=== PATIENT | female | born 1975 | race Caucasian/White ===

== ENCOUNTER → 2016-07-25 | Outpatient (CLI) | payer OTHER ==
[2016-07-25 10:26] LABS: Basophils % (A) 1 %; CH 32.5; CHCM 33.4; Eosinophils # (A) 0.2 k/uL (0-0.7); Eosinophils % (A) 2 %; HCT 43.3 % (34.0-46.0); HDW 2.27; HGB 14.3 gm/dL (11.4-16.0); Luc # (Auto) 0.19; Luc % (Auto) 2; Lymphocytes # (A) 2.4 k/uL (1.0-4.8); Lymphocytes % (A) 28 %; MCH 32.3 pg (25.0-35.0); MCHC 33.1 g/dL (31.0-37.0); MCV 97.6 fL (80.0-100.0); Mean Platelet Volume 6.5; Monocytes # (A) 0.8 k/uL (0-1.0); Monocytes % (A) 9 %; Neutrophils # (A) 5.1 k/uL (1.3-7.7); Neutrophils % (A) 58 %; RBC 4.44 m/uL (3.80-5.40); RDW 13.2 % (11.5-15.5); WBC 8.8 k/uL (3.8-10.6); WBC (Perox) 9.01
== END ==
LOC: LABWHC1 09:41
PROVIDERS: ATTEND Obstetrics & Gynecology
DX: Z01.812 Encounter for preprocedural laboratory examination (principal)
CPT/HCPCS: 36415; 85025

== ENCOUNTER 2016-08-03 07:03 | Day surgery (SDC) | payer OTHER ==
--- NOTE | 2016-08-02 11:51 | P.HPOB ---
History of Present Illness H&P Date: 08/02/16 Chief Complaint: family planning 40 year old presents for laparoscopic tubal ligation. Review of Systems All systems: negative Constitutional: Denies chills, Denies fever Eyes: denies blurred vision, denies pain Ears, nose, mouth and throat: Denies headache, Denies sore throat Cardiovascular: Denies chest pain, Denies shortness of breath Respiratory: Denies cough Gastrointestinal: Denies abdominal pain, Denies diarrhea, Denies nausea, Denies vomiting Genitourinary: Denies dysuria, Denies hematuria Musculoskeletal: Denies myalgias Integumentary: Denies pruritus, Denies rash Neurological: Denies numbness, Denies weakness Psychiatric: Denies anxiety, Denies depression Endocrine: Denies fatigue, Denies weight change Past Medical History Past Medical History: Hyperlipidemia, Hypertension, Supraventricular Tachycardia (SVT) Additional Past Medical History / Comment(s): PAST HX SVT-RESOLVED WITH ABLATION History of Any Multi-Drug Resistant Organisms: None Reported Past Surgical History: Adenoidectomy, Breast Surgery, Cardiac Ablation, Heart Catheterization Additional Past Surgical History / Comment(s): RT? BREAST LUMPECTOMY-BENIGN. COLPOSCOPY Past Anesthesia/Blood Transfusion Reactions: No Reported Reaction Past Psychological History: Anxiety, Depression Smoking Status: Current every day smoker Past Alcohol Use History: Occasional Additional Past Alcohol Use History / Comment(s): HAS SMOKED 1PPD SINCE AGE 17 Past Drug Use History: None Reported - Past Family History Mother Family Medical History: No Reported History Medications and Allergies Home Medications Medication Instructions Recorded Confirmed Type Atorvastatin [Lipitor] 20 mg PO HS 08/01/16 08/01/16 History Propranolol LA [Inderal LA] 80 mg PO HS 08/01/16 08/01/16 History Venlafaxine HCl [Effexor XR] 225 mg PO HS 08/01/16 08/01/16 History busPIRone HCl [Buspar] 10 mg PO HS 08/01/16 08/01/16 History Allergies Allergy/AdvReac Type Severity Reaction Status Date / Time No Known Allergies Allergy Verified 08/01/16 14:37 Exam Osteopathic Statement: *. No significant issues noted on an osteopathic structural exam other than those noted in the History and Physical/Consult. Heart: RRR Lungs: CTAB Abdomen: soft, nontender Extremeties: neg jaspal's Assessment and Plan (1) Family planning Status: Acute Plan: 1. laparoscopic tubal ligation
[~2016-08-03 07:03] MED LIST: FAMOTIDINE 20 MG/2 ML VIAL IV PRN; HYDROmorphone 1 MG/ML 1 ML SYRINGE IVP PRN; LACTATED RINGERS 1,000 ML IV SCH; LIDOCAINE 1% 20 ML VIAL (10MG/ML) FOR IV START INTRADERMA PRN; MIDAZOLAM 2 MG/2 ML VIAL IV PRN; ONDANSETRON 4 MG/2 ML VIAL IVP ONE; Pre Op ABX Message 1 EACH MISC MISCELLANE ONE; SCOPOLAMINE 1.5MG/72HR PATCH TRANSDERM ONE
[2016-08-03] MEDS ORDERED: ONDANSETRON 4 MG/2 ML VIAL IVP ONE (07:37)
[2016-08-03] MEDS ORDERED: MIDAZOLAM 2 MG/2 ML VIAL ONE (07:58)
[2016-08-03] MEDS ORDERED: GLYCOPYRROLATE 0.2 MG/ML 2 ML VIAL ONE (07:58)
[2016-08-03] MEDS ORDERED: LIDOCAINE 1% INJ 10MG/ML (20 ML MDV) ONE (07:58)
[2016-08-03] MEDS ORDERED: KETOROLAC 30 MG/ML 1 ML VIAL ONE (07:58)
[2016-08-03] MEDS ORDERED: fentaNYL (PF) 50 MCG/ML 2 ML AMP ONE (07:58)
[2016-08-03] MEDS ORDERED: SUCCINYLCHOLINE CHLORIDE 100 MG/5 ML SYR IV ONE (07:58)
[2016-08-03] MEDS ORDERED: ROCURONIUM BROMIDE 10 MG/ML 10 ML VIAL IV ONE (07:58)
[2016-08-03] MEDS ORDERED: NEOSTIGMINE 1 MG/ML 10 ML VIAL ONE (07:58)
[2016-08-03] MEDS ORDERED: PROPOFOL 10 MG/ML 20 ML VIAL IV ONE (07:58)
[2016-08-03] MEDS ORDERED: BUPIVACAINE (PF) 0.25% 30 ML VIAL SQ ONE ×2 (08:14)
--- NOTE | 2016-08-03 08:30 | P.OP ---
Date of Procedure: 08/03/16 Preoperative Diagnosis: 1. Family planning Postoperative Diagnosis: 1. Family planning Procedure(s) Performed: Laparoscopic tubal ligation Anesthesia: MAIKOL Surgeon: Deedee Lynn Estimated Blood Loss (ml): 5 IV fluids (ml): 400 Urine output (ml): 10 Pathology: none sent Condition: stable Disposition: PACU Operative Findings: Normal uterus, tubes, ovaries Description of Procedure: Patient was taken to the operating room where general anesthesia was obtained without difficulty. She was prepped and draped in normal sterile fashion in the dorsal lithotomy position, legs placed in the Tashi stirrups. Bladder drained of all urine. [place] speculum placed in the vagina and the anterior lip the cervix was grasped with single-tooth tenaculum. The uterus is sounded to 7 cm and the kroner manipulator was placed. Attention was then turned to the abdomen and gloves were changed. A 10 mm infraumbilical incision was made the scalpel and 10 mm optical trocar was placed under direct visualization. A 5 mm suprapubic Incision was made and a 5 mm optical trocar was placed under direct visualization. Survey of the pelvis revealed normal uterus tubes and ovaries. The left fallopian tube was grasped with a Kleppinger and fulgurated 2 -3 cm on this side in the ampullar portion. The right fallopian tube was grasped with a Kleppinger and fulgurated 2-3 cm in the ampullar portion. All instruments were then removed from the abdomen and vagina. The 10 mm infraumbilical incision was closed with 0 Vicryl and the fascial layer and then 4-0 Vicryl in a subcuticular fashion. The 5 mm incision was closed with 4-0 Vicryl in a subcuticular fashion. Patient tolerated procedure well, sponge and instrument counts correct 2 and she was taken to recovery room in stable condition.
[2016-08-03 08:46] VITALS: TEMP 96.8
[2016-08-03] MEDS ORDERED: LACTATED RINGERS 1,000 ML IV ONE (09:18)
[2016-08-03 10:41] VITALS: BP 106/78; PULSE 70; RESP 16
== END 2016-08-03 10:40 | disposition home or self-care (01) ==
LOC: OR 07:03
PROVIDERS: ATTEND Obstetrics & Gynecology
DX: Z30.2 Encounter for sterilization (principal); E78.5 Hyperlipidemia, unspecified; I10 Essential (primary) hypertension; I47.1 Supraventricular tachycardia; F17.200 Nicotine dependence, unspecified, uncomplicated; F41.9 Anxiety disorder, unspecified; F32.9 Major depressive disorder, single episode, unspecified; Z79.899 Other long term (current) drug therapy
CPT/HCPCS: 58670; J2250; J2710; J2405; J2001; J3010; J1885; J1170; J0330; J2704

== ENCOUNTER 2017-01-14 16:29 | Inpatient (IN) | payer MEDICAID, OTHER ==
--- NOTE | 2017-01-14 17:27 | ED ---
Psych HPI - General Chief Complaint: Psychiatric Symptoms Stated Complaint: Mental Health Time Seen by Provider: 01/14/17 17:04 Source: patient, RN notes reviewed Mode of arrival: ambulatory Limitations: no limitations - History of Present Illness Initial Comments: 41-year-old female presents emergency Department with chief complaint of depression, suicidal thoughts. Patient states she's been having increased depression last few weeks. Patient states she has relapsed on alcohol abuse. She states she drinks 12 beers a night. Patient states that she's had thoughts of driving her vehicle off into the ditch and kill herself. She states that she almost of this other day dose she talked to her father that time which talked her out of it. Patient is brought to emergency room with family for concerns for depression and suicidal thoughts. Denies any illicit drug use. Patient denies any physical complaints at this time. - Related Data Home Medications Medication Instructions Recorded Confirmed Atorvastatin [Lipitor] 20 mg PO DAILY 08/01/16 01/14/17 Propranolol LA [Inderal LA] 80 mg PO DAILY 08/01/16 01/14/17 Venlafaxine HCl [Effexor XR] 225 mg PO DAILY 08/01/16 01/14/17 busPIRone HCl [Buspar] 10 mg PO DAILY 08/01/16 01/14/17 ALPRAZolam [Xanax] 0.25 mg PO BID PRN 01/14/17 01/14/17 HYDROcodone/APAP 5-325MG [[place] 1 tab PO BID PRN 01/14/17 01/14/17 5-325] Allergies Allergy/AdvReac Type Severity Reaction Status Date / Time No Known Allergies Allergy Verified 01/14/17 17:55 Review of Systems ROS Statement: Those systems with pertinent positive or pertinent negative responses have been documented in the HPI. ROS Other: All systems not noted in ROS Statement are negative. Past Medical History Past Medical History: Asthma, Hyperlipidemia, Hypertension, Skin Disorder History of Any Multi-Drug Resistant Organisms: None Reported Past Surgical History: Heart Catheterization, Tubal Ligation Additional Past Surgical History / Comment(s): heart ablation for PSVT, (L) breast biopsy Past Psychological History: Anxiety, Depression Smoking Status: Current every day smoker Past Alcohol Use History: Daily Past Drug Use History: None Reported General Exam Limitations: no limitations General appearance: alert, in no apparent distress Head exam: Present: atraumatic, normocephalic, normal inspection Eye exam: Present: normal appearance, PERRL, EOMI. Absent: scleral icterus, conjunctival injection, periorbital swelling ENT exam: Present: normal exam, normal oropharynx, mucous membranes moist, TM's normal bilaterally, normal external ear exam Neck exam: Present: normal inspection, full ROM. Absent: tenderness, meningismus, lymphadenopathy Respiratory exam: Present: normal lung sounds bilaterally. Absent: respiratory distress, wheezes, rales, rhonchi, stridor Cardiovascular Exam: Present: regular rate, normal rhythm, normal heart sounds. Absent: systolic murmur, diastolic murmur, rubs, gallop, clicks GI/Abdominal exam: Present: soft, normal bowel sounds. Absent: distended, tenderness, guarding, rebound, rigid Back exam: Absent: CVA tenderness (R), CVA tenderness (L) Neurological exam: Present: alert, oriented X3, CN II-XII intact Psychiatric exam: Present: flat affect Skin exam: Present: warm, dry, intact, normal color. Absent: rash Course Vital Signs 01/14/17 16:37 Temperature 98.2 F Pulse Rate 83 Respiratory 18 Rate Blood Pressure 137/82 O2 Sat by Pulse 98 Oximetry Disposition Clinical Impression: Depression Disposition: ADMITTED IP TO THIS HOSP Condition: Stable Referrals: Opal Murillo DO [Primary Care Provider] - 1-2 days
[2017-01-14] MEDS ORDERED: MAGNESIUM HYDROXIDE 2,400 MG/10 ML CUP PO PRN (21:25)
[2017-01-14] MEDS ORDERED: MAG HYDROX/AL HYDROX/SIMETH 30 ML CUP PO PRN (21:25)
[2017-01-15 02:54] VITALS: BMI 27.7
[2017-01-15] MEDS: PROPRANOLOL LA 80 MG CAP.SA.24H PO SCH (08:18)
[2017-01-15] MEDS: busPIRone HCl 10 MG TAB PO SCH (08:18)
[2017-01-15] MEDS: ATORVASTATIN 20 MG TAB PO SCH (08:18)
[2017-01-15] MEDS: VENLAFAXINE HCL ER 75 MG CAP PO SCH (08:18)
[2017-01-15] MEDS: NICOTINE 14MG/24HR PATCH TRANSDERM SCH (08:19)
[2017-01-15 08:50] LABS: Basophils # (A) 0.1 k/uL (0-0.2); Basophils % (A) 1 %; CH 32.4; CHCM 33.4; Eosinophils # (A) 0.2 k/uL (0-0.7); Eosinophils % (A) 2 %; HCT 47.9 % (34.0-46.0); HDW 2.39; HGB 15.7 gm/dL (11.4-16.0); Luc # (Auto) 0.16; Luc % (Auto) 2; Lymphocytes # (A) 2.8 k/uL (1.0-4.8); Lymphocytes % (A) 30 %; MCHC 32.8 g/dL (31.0-37.0); MCV 97.6 fL (80.0-100.0); Monocytes # (A) 0.8 k/uL (0-1.0); Monocytes % (A) 8 %; Neutrophils # (A) 5.3 k/uL (1.3-7.7); Neutrophils % (A) 57 %; RBC 4.91 m/uL (3.80-5.40); WBC 9.3 k/uL (3.8-10.6); WBC (Perox) 8.76
[2017-01-15 09:02] LABS: ALT 38 U/L (9-52); AST 27 U/L (14-36); Alkaline Phosphatase 98 U/L (38-126); Anion Gap 10 mmol/L; Blood Urea Nitrogen 8 mg/dL (7-17); Calcium 9.2 mg/dL (8.4-10.2); Carbon Dioxide 23 mmol/L (22-30); Chloride 106 mmol/L (98-107); Glucose 79 mg/dL (74-99); Non-African American GFR(MDRD) >60 (>60 ml/min/1.73 sqM); Potassium 4.2 mmol/L (3.5-5.1); Sodium 139 mmol/L (137-145); Total Bilirubin 1.1 mg/dL (0.2-1.3); Total Protein 6.6 g/dL (6.3-8.2)
[2017-01-15] MEDS: ACETAMINOPHEN TAB 325 MG TAB PO PRN (09:22)
[2017-01-15] MEDS: LORazepam 1 MG TAB PO PRN ×2 (14:22→22:08)
--- NOTE | 2017-01-15 15:53 | P.HP ---
Psychiatric H&P - . H&P Date: 01/15/17 History & Physical: Allergies Allergy/AdvReac Type Severity Reaction Status Date / Time No Known Allergies Allergy Verified 01/14/17 22:07 Vital Signs Temp 98.4 F 01/15/17 02:41 Pulse 87 01/15/17 11:05 Resp 16 01/15/17 11:05 BP 127/82 01/15/17 11:05 Pulse Ox 98 01/14/17 19:53 Intake & Output 01/14/17 01/15/17 01/15/17 18:59 06:59 18:59 Weight 77.111 kg 73.3 kg 73.9 kg Laboratory Last Values WBC 9.3 k/uL (3.8-10.6) 01/15/17 07:42 RBC 4.91 m/uL (3.80-5.40) 01/15/17 07:42 Hgb 15.7 gm/dL (11.4-16.0) 01/15/17 07:42 Hct 47.9 % (34.0-46.0) H 01/15/17 07:42 MCV 97.6 fL (80.0-100.0) 01/15/17 07:42 MCH 32.0 pg (25.0-35.0) 01/15/17 07:42 MCHC 32.8 g/dL (31.0-37.0) 01/15/17 07:42 RDW 13.0 % (11.5-15.5) 01/15/17 07:42 Plt Count 213 k/uL (150-450) 01/15/17 07:42 Neutrophils % 57 % 01/15/17 07:42 Lymphocytes % 30 % 01/15/17 07:42 Monocytes % 8 % 01/15/17 07:42 Eosinophils % 2 % 01/15/17 07:42 Basophils % 1 % 01/15/17 07:42 Neutrophils # 5.3 k/uL (1.3-7.7) 01/15/17 07:42 Lymphocytes # 2.8 k/uL (1.0-4.8) 01/15/17 07:42 Monocytes # 0.8 k/uL (0-1.0) 01/15/17 07:42 Eosinophils # 0.2 k/uL (0-0.7) 01/15/17 07:42 Basophils # 0.1 k/uL (0-0.2) 01/15/17 07:42 Sodium 139 mmol/L (137-145) 01/15/17 07:42 Potassium 4.2 mmol/L (3.5-5.1) 01/15/17 07:42 Chloride 106 mmol/L (98-107) 01/15/17 07:42 Carbon Dioxide 23 mmol/L (22-30) 01/15/17 07:42 Anion Gap 10 mmol/L 01/15/17 07:42 BUN 8 mg/dL (7-17) 01/15/17 07:42 Creatinine 0.75 mg/dL (0.52-1.04) 01/15/17 07:42 Est GFR (MDRD) Af Amer >60 (>60 ml/min/1.73 sqM) 01/15/17 07:42 Est GFR (MDRD) Non-Af >60 (>60 ml/min/1.73 sqM) 01/15/17 07:42 Glucose 79 mg/dL (74-99) 01/15/17 07:42 Calcium 9.2 mg/dL (8.4-10.2) 01/15/17 07:42 Total Bilirubin 1.1 mg/dL (0.2-1.3) 01/15/17 07:42 AST 27 U/L (14-36) 01/15/17 07:42 ALT 38 U/L (9-52) 01/15/17 07:42 Alkaline Phosphatase 98 U/L (38-126) 01/15/17 07:42 Total Protein 6.6 g/dL (6.3-8.2) 01/15/17 07:42 Albumin 3.7 g/dL (3.5-5.0) 01/15/17 07:42 TSH 1.270 mIU/L (0.465-4.680) 01/15/17 07:42 Urine Opiates Screen Not Detected (NotDetected) 01/14/17 18:52 Ur Oxycodone Screen Not Detected (NotDetected) 01/14/17 18:52 Urine Methadone Screen Not Detected (NotDetected) 01/14/17 18:52 Ur Propoxyphene Screen Not Detected (NotDetected) 01/14/17 18:52 Ur Barbiturates Screen Not Detected (NotDetected) 01/14/17 18:52 U Tricyclic Antidepress Not Detected (NotDetected) 01/14/17 18:52 Ur Phencyclidine Scrn Not Detected (NotDetected) 01/14/17 18:52 Ur Amphetamines Screen Not Detected (NotDetected) 01/14/17 18:52 U Methamphetamines Scrn Not Detected (NotDetected) 01/14/17 18:52 U Benzodiazepines Scrn Not Detected (NotDetected) 01/14/17 18:52 Urine Cocaine Screen Not Detected (NotDetected) 01/14/17 18:52 U Marijuana (THC) Screen Not Detected (NotDetected) 01/14/17 18:52 01/15/17 15:45 IDENTIFYING DATA: 41-year-old female patient HPI: Patient is admitted to the inpatient psychiatric unit [facility] on a voluntary basis with depression and thoughts of suicide. Patient states she's always had depression but her thoughts were becoming overwhelming and had thoughts of suicide and says she almost ran her car off the road. She says for 3 days she was having thoughts of suicide and was almost acting out on them. She has she has 2 kids that she thinks of but her thoughts were starting to overwhelm her and she also had a plan to overdose and run into the [place] as well as drive her car off the road. She does her friends brought her here to the hospital. She does admit to a lack of interest in things lately decreased enjoyment of things. She says she used to be a worrier but her medication Effexor has helped her significant. She does describe panic attacks. She also describes decreased appetite lately. She missed her recent crying spells, has racing thoughts and also describes irritability. She also been dealing with feelings of loneliness and financial stressors. PAST PSYCHIATRIC HISTORY: She was admitted to [facility] twice is a 19-year-old , had 2 suicide attempts she says once with a knife and once she attempted suffocation. She has a history of recurrent depression. She's been on Effexor XL which has been amazing for she states the 225 M daily and BuSpar 10 mg daily. She also has a history of taking Xanax as needed. In the past she's been on Paxil, Prozac, Zoloft, Wellbutrin and none worked that well she says on Wellbutrin she almost jumped out of a window. PMH: PSVT, had ablation treatment, hypertension, hypercholesterolemia, asthma, back pain, neck pain, concerns of sciatica ALLERGIES: No known ALLERGIES MEDICATIONS: Tylenol when necessary, Lipitor, BuSpar, Ativan when necessary, milk of magnesia when necessary, Maalox when necessary, propranolol LA, Effexor XR, nicotine patch CHEMICAL DEPENDENCY HISTORY: Patient states she's been drinking alcohol daily lately she does have the desire to get her sobriety back. She thinks she's been self-medicating. When she was younger she used pot and try different things but has not used those in 20 years. FAMILY PSYCHIATRIC HISTORY: Mom with depression/anxiety questionable bipolar disorder. FAMILY CHEMICAL DEPENDENCY HISTORY: Mom with abusing pain medications and alcoholism, grandma with alcoholism, many aunts and uncles with alcoholism SOCIAL HISTORY: She lives with her kids who are 13 and 11. She was once and . 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 No current relationship. MENTAL STATUS EXAM: She is alert and cooperative with the interview. Her speech is fluent, not rapid or pressured. Her mood is described as "all over the place today." Regarding thoughts of suicide she said this morning she had thoughts like why is she here but not as strong regarding thoughts of suicide she denies any current thoughts of suicide and reports that she feels safe here. She denies any thoughts of harm to others. She denies any auditory or visual hallucinations. She does not make any little delusional statements. She does not show any agitation. Cognitively she appears very grossly intact. I do not note any significant memory disturbance or disorientation. Insight is adequate, judgment shows evidence of recent impairment. STRENGTHS/WEAKNESSES: Strengths-seeking treatment, some supports; weaknesses- coping skills, currently unemployed, alcohol use INTELLECTUAL FUNCTIONING: Average IMPRESSIONS: Major depressive disorder, recurrent; generalized anxiety disorder ; rule out panic disorder; alcohol use disorder PLAN: Patient be admitted to the inpatient psychiatric unit [facility] on a voluntary basis. She'll be placed on SP 15 minute precautions. We'll monitor her mood and monitor regarding any thoughts of suicide. She will be offered multiple group and activity therapies. Baseline laboratory workup will be done the patient and medical consultation will be ordered. We'll maintain Effexor XR as current for depression and anxiety with history of positive response. We will maintain BuSpar as current for anxiety. We will add Lamictal 25 mg at bedtime to help with augmentation for mood. We will look into support systems. We'll continue to cover this patient for Dr. Salter through the weekend, Dr. Salter will initiate care this patient starting tomorrow. Estimated length of stay is 3-5 days. Prognosis is guarded.
--- NOTE | 2017-01-15 16:43 | P.CONS ---
History of Present Illness - Reason for Consult Consult date: 01/15/17 This regarding hypertension and other medical issues - History of Present Illness This 41-year-old woman with a past medical history of asthma hypertension hyperlipidemia history of EtOH anxiety depression being followed by Dr. banuelos in the outpatient setting admitted for psychiatric evaluation. Patient apparently takes only as needed albuterol on a when necessary basis for extreme asthma associated bronchitis. Patient also had back and neck pain. There was no fever rigors or nausea vomiting. There was no history of chest pain palpitations shortness of breath either. Review of Systems REVIEW OF SYSTEMS: ENT: No diminished vision or hearing. CARDIOVASCULAR: Mentioned earlier. RESPIRATORY: As mentioned earlier. GI: No nauscea, vomiting or diarrhea. : No dysuria or retention. NERVOUS SYSTEM: No numbness or weakness. ALLERGY/IMMUNOLOGY: No asthma or hay fever. MUSCULOSKELETAL: As mentioned earlier. HEMATOLOGY/ONCOLOGY: No history of anemia. ENDOCRINE: No history of diabetes or hypothyroidism. CONSTITUTIONAL: As mentioned earlier. DERMATOLOGY: Negative. PSYCHIATRY: Mentioned earlier. RHEUMATOLOGY: Negative. Past Medical History Past Medical History: Asthma, Hyperlipidemia, Hypertension, Skin Disorder History of Any Multi-Drug Resistant Organisms: None Reported Past Surgical History: Heart Catheterization, Tubal Ligation Additional Past Surgical History / Comment(s): heart ablation for PSVT, (L) breast biopsy Smoking Status: Current every day smoker Medications and Allergies Home Medications Medication Instructions Recorded Confirmed Type Atorvastatin [Lipitor] 20 mg PO DAILY 08/01/16 01/14/17 History Propranolol LA [Inderal LA] 80 mg PO DAILY 08/01/16 01/14/17 History Venlafaxine HCl [Effexor XR] 225 mg PO DAILY 08/01/16 01/14/17 History busPIRone HCl [Buspar] 10 mg PO DAILY 08/01/16 01/14/17 History ALPRAZolam [Xanax] 0.25 mg PO BID PRN 01/14/17 01/14/17 History HYDROcodone/APAP 5-325MG [[place] 1 tab PO BID PRN 01/14/17 01/14/17 History 5-325] Allergies Allergy/AdvReac Type Severity Reaction Status Date / Time No Known Allergies Allergy Verified 01/14/17 22:07 Physical Exam Vitals: Vital Signs Temp Pulse Pulse Resp BP BP Pulse Ox 01/15/17 11:05 87 16 127/82 01/15/17 08:20 87 16 127/82 01/15/17 02:41 98.4 F 73 16 126/81 01/15/17 01:50 98.2 F 68 16 120/74 01/14/17 19:53 98.1 F 72 18 141/82 98 Intake and Output 01/15/17 01/15/17 01/15/17 06:59 14:59 22:59 Other: Weight 73.3 kg 73.9 kg Patient Weight 01/16/17 06:59 Weight 73.9 kg On exam, alert and oriented x3. HEENT: Conjunctivae normal. eyes normal. NECK: No JVD. No thyroid enlargement. No LNs CARDIOVASCULAR: S1, S2 muffled. No murmur RESPIRATION: Breath sounds diminished in the bases. No rhonchi or crackles. No bronchial breathing. ABDOMEN: Soft, nontender . No guarding. no masses palpable. No ascites, No hepatosplenomegaly.Bowel sounds heard. LEGS: No edema. no swelling NERVOUS SYSTEM: Cranial N 2-12 grossly normal. Moves all 4 limbs. No focal deficits. No sensory deficit. Gait normal. No ataxia. No signs of cerebellar dysfucntion. Skin: no ulcer no rash Joints: No active swelling. No inflammation. Lymphatic system. No LN neck axilla or groin. Results CBC & Chem 7: 01/15/17 07:42 01/15/17 07:42 Labs: Abnormal Lab Results - Last 24 Hours (Table) 01/15/17 Range/Units 07:42 Hct 47.9 H (34.0-46.0) % Assessment and Plan Plan: Assessment 1. Bronchial asthma. 2. Hypertension 3. Hyperlipidemia 4. Anxiety depression 5. DJD back and neck pain. Plan In this 41-year-old woman who was admitted for psychiatric evaluation at this time I would recommend to continue the home medications. Patient is medically stable. Patient can use albuterol on a when necessary basis. I would also recommend the patient to follow-up with the primary care physician in the outpatient setting closely after discharge. We will follow the patient closely with you. I'll be happy to review any abnormal labs with you. Thank you Dr. sharp which for letting us part in the care of this patient.
[2017-01-15] MEDS: lamoTRIgine 25 MG TAB PO SCH (20:53)
[2017-01-16] MEDS: VENLAFAXINE HCL ER 75 MG CAP PO SCH (09:29)
[2017-01-16] MEDS: NICOTINE 14MG/24HR PATCH TRANSDERM SCH (09:29)
[2017-01-16] MEDS: ATORVASTATIN 20 MG TAB PO SCH (09:30)
[2017-01-16] MEDS: PROPRANOLOL LA 80 MG CAP.SA.24H PO SCH (09:30)
[2017-01-16] MEDS: busPIRone HCl 10 MG TAB PO SCH (09:30)
[2017-01-16] MEDS: LORazepam 1 MG TAB PO PRN ×2 (09:31→20:50)
[2017-01-16] MEDS: ACETAMINOPHEN TAB 325 MG TAB PO PRN ×2 (09:32→18:30)
[2017-01-16] MEDS: NICOTINE 21MG/24HR PATCH TRANSDERM SCH (12:20)
--- NOTE | 2017-01-16 15:55 | P.PN ---
Progress Note - Text Progress Note Date: 01/16/17 41yo CF admitted on 01/14/17 after presenting with suicidal thoughts Last 24hrs: Upon presentation this morning, patient is pleasant and cooperative. She reports that her mood has been "up and down" and was "angry" this morning without provocation. She denies SI to me today but does report last suicidal ideation was yesterday. States that she slept well last night. She has been attending groups. Feels that her alcohol intake is a problem but not interested in rehab as she feels she can attend AA meetings for help with sobriety. Does not feel the Nicotine patch has been effective in treating her cigarette cravings. MSE: Pt appears stated age, well-groomed and ambulating without assistance. Her speech is of normal volume and rate. Pt has good eye contact. Mood appears to be dysthymic and affect restricted with some tearfulness. No reported hallucinations. She denies SI and HI at this time. Thought process is linear and logical. Memory is grossly intact. Judgment and insight is fair. Assessment: 1. Major depressive disorder, recurrent, moderate 2. Generalized anxiety disorder 3. Alcohol use disorder Plan: Discussed options of augmentation of antidepressant with medications such as Abilify. However, pt reluctant to start an antipsychotic for fear of weight gain. She would like to continue the [place] for now to see if it will help with mood stabilization as she feels her mood has been variable. Continue medications as prescribed. Encourage continued participation in group activities. Continue to monitor for safety. Discuss discharge planning with treatment team and f/u, including AA with SW.
[2017-01-16] MEDS: lamoTRIgine 25 MG TAB PO SCH (20:50)
[2017-01-17] MEDS: ACETAMINOPHEN TAB 325 MG TAB PO PRN (08:51)
[2017-01-17] MEDS: PROPRANOLOL LA 80 MG CAP.SA.24H PO SCH (08:51)
[2017-01-17] MEDS: ATORVASTATIN 20 MG TAB PO SCH (08:51)
[2017-01-17] MEDS: busPIRone HCl 10 MG TAB PO SCH (08:51)
[2017-01-17] MEDS: NICOTINE 21MG/24HR PATCH TRANSDERM SCH (08:51)
[2017-01-17] MEDS: VENLAFAXINE HCL ER 75 MG CAP PO SCH (08:51)
[2017-01-17] MEDS: LORazepam 1 MG TAB PO PRN ×2 (08:51→21:26)
--- NOTE | 2017-01-17 11:02 | P.PN ---
Progress Note - Text Progress Note Date: 01/17/17 41yo CF admitted on 01/14/17 after presenting with suicidal thoughts Last 24hrs: Upon presentation this morning, patient is pleasant and cooperative. She states that she feels "much better" after talking to her family and kids. No longer having crying spells. Has been attending groups regularly. Also, compliant with medications and reports no adverse effect. Patient continues to deny suicidal ideations. Also, states that she has not had any cravings for alcohol. Plans to attend AA meetings on discharge. However, pt has been craving cigarettes and feels that the increased dose of nicotine patch is still ineffective. States that she has no desire to quit smoking at this time and would prefer to not be discharged on any medications to aide in smoking cessation. States that she slept well last night. No acute issues overnight according to staff. MSE: Pt appears stated age, well-groomed and ambulating without assistance. Her speech is of normal volume and rate. Pt has good eye contact. Mood is "much better" and appears euthymic. Affect is appropriate and broad. No reported hallucinations. She denies SI and HI at this time. Thought process is linear and logical. Memory is grossly intact. Judgment and insight is fair. Assessment: 1. Major depressive disorder, recurrent, moderate 2. Generalized anxiety disorder 3. Alcohol use disorder Plan: Continue medications as prescribed. Encourage continued participation in group activities. Continue to monitor for safety. Discuss discharge planning with treatment team and f/u, including AA with SW.
[2017-01-17] MEDS: lamoTRIgine 25 MG TAB PO SCH (21:24)
[2017-01-18] MEDS ORDERED: MAG HYDROX/AL HYDROX/SIMETH 30 ML CUP ONE (04:30)
[2017-01-18] MEDS ORDERED: ONDANSETRON ODT 4 MG TAB PO PRN (05:25)
[2017-01-18] MEDS: busPIRone HCl 10 MG TAB PO SCH (08:36)
[2017-01-18] MEDS: VENLAFAXINE HCL ER 75 MG CAP PO SCH (08:36)
[2017-01-18] MEDS: NICOTINE 21MG/24HR PATCH TRANSDERM SCH (08:36)
[2017-01-18] MEDS: PROPRANOLOL LA 80 MG CAP.SA.24H PO SCH (08:37)
[2017-01-18] MEDS: ATORVASTATIN 20 MG TAB PO SCH (08:37)
[2017-01-18] MEDS: LORazepam 1 MG TAB PO PRN ×2 (08:39→21:25)
[2017-01-18] MEDS: ACETAMINOPHEN TAB 325 MG TAB PO PRN ×2 (08:41→22:00)
[2017-01-18 10:10] LABS: ALT 40 U/L (9-52); AST 26 U/L (14-36); Alkaline Phosphatase 84 U/L (38-126); Anion Gap 11 mmol/L; Blood Urea Nitrogen 9 mg/dL (7-17); Calcium 9.2 mg/dL (8.4-10.2); Carbon Dioxide 25 mmol/L (22-30); Chloride 101 mmol/L (98-107); Glucose 112 mg/dL (74-99); Non-African American GFR(MDRD) >60 (>60 ml/min/1.73 sqM); Potassium 4.1 mmol/L (3.5-5.1); Sodium 137 mmol/L (137-145); Total Bilirubin 0.7 mg/dL (0.2-1.3); Total Protein 6.8 g/dL (6.3-8.2)
[2017-01-18 10:28] VITALS: RESP 18
--- NOTE | 2017-01-18 13:52 | XR ---
EXAMINATION TYPE: XR KUB DATE OF EXAM: 01/18/2017 COMPARISON: NONE INDICATION: Abdomen pain vomiting diarrhea TECHNIQUE: Single view abdomen supine view FINDINGS: There is a normal bowel gas pattern. Psoas margins are normal. No organomegaly is present. Calcifications in the right hemipelvis. Phlebolith and distal ureteral stone within the differential. This measures 0.4 cm in diameter. IMPRESSION: 1. Unremarkable Abdomen 2. Phlebolith versus distal right ureteral stone.
[2017-01-18] MEDS ORDERED: ALBUTEROL INHALER 60 PUFF/8 GM INHALER INHALATION PRN (13:59)
[2017-01-18 17:14] LABS: Appearance,Urine Cloudy (Clear); Bacteria,Urine Rare /hpf; Bilirubin,Urine 1+ (Negative); Glucose,Urine (UA) Negative (Negative); Ketones,Urine 1+ (Negative); Leukocyte Esterase,Urine Negative (Negative); Mucus,Urine Many /hpf; Nitrite,Urine Negative (Negative); PH, Urine 5.5 (5.0-8.0); Particle Count 6377; Protein,Urine Trace (Negative); RBC,Urine 1 /hpf (0-5); Squamous Epithelial Cell,Urine <1 /hpf (0-4); UA Billing (MACRO vs. MICRO) MICRO; Urobilinogen,Urine <2.0 mg/dL (<2.0); WBC,Urine <1 /hpf (0-5)
--- NOTE | 2017-01-18 17:55 | P.PN ---
Progress Note - Text Progress Note Date: 01/18/17 41yo CF admitted on 01/14/17 after presenting with suicidal thoughts Last 24hrs: Upon presentation this morning, patient is pleasant and cooperative. She states that she feels "good" and continues to deny SI at this time. Also no longer having crying spells. Has been attending groups regularly. Also, compliant with medications and reports no adverse effect. Plans to attend AA meetings and counseling sessions on discharge. States that she did not sleep well last night as she woke up with diarrhea and vomiting. Medicine consulted to evaluate and ordered a KUB, which is pending. Currently reports that she continues to feel a sharp pain in her R side but no longer experiencing any n/v/ d. MSE: Pt appears stated age, well-groomed and ambulating without assistance. Her speech is of normal volume and rate. Pt has good eye contact. Mood is "good" and appears euthymic. Affect is appropriate and broad. No reported hallucinations. She denies SI and HI at this time. Thought process is linear and logical. Memory is grossly intact. Judgment and insight is fair. Assessment: 1. Major depressive disorder, recurrent, moderate 2. Generalized anxiety disorder 3. Alcohol use disorder Plan: Continue medications as prescribed. Encourage continued participation in group activities. Continue to monitor for safety. Discuss discharge planning with treatment team and possible DC tomorrow. Awaiting further recommendations from Medicine team.
[2017-01-18] MEDS: LOPERAMIDE 2 MG CAP PO PRN ×2 (18:32→21:25)
[2017-01-18] MEDS: lamoTRIgine 25 MG TAB PO SCH (21:19)
[2017-01-19 06:44] VITALS: BP 140/83; PULSE 101; TEMP 98.2
[2017-01-19 07:57] LABS: Basophils % (A) 0 %; CH 33.8; CHCM 34.4; Eosinophils # (A) 0.2 k/uL (0-0.7); Eosinophils % (A) 1 %; HCT 47.1 % (34.0-46.0); HDW 2.34; HGB 15.7 gm/dL (11.4-16.0); Luc % (Auto) 1; Lymphocytes # (A) 1.7 k/uL (1.0-4.8); Lymphocytes % (A) 16 %; MCHC 33.4 g/dL (31.0-37.0); MCV 98.8 fL (80.0-100.0); Mean Platelet Volume 7.4; Monocytes # (A) 0.9 k/uL (0-1.0); Monocytes % (A) 8 %; Neutrophils # (A) 7.6 k/uL (1.3-7.7); Neutrophils % (A) 73 %; RBC 4.77 m/uL (3.80-5.40); RDW 13.9 % (11.5-15.5); WBC 10.5 k/uL (3.8-10.6); WBC (Perox) 10.09
[2017-01-19] MEDS: NICOTINE 21MG/24HR PATCH TRANSDERM SCH (08:53)
[2017-01-19] MEDS: ATORVASTATIN 20 MG TAB PO SCH (08:53)
[2017-01-19] MEDS: PROPRANOLOL LA 80 MG CAP.SA.24H PO SCH (08:53)
[2017-01-19] MEDS: VENLAFAXINE HCL ER 75 MG CAP PO SCH (08:54)
[2017-01-19] MEDS: busPIRone HCl 10 MG TAB PO SCH (08:54)
[2017-01-19] MEDS: LORazepam 1 MG TAB PO PRN (08:56)
[2017-01-19] MEDS: LOPERAMIDE 2 MG CAP PO PRN (12:16)
[2017-01-19] MEDS: ACETAMINOPHEN TAB 325 MG TAB PO PRN (12:16)
--- NOTE | 2017-01-19 17:33 | P.PN ---
Progress Note - Text Progress Note Date: 01/19/17 41yo CF admitted on 01/14/17 after presenting with suicidal thoughts Last 24hrs: Upon presentation this morning, patient is pleasant and cooperative. She states that she continues to feel "good" and denies SI at this time. Has been attending groups regularly. Also, compliant with medications and reports no adverse effect. States that she still been experiencing R side pain and some nausea and diarrhea. Medicine has not followed up on KUB as of yet. MSE: Pt appears stated age, well-groomed and ambulating without assistance. Her speech is of normal volume and rate. Pt has good eye contact. Mood is "good" and appears euthymic. Affect is appropriate and broad. No reported hallucinations. She denies SI and HI at this time. Thought process is linear and logical. Memory is grossly intact. Judgment and insight is fair. Assessment: 1. Major depressive disorder, recurrent, moderate 2. Generalized anxiety disorder 3. Alcohol use disorder KUB (01/18/17): 1. unremarkable abdomen 2. phlebolith vs distal R ureteral stone Vital Signs Temp 98.2 F 01/19/17 06:43 Pulse 101 H 01/19/17 06:43 Resp 18 01/19/17 06:43 BP 140/83 01/19/17 06:43 Pulse Ox 99 01/18/17 05:32 Plan: Continue medications as prescribed. Discharge to home today. Pt to follow-up with PCP for further evaluation of R sided pain and GI upset as no further recommendations given by medical team. Encourage patient to follow up with AA meetings and counseling.
== END 2017-01-19 13:47 | disposition home or self-care (01) | DRG 751 ==
LOC: EC 16:29 → 3MHU 19:45
PROVIDERS: ADMIT Psychiatry & Neurology Psychiatry; ATTEND Psychiatry & Neurology Psychiatry
DX: F33.1 Major depressive disorder, recurrent, moderate (principal); R45.851 Suicidal ideations; I10 Essential (primary) hypertension; E78.5 Hyperlipidemia, unspecified; F10.10 Alcohol abuse, uncomplicated; F17.200 Nicotine dependence, unspecified, uncomplicated; F41.0 Panic disorder [episodic paroxysmal anxiety]; F41.1 Generalized anxiety disorder; J45.909 Unspecified asthma, uncomplicated; M47.9 Spondylosis, unspecified; Z79.899 Other long term (current) drug therapy; Z91.5 Personal history of self-harm; Z81.8 Family history of other mental and behavioral disorders
CPT/HCPCS: 74000; 80053; 80306; 81001; 81025; 82075; 84443; 85025; 99285

== ENCOUNTER 2017-10-22 23:07 | Emergency (ER) | payer OTHER ==
[2017-10-22] MEDS ORDERED: KETOROLAC 30 MG/ML 1 ML VIAL IM STA (23:43)
--- NOTE | 2017-10-23 00:01 | ED ---
General Adult HPI - General Chief complaint: Extremity Injury, Lower Stated complaint: leg pain Time Seen by Provider: 10/22/17 23:14 Source: patient, RN notes reviewed Mode of arrival: ambulatory Limitations: no limitations - History of Present Illness Initial comments: 42-year-old female presents to the emergency determine for a chief complaint of bilateral lower extremity pain times one week. Patient states the pain started in the anterior right knee as well as the anterior left knee. Patient states that one day later the pain started in her hip and radiated down to her knees. Patient states she has a history of sciatic pain but this is different from before as it is in both legs. Patient denies any bladder or bowel changes and states she is urinating regularly. Patient denies any saddle anesthesia. Patient states her toes have felt somewhat numb. Patient denies any chance of . Patient denies any history of blood clots. Patient states she has been taking Tylenol for pain as Motrin makes her stomach hurt. Patient has no other complaints at this time including shortness of breath, chest pain, abdominal pain, nausea or vomiting, headache, or visual changes. - Related Data Home Medications Medication Instructions Recorded Confirmed Atorvastatin [Lipitor] 20 mg PO DAILY 08/01/16 01/14/17 Propranolol LA [Inderal LA] 80 mg PO DAILY 08/01/16 01/14/17 ALPRAZolam [Xanax] 0.25 mg PO BID PRN 01/14/17 01/14/17 HYDROcodone/APAP 5-325MG [[place] 1 tab PO BID PRN 01/14/17 01/14/17 5-325] Previous Rx's Medication Instructions Recorded Venlafaxine HCl [Effexor XR] 225 mg PO DAILY #30 tab.er.24 01/19/17 busPIRone HCl [Buspar] 10 mg PO DAILY #30 tab 01/19/17 lamoTRIgine [LaMICtal] 25 mg PO HS #30 tab 01/19/17 predniSONE 50 mg PO DAILY #5 tablet 10/23/17 Allergies Allergy/AdvReac Type Severity Reaction Status Date / Time ibuprofen AdvReac Unknown Verified 10/22/17 23:12 Review of Systems ROS Statement: Those systems with pertinent positive or pertinent negative responses have been documented in the HPI. ROS Other: All systems not noted in ROS Statement are negative. Past Medical History Past Medical History: Asthma, Hyperlipidemia, Hypertension, Skin Disorder History of Any Multi-Drug Resistant Organisms: None Reported Past Surgical History: Heart Catheterization, Tubal Ligation Additional Past Surgical History / Comment(s): heart ablation for PSVT, (L) breast biopsy Past Psychological History: Anxiety, Depression Smoking Status: Current every day smoker Past Alcohol Use History: Occasional Past Drug Use History: None Reported General Exam Limitations: no limitations General appearance: alert, in no apparent distress Respiratory exam: Present: normal lung sounds bilaterally. Absent: respiratory distress, wheezes, rales, rhonchi, stridor Cardiovascular Exam: Present: regular rate, normal rhythm, normal heart sounds. Absent: systolic murmur, diastolic murmur, rubs, gallop, clicks Extremities exam: Present: normal inspection, full ROM (full ROM of the lower extremities bilaterally.), normal capillary refill (Capillary refill less than 2 seconds and pedal pulse 2+ in lower extremities bilaterally.), calf tenderness (Patient has mild calf tenderness consistent with the entire left leg as well as right leg.), other (Sensation intact in the left and right lower extremity). Absent: tenderness, pedal edema, joint swelling Back exam: Present: full ROM, tenderness (tenderness in the lumbar spine). Absent: CVA tenderness (R), CVA tenderness (L) Course Vital Signs 10/22/17 23:10 Temperature 98.9 F Pulse Rate 93 Respiratory 18 Rate Blood Pressure 145/96 O2 Sat by Pulse 99 Oximetry Medical Decision Making - Medical Decision Making 42-year-old female presents to the emergency room for a chief complaint of bilateral lower extremity pain times one week. Patient denies any history of recent injury to the back or knee. Patient has a history of sciatica but states this is somewhat more severe. Patient states the pain started in her knees but is now radiating from the hips down to the bilateral knees. Denies saddle anesthesia or bladder/bowel changes. Lumbar spine x-ray shows a normal lumbar spine. X-ray of the left knee shows a negative left knee exam. No joint effusion. Joint spaces are normal. D-dimer 0.48. Patient is likely experiencing sciatic pain as she has had that in the past. Patient educated to continue taking Tylenol for pain as well as steroids. She is to follow up with primary care in 1-2 days. Patient is to return immediately to the emergency room if she has any worsening symptoms, bladder or bowel changes, or saddle anesthesia. - Lab Data Lab Results 10/23/17 Range/Units 00:27 D-Dimer 0.48 (<0.60) mg/L FEU Disposition Clinical Impression: Sciatic pain Disposition: HOME SELF-CARE Condition: Good Instructions: Lumbar Radiculopathy (ED) Additional Instructions: Please take steroid as directed. Continue to take Tylenol as directed. Follow- up with orthopedics in one to 2 days. Return to the emergency department if you have any worsening symptoms including bladder or bowel changes or numbness in the groin or buttock. Prescriptions: predniSONE 50 mg PO DAILY #5 tablet Is patient prescribed a controlled substance at d/c from ED?: No Referrals: Opal Murillo DO [Primary Care Provider] - 1-2 days Jae Novak MD [STAFF PHYSICIAN] - 1-2 days Time of Disposition: 01:09
--- NOTE | 2017-10-23 00:55 | XR ---
EXAMINATION TYPE: XR knee complete LT DATE OF EXAM: 10/23/2017 COMPARISON: NONE HISTORY: Bilateral knee pain TECHNIQUE: 3 views FINDINGS: I see no fracture nor dislocation. Joint spaces are normal. There is no sign of knee joint effusion. IMPRESSION: Negative left knee exam
--- NOTE | 2017-10-23 00:55 | XR ---
EXAMINATION TYPE: XR lumbar spine 2 or 3V DATE OF EXAM: 10/23/2017 COMPARISON: NONE HISTORY: Low back pain TECHNIQUE: 3 views FINDINGS: Vertebra have normal spacing and alignment. Posterior elements are intact. Sacroiliac joint s appear normal. IMPRESSION: Normal lumbar spine exam.
[2017-10-23 01:41] VITALS: BP 140/80; PULSE 80; RESP 20; TEMP 98
== END 2017-10-23 01:41 | disposition home or self-care (01) ==
LOC: EC 23:07
DX: M54.32 Sciatica, left side (principal); M54.31 Sciatica, right side; E78.5 Hyperlipidemia, unspecified; I10 Essential (primary) hypertension; F17.200 Nicotine dependence, unspecified, uncomplicated; Z79.899 Other long term (current) drug therapy; Z88.6 Allergy status to analgesic agent; Z95.818 Presence of other cardiac implants and grafts
CPT/HCPCS: 36415; 85379; 72100; 73562; 99283; 96372; J1885

== ENCOUNTER → 2017-12-29 | Outpatient (CLI) | payer OTHER ==
--- NOTE | 2017-12-31 12:36 | MR ---
EXAMINATION TYPE: MR bryantine/lani wo con DATE OF EXAM: 12/29/2017 COMPARISON: None HISTORY: Cervicalgia; Lumbago CONTRAST: Performed utilizing 0 mL intravenous Gadavist gadolinium contrast. TECHNIQUE: Multiplanar multiecho imaging on a 3.0 Gerri magnet is performed through the cervical spin e. FINDINGS: The craniovertebral junction is normal. Vertebral body alignment is normal. Cervical spi nal cord maintains normal signal throughout its visualized course. C7-T1: No focal disc herniation or significant disc bulge is evident. No spinal canal stenosis or n eural foraminal stenosis is present. C6-7: Broad-based mild disc bulge has mild anterior thecal sac compression. No spinal canal stenosis or cord contact is evident. Neural foramen are patent.. C5-6: Broad-based disc bulge has moderate anterior thecal sac flattening. No spinal canal stenosis is present. There is some left foraminal narrowing. Right foramen is patent. No cord contact or cord de formity is evident.. C4-5: No focal disc herniation or significant disc bulge is evident. No spinal canal stenosis or lisset ral foraminal stenosis is present. C3-4: No focal disc herniation or significant disc bulge is evident. No spinal canal stenosis or lisset ral foraminal stenosis is present. C2-3: No focal disc herniation or significant disc bulge is evident. No spinal canal stenosis or lisset ral foraminal stenosis is present. IMPRESSIONS: 1. Disc bulging is C5-6 C6-7 with moderate anterior thecal sac compression. No cord contact or spinal canal stenosis is present. EXAMINATION TYPE: MR ángela/lani wo con DATE OF EXAM: 12/29/2017 COMPARISON: None HISTORY: Cervicalgia; Lumbago CONTRAST: 0 mL intravenous Gadavist. TECHNIQUE: Multiplanar, multisequence images of the lumbar spine were acquired. FINDINGS: Cord terminates at the L1 level. L5-S1: Minimal disc bulge has no anterior thecal sac contact No spinal canal stenosis. No foraminal stenosis. Mild facet hypertrophy is present.. L4-L5: There is some right lateral disc bulging into the inferior foramen. No nerve root contact is e vident. There is mild to moderate narrowing of the right foramen. Left foramen is patent. L3-L4: No significant disc bulge or disc herniation. No spinal canal stenosis. No foraminal stenosi s. Mild facet hypertrophy is present without stenosis. L2-L3: No significant disc bulge or disc herniation. No spinal canal stenosis. No foraminal stenosi s. . L1-L2: No significant disc bulge or disc herniation. No spinal canal stenosis. No foraminal stenosi s. . T12-L1: No significant disc bulge or disc herniation. No spinal canal stenosis. No foraminal stenos is. . Vertebral body heights are preserved. Disc heights appear preserved. Disc hydration appears normal. IMPRESSION: 1. Small right paracentral disc bulge causing some mild right foraminal narrowing at L4-5. 2. Minimal disc bulge without thecal sac contact L5-S1.
--- NOTE | 2017-12-31 22:16 | MR ---
EXAMINATION TYPE: MR knee LT wo con DATE OF EXAM: 12/29/2017 COMPARISON: None HISTORY: Knee pain TECHNIQUE: Multiplanar, multisequence imaging of the left knee is performed without IV contrast. FINDINGS: The anterior and posterior cruciate ligaments are intact. There is small knee joint effusion. There a re small horizontal signal in the posterior horn medial meniscus without extension to the articular s urface. The lateral meniscus is intact. The collateral ligaments are intact. There is a 2 x 1 cm area of increased signal in this chondral medial tibial condyle consistent with a bone bruise on the STIR images. The patella is intact. The lateral meniscus appears intact. There is minimal soft tissue swe lling anterior to the patella. IMPRESSION: There is intrasubstance tear of the posterior horn medial meniscus. Small joint effusion. Small bone bruise of the medial tibial condyle. No evidence of ligamentous tear. Mild subcutaneous edema anteri or to the patella.
--- NOTE | 2017-12-31 22:28 | MR ---
EXAMINATION TYPE: MR knee RT wo con DATE OF EXAM: 12/29/2017 COMPARISON: None HISTORY: R knee pain TECHNIQUE: Multiplanar, multisequence imaging of the right knee is performed without IV contrast. FINDINGS: There is knee joint effusion. There is intact anterior and posterior cruciate ligaments. The collater al ligaments are intact. I see no bony destructive process. There is no evidence of a fracture. There is subtle increased signal in the anterior aspect of the medial tibial condyle on the proton density images. The patella is intact. The medial and lateral menisci appear intact. IMPRESSION: There is a [id number] knee joint effusion. No evidence of ligamentous or meniscal tear. Small b one bruise in the anterior aspect of the medial tibial condyle. Mild subcutaneous edema over the ante rior patella.
== END | disposition home or self-care (01) ==
LOC: RADMRIMAIN 11:49
PROVIDERS: ATTEND Psychiatry & Neurology Neurology
DX: M99.73 Connective tissue and disc stenosis of intervertebral foramina of lumbar region (principal); M51.27 Other intervertebral disc displacement, lumbosacral region; M50.222 Other cervical disc displacement at C5-C6 level
CPT/HCPCS: 72141; 72148

== ENCOUNTER 2018-02-23 16:02 | Emergency (ER) | payer OTHER ==
[2018-02-23 16:17] VITALS: TEMP 98.1
[2018-02-23] MEDS ORDERED: diphenhydrAMINE 50 MG/ML 1 ML VIAL IVP STA (17:20)
[2018-02-23] MEDS ORDERED: ORPHENADRINE 30 MG/ML 2 ML VIAL IVP STA (17:20)
[2018-02-23] MEDS ORDERED: SODIUM CHLORIDE 0.9% 1,000 ML IV STA (17:20)
[2018-02-23] MEDS ORDERED: METOCLOPRAMIDE 5 MG/ML 2 ML VIAL IVP STA (17:20)
--- NOTE | 2018-02-23 17:25 | ED ---
Headache HPI - General Chief Complaint: Headache Stated Complaint: headache Time Seen by Provider: 02/23/18 17:07 Source: RN notes reviewed, old records reviewed Mode of arrival: ambulatory Limitations: no limitations - History of Present Illness Initial Comments: Patient's 42-year-old female presents emergency department today with chief complaint of headache for the past 13 days. Patient reports that she has no significant history of headaches or migraines. She reports that it seemed to be progressively worse over the past 2 days. She's been taking Tylenol for the past 2 weeks nonstop. Patient reports she has significant tenderness over bilateral temples. She reports the headache is worse with movement of her head and bright lights. Patient states that she had no falls or head injuries. She works today she started having severe headache while in the shower. She said like her vision was blacking out. Patient states that she has had no fevers or chills. She denies any abdominal pain. But she did have episodes of vomiting. - Related Data Home Medications Medication Instructions Recorded Confirmed Atorvastatin [Lipitor] 10 mg PO DAILY 08/01/16 02/23/18 Propranolol LA [Inderal LA] 80 mg PO DAILY 08/01/16 02/23/18 Acetaminophen [Tylenol Extra 1,000 mg PO Q6H PRN 02/23/18 02/23/18 Strength] busPIRone HCl [Buspar] 10 mg PO BID 02/23/18 02/23/18 Previous Rx's Medication Instructions Recorded Venlafaxine HCl [Effexor XR] 225 mg PO DAILY #30 tab.er.24 01/19/17 lamoTRIgine [LaMICtal] 25 mg PO HS #30 tab 01/19/17 Cyclobenzaprine [Flexeril] 10 mg PO TID #20 tab 02/23/18 Cyclobenzaprine [Flexeril] 10 mg PO TID #20 tab 02/23/18 Allergies Allergy/AdvReac Type Severity Reaction Status Date / Time ibuprofen AdvReac Unknown Verified 02/23/18 17:16 Review of Systems ROS Statement: Those systems with pertinent positive or pertinent negative responses have been documented in the HPI. ROS Other: All systems not noted in ROS Statement are negative. Past Medical History Past Medical History: Asthma, Hyperlipidemia, Hypertension, Skin Disorder Additional Past Medical History / Comment(s): Headaches History of Any Multi-Drug Resistant Organisms: None Reported Past Surgical History: Heart Catheterization, Tubal Ligation Additional Past Surgical History / Comment(s): heart ablation for PSVT, (L) breast biopsy Past Psychological History: Anxiety, Depression Smoking Status: Current every day smoker Past Alcohol Use History: Occasional Past Drug Use History: None Reported General Exam - General Exam Comments Initial Comments: 42-year-old female. Alert and oriented. Patient appears in moderate discomfort. Limitations: no limitations General appearance: alert, in no apparent distress Head exam: Present: atraumatic, normocephalic, normal inspection Eye exam: Present: normal appearance, PERRL, EOMI, other (Patient is photophobic. Holding hands above her eyes.). Absent: scleral icterus, conjunctival injection, periorbital swelling ENT exam: Present: normal exam, normal oropharynx, mucous membranes moist, other (Patient is tender over bilateral temporal areas.) Neck exam: Present: normal inspection. Absent: tenderness, meningismus, lymphadenopathy Respiratory exam: Present: normal lung sounds bilaterally. Absent: respiratory distress, wheezes, rales, rhonchi, stridor Cardiovascular Exam: Present: regular rate, normal rhythm, normal heart sounds. Absent: systolic murmur, diastolic murmur, rubs, gallop, clicks GI/Abdominal exam: Present: soft, normal bowel sounds. Absent: distended, tenderness, guarding, rebound, rigid Extremities exam: Present: normal inspection, full ROM, normal capillary refill. Absent: tenderness, pedal edema, joint swelling, calf tenderness Back exam: Present: normal inspection Psychiatric exam: Present: normal affect, normal mood Skin exam: Present: warm, dry, intact, normal color. Absent: rash Course Vital Signs 02/23/18 02/23/18 02/23/18 16:14 20:19 21:03 Temperature 98.1 F Pulse Rate 83 70 Respiratory 20 16 16 Rate Blood Pressure 136/91 124/95 O2 Sat by Pulse 100 99 Oximetry Medical Decision Making - Lab Data Result diagrams: 02/23/18 17:35 02/23/18 17:35 Lab Results 02/23/18 02/23/18 Range/Units 17:35 17:35 WBC 8.1 (3.8-10.6) k/uL RBC 4.66 (3.80-5.40) m/uL Hgb 15.2 (11.4-16.0) gm/dL Hct 43.8 (34.0-46.0) % MCV 94.0 (80.0-100.0) fL MCH 32.6 (25.0-35.0) pg MCHC 34.7 (31.0-37.0) g/dL RDW 12.7 (11.5-15.5) % Plt Count 240 (150-450) k/uL Neutrophils % 45 % Lymphocytes % 44 % Monocytes % 7 % Eosinophils % 2 % Basophils % 1 % Neutrophils # 3.7 (1.3-7.7) k/uL Lymphocytes # 3.6 (1.0-4.8) k/uL Monocytes # 0.5 (0-1.0) k/uL Eosinophils # 0.2 (0-0.7) k/uL Basophils # 0.1 (0-0.2) k/uL ESR 8 (0-20) mm/hr Sodium 140 (137-145) mmol/L Potassium 4.2 (3.5-5.1) mmol/L Chloride 105 (98-107) mmol/L Carbon Dioxide 28 (22-30) mmol/L Anion Gap 7 mmol/L BUN 7 (7-17) mg/dL Creatinine 0.66 (0.52-1.04) mg/dL Est GFR (CKD-EPI)AfAm >90 (>60 ml/min/1.73 sqM) Est GFR (CKD-EPI)NonAf >90 (>60 ml/min/1.73 sqM) Glucose 90 (74-99) mg/dL Calcium 10.0 (8.4-10.2) mg/dL Total Bilirubin 0.5 (0.2-1.3) mg/dL AST 29 (14-36) U/L ALT 42 (9-52) U/L Alkaline Phosphatase 77 (38-126) U/L C-Reactive Protein <5.0 (<10.0) mg/L Total Protein 7.5 (6.3-8.2) g/dL Albumin 4.3 (3.5-5.0) g/dL Disposition Clinical Impression: Headache, Cervical muscle pain Disposition: HOME SELF-CARE Condition: Good Instructions: Acute Headache (ED) Additional Instructions: Patient advised to follow-up with primary care physician within the next 1-2 days. Take muscle relaxers, and is inflammatory medicine as prescribed. Return to the emergency department if any alarming signs or symptoms occur. Prescriptions: Cyclobenzaprine [Flexeril] 10 mg PO TID #20 tab Cyclobenzaprine [Flexeril] 10 mg PO TID #20 tab Is patient prescribed a controlled substance at d/c from ED?: No Referrals: Opal Murillo DO [Primary Care Provider] - 1-2 days Time of Disposition: 20:48
[2018-02-23 17:56] LABS: Basophils # (A) 0.1 k/uL (0-0.2); Basophils % (A) 1 %; Eosinophils # (A) 0.2 k/uL (0-0.7); Eosinophils % (A) 2 %; HCT 43.8 % (34.0-46.0); HGB 15.2 gm/dL (11.4-16.0); Lymphocytes # (A) 3.6 k/uL (1.0-4.8); Lymphocytes % (A) 44 %; MCH 32.6 pg (25.0-35.0); MCHC 34.7 g/dL (31.0-37.0); Mean Platelet Volume 6.6; Monocytes # (A) 0.5 k/uL (0-1.0); Monocytes % (A) 7 %; Neutrophils # (A) 3.7 k/uL (1.3-7.7); Neutrophils % (A) 45 %; Platelet Count 240 k/uL (150-450); RBC 4.66 m/uL (3.80-5.40); RDW 12.7 % (11.5-15.5); WBC 8.1 k/uL (3.8-10.6)
[2018-02-23] MEDS ORDERED: diphenhydrAMINE 25 MG CAP PO STA (18:02)
[2018-02-23 18:06] LABS: ALT 42 U/L (9-52); AST 29 U/L (14-36); Albumin 4.3 g/dL (3.5-5.0); Alkaline Phosphatase 77 U/L (38-126); Anion Gap 7 mmol/L; Blood Urea Nitrogen 7 mg/dL (7-17); C Reactive Protein <5.0 mg/L (<10.0); Carbon Dioxide 28 mmol/L (22-30); Chloride 105 mmol/L (98-107); Glucose 90 mg/dL (74-99); Potassium 4.2 mmol/L (3.5-5.1); Sodium 140 mmol/L (137-145); Total Bilirubin 0.5 mg/dL (0.2-1.3); Total Protein 7.5 g/dL (6.3-8.2)
[2018-02-23] MEDS ORDERED: ONDANSETRON 4 MG/2 ML VIAL IVP STA (18:08)
[2018-02-23 19:01] LABS: Erythrocyte Sedimentation Rate 8 mm/hr (0-20)
--- NOTE | 2018-02-23 19:32 | CT ---
EXAMINATION TYPE: CT brain wo con DATE OF EXAM: 02/23/2018 COMPARISON: None HISTORY: headache x2 weeks CT DLP: 1065.4 mGycm. Automated Exposure Control for Dose Reduction was Utilized. TECHNIQUE: CT scan of the head is performed without contrast. FINDINGS: There is no acute intracranial hemorrhage, mass effect, or midline shift identified. The ventricles and sulci are within normal limits in size. Rae-white matter differentiation is maintai robyn. The globes are intact and the visualized sinuses are clear. IMPRESSION: No acute intracranial hemorrhage, mass effect, or midline shift is seen.
[2018-02-23] MEDS ORDERED: DIAZEPAM 5 MG/ML 2 ML INJ IVP STA (20:11)
[2018-02-23 20:23] VITALS: BP 124/95; PULSE 70; RESP 16
== END 2018-02-23 21:14 | disposition home or self-care (01) ==
LOC: EC 16:02
DX: M79.18 Myalgia, other site (principal); R51 Headache; R11.10 Vomiting, unspecified; E78.5 Hyperlipidemia, unspecified; I10 Essential (primary) hypertension; I47.1 Supraventricular tachycardia; F41.9 Anxiety disorder, unspecified; F32.9 Major depressive disorder, single episode, unspecified; F17.200 Nicotine dependence, unspecified, uncomplicated; Z98.890 Other specified postprocedural states; Z95.818 Presence of other cardiac implants and grafts; Z79.899 Other long term (current) drug therapy; Z88.6 Allergy status to analgesic agent; Z53.8 Procedure and treatment not carried out for other reasons
CPT/HCPCS: 36415; 80053; 85652; 85025; 86140; 70450; 99284; 96374; 96375 ×2; 96361 ×3; J2360; J3360; J2405

== ENCOUNTER 2018-12-05 16:08 | Emergency (ER) | payer OTHER ==
[2018-12-05] MEDS ORDERED: SODIUM CHLORIDE 0.9% 1,000 ML IV STA (16:40)
[2018-12-05] MEDS ORDERED: MORPHINE SULFATE 4 MG/ML SYRINGE IVP STA (16:41)
--- NOTE | 2018-12-05 17:05 | ED ---
General Adult HPI - General Chief complaint: Fever Stated complaint: post dental extraction pain, infection Time Seen by Provider: 12/05/18 16:20 Source: patient, RN notes reviewed Mode of arrival: ambulatory Limitations: no limitations - History of Present Illness Initial comments: 43-year-old female presents to the emergency department for a chief complaint of fever. Patient states that she has had dental pain for the past week. States that she was started on penicillin a week ago. States that she had an appointment to get her left-sided upper and lower wisdom teeth extracted and this was performed yesterday. States she was started on Flagyl as well. States that she is having considerable pain and swelling in her teeth. States that she can hardly open her mouth. Patient has had fevers at home.Patient has no other complaints at this time including shortness of breath, chest pain, abdominal pain, nausea or vomiting, headache, or visual changes. - Related Data Home Medications Medication Instructions Recorded Confirmed Propranolol LA [Inderal LA] 80 mg PO DAILY 08/01/16 12/05/18 Atorvastatin [Lipitor] 20 mg PO DAILY 12/05/18 12/05/18 Hydrocodone/Acetaminophen [[place] 1 tab PO Q4H PRN 12/05/18 12/05/18 7.5-325] Penicillin V Potassium [Pen Vee K] 500 mg PO QID 12/05/18 12/05/18 metroNIDAZOLE [Flagyl] 500 mg PO QID 12/05/18 12/05/18 Previous Rx's Medication Instructions Recorded Venlafaxine HCl [Effexor XR] 225 mg PO DAILY #30 tab.er.24 01/19/17 Amoxicillin/Potassium Clav 1 tab PO Q12HR #20 tab 12/05/18 [Augmentin 875-125 Tablet] Allergies Allergy/AdvReac Type Severity Reaction Status Date / Time ibuprofen AdvReac ULCERS Verified 12/05/18 16:53 Review of Systems ROS Statement: Those systems with pertinent positive or pertinent negative responses have been documented in the HPI. ROS Other: All systems not noted in ROS Statement are negative. Past Medical History Past Medical History: Asthma, Hyperlipidemia, Hypertension, Skin Disorder Additional Past Medical History / Comment(s): Headaches History of Any Multi-Drug Resistant Organisms: None Reported Past Surgical History: Heart Catheterization, Tubal Ligation Additional Past Surgical History / Comment(s): heart ablation for PSVT, (L) breast biopsy. wisdom teeth Past Psychological History: Anxiety, Depression Smoking Status: Current every day smoker Past Alcohol Use History: Occasional Past Drug Use History: None Reported General Exam Limitations: no limitations General appearance: alert, in no apparent distress Head exam: Present: atraumatic, normocephalic, normal inspection Eye exam: Present: normal appearance, PERRL, EOMI. Absent: scleral icterus, conjunctival injection, periorbital swelling ENT exam: Present: normal exam, mucous membranes moist, TM's normal bilaterally, normal external ear exam, other (Edema present to the left side of the mouth and into the left side of the neck.). Absent: normal oropharynx (Patient is able to open mouth by about 3 cm, no sublingual edema present.) Neck exam: Present: normal inspection, full ROM. Absent: tenderness, meningismus, lymphadenopathy Respiratory exam: Present: normal lung sounds bilaterally. Absent: respiratory distress, wheezes, rales, rhonchi, stridor Cardiovascular Exam: Present: regular rate, normal rhythm, normal heart sounds. Absent: systolic murmur, diastolic murmur, rubs, gallop, clicks Neurological exam: Present: alert Psychiatric exam: Present: normal affect, normal mood Course Vital Signs 12/05/18 12/05/18 16:09 18:36 Temperature 100.7 F H 102.5 F H Pulse Rate 100 87 Respiratory 16 16 Rate Blood Pressure 124/86 153/91 O2 Sat by Pulse 99 99 Oximetry Medical Decision Making - Medical Decision Making 43-year-old female presents to the emergency department for chief complaint of fever. Patient has had dental pain over the past week and started on penicillin about one week ago. Patient followed up with Dr. Bailey who performed a tooth extraction on the upper and lower left wisdom teeth. Patient states that at that time she had significant amount of pus drain that and she was put on Flagyl as well. This was yesterday. States that today she is still having significant pain and swelling and fevers. On evaluation patient does have significant edema noted of the left side of the face and is able to open her mouth about 3 cm. Patient has a fever of 100.7 on presentation which did decrease to 102.5, given Toradol. Leukocytosis of 15.5 secondary to dental infection. CT soft tissue neck with contrast shows left-sided perimandibular 2 cm abscess with lymphadenopathy and soft tissue swelling and edema. Dr. Romero Spoke with Dr. bailey who recommended Augmentin outpatient, Solu-Medrol and follow up closely with them tomorrow morning. Patient will continue to take the Flagyl. She will also be given Tylenol 3 for pain. Patient is agreeable to this plan and agrees to call tomorrow morning to follow-up. She'll return if she has any worsening symptoms. - Lab Data Result diagrams: 12/05/18 17:02 12/05/18 17:02 Lab Results 12/05/18 12/05/18 12/05/18 Range/Units 17:02 17:02 17:02 WBC 15.5 H (3.8-10.6) k/uL RBC 4.50 (3.80-5.40) m/uL Hgb 14.5 (11.4-16.0) gm/dL Hct 42.3 (34.0-46.0) % MCV 94.0 (80.0-100.0) fL MCH 32.3 (25.0-35.0) pg MCHC 34.4 (31.0-37.0) g/dL RDW 12.7 (11.5-15.5) % Plt Count 259 (150-450) k/uL Neutrophils % 89 % Lymphocytes % 2 % Monocytes % 5 % Eosinophils % 1 % Basophils % 2 % Neutrophils # 13.8 H (1.3-7.7) k/uL Lymphocytes # 0.4 L (1.0-4.8) k/uL Monocytes # 0.8 (0-1.0) k/uL Eosinophils # 0.2 (0-0.7) k/uL Basophils # 0.2 (0-0.2) k/uL Sodium 135 L (137-145) mmol/L Potassium 3.3 L (3.5-5.1) mmol/L Chloride 102 (98-107) mmol/L Carbon Dioxide 22 (22-30) mmol/L Anion Gap 11 mmol/L BUN 10 (7-17) mg/dL Creatinine 0.57 (0.52-1.04) mg/dL Est GFR (CKD-EPI)AfAm >90 (>60 ml/min/1.73 sqM) Est GFR (CKD-EPI)NonAf >90 (>60 ml/min/1.73 sqM) Glucose 105 H (74-99) mg/dL Plasma Lactic Acid Trae 1.1 (0.7-2.0) mmol/L Calcium 9.6 (8.4-10.2) mg/dL Total Bilirubin 0.4 (0.2-1.3) mg/dL AST 22 (14-36) U/L ALT 17 (9-52) U/L Alkaline Phosphatase 99 (38-126) U/L Total Protein 7.1 (6.3-8.2) g/dL Albumin 3.9 (3.5-5.0) g/dL Disposition Clinical Impression: Dental abscess Disposition: HOME SELF-CARE Condition: Good Instructions (If sedation given, give patient instructions): Dental Abscess (ED), Fever in Adults (ED) Additional Instructions: Take Augmentin instead of penicillin, continue to take Flagyl. Take Motrin for pain and fever. If pain is severe take Tylenol [address] operate machinery while taking this. Try to keep head elevated. Follow-up with Dr Bailey first thing tomorrow morning. Return here if you have any worsening symptoms. Prescriptions: Amoxicillin/Potassium Clav [Augmentin 875-125 Tablet] 1 tab PO Q12HR #20 tab Is patient prescribed a controlled substance at d/c from ED?: No Referrals: Opal Murillo DO [Primary Care Provider] - 1-2 days Time of Disposition: 19:03
[2018-12-05 17:21] LABS: Basophils # (A) 0.2 k/uL (0-0.2); Basophils % (A) 2 %; Eosinophils # (A) 0.2 k/uL (0-0.7); Eosinophils % (A) 1 %; HCT 42.3 % (34.0-46.0); HGB 14.5 gm/dL (11.4-16.0); Lymphocytes # (A) 0.4 k/uL (1.0-4.8); Lymphocytes % (A) 2 %; MCH 32.3 pg (25.0-35.0); MCHC 34.4 g/dL (31.0-37.0); Mean Platelet Volume 6.6; Monocytes # (A) 0.8 k/uL (0-1.0); Monocytes % (A) 5 %; Neutrophils # (A) 13.8 k/uL (1.3-7.7); Neutrophils % (A) 89 %; Platelet Count 259 k/uL (150-450); RDW 12.7 % (11.5-15.5); WBC 15.5 k/uL (3.8-10.6)
[2018-12-05 17:24] LABS: ALT 17 U/L (9-52); AST 22 U/L (14-36); African American GFR (CKD) >90 (>60 ml/min/1.73 sqM); Albumin 3.9 g/dL (3.5-5.0); Alkaline Phosphatase 99 U/L (38-126); Anion Gap 11 mmol/L; Blood Urea Nitrogen 10 mg/dL (7-17); Calcium 9.6 mg/dL (8.4-10.2); Carbon Dioxide 22 mmol/L (22-30); Chloride 102 mmol/L (98-107); Glucose 105 mg/dL (74-99); Potassium 3.3 mmol/L (3.5-5.1); Sodium 135 mmol/L (137-145); Total Bilirubin 0.4 mg/dL (0.2-1.3); Total Protein 7.1 g/dL (6.3-8.2)
--- NOTE | 2018-12-05 17:43 | CT ---
EXAMINATION TYPE: CT soft tissue neck w con DATE OF EXAM: 12/05/2018 5:30 PM COMPARISON: None HISTORY: Left sided facial and neck swelling for 1 week. Tooth extraction yesterday CT DLP: 260.2 mGycm Automated exposure control for dose reduction was used. CONTRAST: CT scan of the neck is performed following with IV Contrast, patient injected with 100 mL of Isovue 3 00. Axial images are obtained, coronal and sagittal reformatted images are reviewed. FINDINGS: There is normal branching pattern of the great vessels on the aortic arch. Thyroid gland is symmetric . There is normal contrast opacification of carotid arteries and jugular veins. There is mild asymmet fran edema at the left submandibular region. There is a 2 cm low-density mass lateral to the angle of the left hemimandible consistent with an abscess. There is adjacent soft tissue swelling and subcutan eous edema. The mandibular ring appears intact. I see no evidence of a fracture. Temporomandibular raudel ints are intact. There are some asymmetric enlarged left side submandibular lymph nodes that measure up to 1.5 cm. The parotid glands are symmetric. Left submandibular salivary gland is slightly larger than the right. EXAMINATION TYPE: CT soft tissue neck w con DATE OF EXAM: 12/05/2018 COMPARISON: None HISTORY: TECHNIQUE: Multiplanar, multisequence imaging of the right knee is performed without IV contrast. FINDINGS: There is knee joint effusion. There is intact anterior and posterior cruciate ligaments. The collater al ligaments are intact. I see no bony destructive process. There is no evidence of a fracture. There is subtle increased signal in the anterior aspect of the medial tibial condyle on the proton density images. The patella is intact. The medial and lateral menisci appear intact. IMPRESSION: There is a [id number] knee joint effusion. No evidence of ligamentous or meniscal tear. Small b one bruise in the anterior aspect of the medial tibial condyle. Mild subcutaneous edema over the ante rior patella. IMPRESSION: There is left side PeriMandibular abscess or phlegmon as above. Left submandibular lymph adenopathy. Soft tissue swelling and subcutaneous edema.
[2018-12-05] MEDS ORDERED: KETOROLAC 30 MG/ML 1 ML VIAL IVP STA (18:41)
[2018-12-05] MEDS ORDERED: methylPREDNISolone SOD SUCCI 125 MG/2 ML VIAL IV STA (18:41)
[2018-12-05] MEDS ORDERED: AMPICILLIN-SULBACTAM 1.5 GM in SODIUM CHLORIDE 0.9% 50 ML IVPB STA (18:45)
[2018-12-05] MEDS ORDERED: ACET/COD 300 MG/30 MG STARTER PACK 6 TAB BTL PO STA (19:05)
[2018-12-05] MEDS ORDERED: AMOXIC-POT CLAV 875MG STARTER 2 EACH TABLET PO STA (19:05)
[2018-12-05 20:16] VITALS: BP 127/87; PULSE 90; RESP 18; TEMP 100
== END 2018-12-05 20:16 | disposition home or self-care (01) ==
LOC: EC 16:08
DX: K04.7 Periapical abscess without sinus (principal); E78.5 Hyperlipidemia, unspecified; I10 Essential (primary) hypertension; F17.200 Nicotine dependence, unspecified, uncomplicated; Z79.899 Other long term (current) drug therapy; Z88.6 Allergy status to analgesic agent; Z95.5 Presence of coronary angioplasty implant and graft
CPT/HCPCS: 36415; 80053; 83605; 85025; 87040; 70491; 99284; 96365; 96375 ×3; 96361 ×2; J2270; J2930; J1885; J0295; Q9967

== ENCOUNTER → 2020-05-13 | Outpatient (CLI) | payer OTHER ==
--- NOTE | 2020-05-13 10:06 | US ---
EXAMINATION TYPE: US liver DATE OF EXAM: 05/13/2020 COMPARISON: NONE CLINICAL HISTORY: 44-year-old female R10.11 RUQ abd pain. Nausea TECHNIQUE: Multiple sonographic images of the right upper quadrant are obtained. FINDINGS: EXAM MEASUREMENTS: Liver Length: 13.1 cm Gallbladder Wall: 0.2 cm CBD: 0.2 cm Right Kidney: 9.4 x 4.4 x 4.5 cm Pancreas: Visualized portions of the pancreatic body show no gross abnormality. Suboptimal visualiza tion of the pancreatic head and tail due to shadowing from bowel gas. Liver: appears wnl Gallbladder: No abnormal distention, wall thickening, pericholecystic fluid, or shadowing calculi. Evidence for sonographic Kyle's sign: no CBD: appears wnl Right Kidney: 6 mm shadowing echogenic focus at the lower pole. No hydronephrosis. IMPRESSION: 1. A 6 mm nonobstructive calculus lower pole left kidney. 2. No gallstones or biliary ductal dilatation.
== END | disposition home or self-care (01) ==
LOC: RADUSWWP 07:02
PROVIDERS: ATTEND Internal Medicine Gastroenterology
DX: N20.0 Calculus of kidney (principal)
CPT/HCPCS: 76705

== ENCOUNTER 2021-11-30 14:21 | Inpatient (IN) | payer OTHER ==
--- NOTE | 2021-11-30 15:39 | XR ---
EXAMINATION TYPE: XR foot complete LT DATE OF EXAM: 11/30/2021 3:28 PM INDICATION: Patient age:Female; 46 years old; Reason for study: Infection/pain; PHH. COMPARISON: None TECHNIQUE: The left foot was examined in the AP, oblique, and lateral projections. FINDINGS: No evidence of any acute osseous pathology. Fixation plate and hardware involving the first metatarsa l and medial cuneiform and second metatarsal and intermediate cuneiform. No osseous erosions. No evid ence of soft tissue swelling. Joints are preserved. Incidental note is made of symphalangism of the f ifth distal interphalangeal joint. No subcutaneous gas. IMPRESSION: 1. No acute osseous abnormality. No osseous erosions. 2. Post surgical changes.
[2021-11-30] MEDS ORDERED: cefTRIAXone IN SWFI 1,000 MG/10 ML SYRINGE IVP STA (16:31)
[2021-11-30] MEDS ORDERED: SODIUM CHLORIDE 0.9% 500 ML 500 ML IV ONE (16:31)
[2021-11-30] MEDS ORDERED: VANCOMYCIN IV PER PHARMACY 1 EACH MISC MISCELLANE PRN (16:32)
[2021-11-30] MEDS ORDERED: NALOXONE 0.4 MG/ML 1 ML VIAL IV PRN (16:46)
--- NOTE | 2021-11-30 16:51 | ED ---
General Adult HPI - General Chief complaint: Fever Stated complaint: infected wound on lt foot Time Seen by Provider: 11/30/21 15:53 Source: patient, RN notes reviewed, old records reviewed Mode of arrival: ambulatory Limitations: no limitations - History of Present Illness Initial comments: 46-year-old female with left foot infection. Patient is currently being treated with Bactrim and topical antibiotics for an incisional infection after foot surgery. She has developed fever and chills despite oral antibiotics. She has complained of headache. Patient was sent in for evaluation and IV antibiotics. - Related Data Home Medications Medication Instructions Recorded Confirmed Propranolol LA [Inderal LA] 80 mg PO DAILY 08/01/16 12/05/18 Atorvastatin [Lipitor] 20 mg PO DAILY 12/05/18 12/05/18 Hydrocodone/Acetaminophen [[place] 1 tab PO Q4H PRN 12/05/18 12/05/18 7.5-325] Penicillin V Potassium [Pen Vee K] 500 mg PO QID 12/05/18 12/05/18 metroNIDAZOLE [Flagyl] 500 mg PO QID 12/05/18 12/05/18 Previous Rx's Medication Instructions Recorded Venlafaxine HCl [Effexor XR] 225 mg PO DAILY #30 tab.er.24 01/19/17 Amoxicillin/Potassium Clav 1 tab PO Q12HR #20 tab 12/05/18 [Augmentin 875-125 Tablet] Allergies Allergy/AdvReac Type Severity Reaction Status Date / Time ibuprofen AdvReac ULCERS Verified 11/30/21 14:44 Review of Systems ROS Statement: Those systems with pertinent positive or pertinent negative responses have been documented in the HPI. ROS Other: All systems not noted in ROS Statement are negative. Past Medical History Past Medical History: Asthma, Hyperlipidemia, Hypertension, Skin Disorder Additional Past Medical History / Comment(s): Headaches History of Any Multi-Drug Resistant Organisms: None Reported Past Surgical History: Heart Catheterization, Tubal Ligation Additional Past Surgical History / Comment(s): heart ablation for PSVT, (L) breast biopsy. wisdom teeth Past Psychological History: Anxiety, Depression Smoking Status: Current every day smoker Past Alcohol Use History: Occasional Past Drug Use History: None Reported General Exam Limitations: no limitations General appearance: alert, in no apparent distress Head exam: Present: atraumatic, normocephalic Eye exam: Present: normal appearance, PERRL ENT exam: Present: normal exam Neck exam: Present: normal inspection. Absent: tenderness, meningismus Respiratory exam: Present: normal lung sounds bilaterally. Absent: respiratory distress Cardiovascular Exam: Present: normal rhythm, tachycardia GI/Abdominal exam: Present: soft. Absent: distended, tenderness, guarding Extremities exam: Present: other (Open wound to the medial dorsal surface of the left foot with surrounding cellulitis.) Neurological exam: Present: alert, oriented X3 Psychiatric exam: Present: normal affect, normal mood Skin exam: Present: other (Psoriasis) Course Vital Signs 11/30/21 14:42 Temperature 99.6 F Pulse Rate 112 H Respiratory 20 Rate Blood Pressure 108/72 O2 Sat by Pulse 100 Oximetry Medical Decision Making - Medical Decision Making Blood cultures obtained, x-ray obtained, negative for soft tissue gas shows postsurgical changes. Patient started on ceftriaxone and vancomycin. He has a normal white blood cell count, elevated hemoglobin 16, and negative lactic acid. She'll be admitted to Dr. Dahl who is aware. - Lab Data Result diagrams: 11/30/21 16:41 11/30/21 16:41 Lab Results 11/30/21 11/30/21 11/30/21 Range/Units 16:03 16:41 16:41 WBC 4.8 (3.8-10.6) k/uL RBC 4.95 (3.80-5.40) m/uL Hgb 16.4 H (11.4-16.0) gm/dL Hct 48.5 H (34.0-46.0) % MCV 98.1 (80.0-100.0) fL MCH 33.1 (25.0-35.0) pg MCHC 33.8 (31.0-37.0) g/dL RDW 13.5 (11.5-15.5) % Plt Count 139 L (150-450) k/uL MPV 8.1 Sodium 136 L (137-145) mmol/L Potassium 4.0 (3.5-5.1) mmol/L Chloride 106 (98-107) mmol/L Carbon Dioxide 17 L (22-30) mmol/L Anion Gap 13 mmol/L BUN 8 (7-17) mg/dL Creatinine 0.88 (0.52-1.04) mg/dL Est GFR (CKD-EPI)AfAm >90 (>60 ml/min/1.73 sqM) Est GFR (CKD-EPI)NonAf 81 (>60 ml/min/1.73 sqM) Glucose 76 (74-99) mg/dL Calcium 9.0 (8.4-10.2) mg/dL Total Bilirubin 0.2 (0.2-1.3) mg/dL AST 32 (14-36) U/L ALT 19 (4-34) U/L Alkaline Phosphatase 115 (38-126) U/L Total Protein 7.1 (6.3-8.2) g/dL Albumin 4.0 (3.5-5.0) g/dL Coronavirus (PCR) Not Detected (Not Detectd) Disposition Clinical Impression: Cellulitis, Failure of outpatient treatment Disposition: ADMITTED IP TO THIS HOSP Condition: Stable Is patient prescribed a controlled substance at d/c from ED?: No Time of Disposition: 16:51
[2021-11-30] MEDS ORDERED: VANCOMYCIN 1,250 MG in SODIUM CHLORIDE 0.9% 250 ML IVPB ONE (17:00)
[2021-11-30 17:10] LABS: ALT 19 U/L (4-34); AST 32 U/L (14-36); African American GFR (CKD) >90 (>60 ml/min/1.73 sqM); Alkaline Phosphatase 115 U/L (38-126); Anion Gap 13 mmol/L; Blood Urea Nitrogen 8 mg/dL (7-17); Carbon Dioxide 17 mmol/L (22-30); Chloride 106 mmol/L (98-107); Glucose 76 mg/dL (74-99); Non-African American GFR(CKD) 81 (>60 ml/min/1.73 sqM); Sodium 136 mmol/L (137-145); Total Bilirubin 0.2 mg/dL (0.2-1.3); Total Protein 7.1 g/dL (6.3-8.2)
[2021-11-30 17:19] LABS: HCT 48.5 % (34.0-46.0); HGB 16.4 gm/dL (11.4-16.0); MCH 33.1 pg (25.0-35.0); MCHC 33.8 g/dL (31.0-37.0); MCV 98.1 fL (80.0-100.0); Mean Platelet Volume 8.1; Platelet Count 139 k/uL (150-450); RBC 4.95 m/uL (3.80-5.40); RDW 13.5 % (11.5-15.5); WBC 4.8 k/uL (3.8-10.6)
[2021-11-30] MEDS: ACETAMINOPHEN TAB 325 MG TAB PO PRN (17:20)
[2021-11-30] MEDS: SODIUM CHLORIDE 0.9% 1,000 ML IV SCH (17:35)
[2021-11-30 18:05] LABS: Eosinophils # (M) 0.29 k/uL (0-0.7); Lymphocytes # (M) 0.43 k/uL (1.0-4.8); Monocytes # (M) 0.67 k/uL (0-1.0); Neutrophils # (M) 3.41 k/uL (1.3-7.7); Neutrophils % (M) 71 %; Nucleated Red Blood Cells 0 /100 WBC (0-0); Total Cells Counted 100
[2021-11-30] MEDS ORDERED: CALCIUM CARBONATE 500 MG CHEWABLE PO PRN (19:06)
[2021-11-30] MEDS ORDERED: LORazepam 0.5 MG TAB PO PRN (19:06)
[2021-11-30] MEDS ORDERED: ONDANSETRON 4 MG/2 ML VIAL IVP PRN (19:06)
[2021-11-30] MEDS ORDERED: LOPERAMIDE 2 MG CAP PO PRN (19:06)
[2021-11-30] MEDS ORDERED: NICOTINE 7MG/24HR PATCH TRANSDERM SCH (19:15)
[2021-11-30] MEDS: NICOTINE 21MG/24HR PATCH TRANSDERM SCH (19:58)
[2021-11-30] MEDS: ENOXAPARIN 40 MG/0.4 ML SYRINGE SQ SCH (20:00)
--- NOTE | 2021-11-30 20:05 | XR ---
EXAMINATION TYPE: XR chest 2V DATE OF EXAM: 11/30/2021 COMPARISON: None HISTORY: Cellulitis. Chest pain. Smoker TECHNIQUE: 2 views FINDINGS: Heart and mediastinum are normal. Lungs are clear. Diaphragm is normal. Bony thorax is inta ct. IMPRESSION: No cardiopulmonary disease.
[2021-11-30] MEDS ORDERED: PROPRANOLOL 40 MG TAB PO PRN (21:00)
--- NOTE | 2021-11-30 21:27 | CT ---
EXAMINATION TYPE: CT foot LT wo/w con CT DLP: 309.8 mGycm, Automated exposure control for dose reduction was used. DATE OF EXAM: 11/30/2021 7:50 PM COMPARISON: Extremity radiograph 11/30/2021. CLINICAL INDICATION:Female, 46 years old with history of Rule out osteomyelitis/abscess, TECHNIQUE: Axial images were obtained of the left foot. Additional coronal and sagittal reformatted images and soft tissue and bone window were obtained for review. 3-D reconstruction was created on a separate workstation. Contrast used:100ml mL of Isovue 300 with IV Contrast, Oral contrast used: None FINDINGS: There is no evidence of fracture. There is postsurgical changes to the mid foot with fixation hardwar e involving the first metatarsal, medial and middle cuneiforms. Hardware is intact. There is good oss eous fusion of the first metatarsal and medial cuneiform. Visualized osseous structures around the bellamy rgical hardware does not definitively show osseous erosion. There is soft tissue defect over the dors al aspect of the foot just superficial to the fixation hardware of the medial cuneiform. There is no evidence of organizing fluid collection. There is questionable osseous erosion multifocal osteoarthro sis most pronounced at the first metatarsal phalangeal joint. IMPRESSION: Post fixation changes of the foot with hardware intact. No organizing fluid collection. No osseous er osion around the hardware to suggest osteomyelitis.
[2021-11-30] MEDS: VANCOMYCIN 1,250 MG in SODIUM CHLORIDE 0.9% 250 ML IVPB SCH (23:38)
[2021-12-01] MEDS: ACETAMINOPHEN TAB 325 MG TAB PO PRN (05:29)
[2021-12-01 05:40] LABS: African American GFR (CKD) >90 (>60 ml/min/1.73 sqM); Non-African American GFR(CKD) >90 (>60 ml/min/1.73 sqM)
[2021-12-01] MEDS: ENOXAPARIN 40 MG/0.4 ML SYRINGE SQ SCH (10:20)
[2021-12-01] MEDS: DULoxetine HCL 60 MG CAPSULE.DR PO SCH (10:20)
[2021-12-01] MEDS: ATORVASTATIN 20 MG TAB PO SCH (10:20)
[2021-12-01] MEDS: NICOTINE 21MG/24HR PATCH TRANSDERM SCH (10:21)
[2021-12-01] MEDS: PROPRANOLOL 40 MG TAB PO SCH ×2 (10:21→14:58)
[2021-12-01] MEDS: SODIUM CHLORIDE 0.9% 1,000 ML IV SCH ×2 (11:17→19:00)
[2021-12-01] MEDS: VANCOMYCIN 1,250 MG in SODIUM CHLORIDE 0.9% 250 ML IVPB SCH ×3 (11:45→23:37)
--- NOTE | 2021-12-01 13:24 | P.HPIM ---
History of Present Illness H&P Date: 11/30/21 Chief Complaint: Left foot wound This is a pleasant 46-year-old patient of follows with Dr. Opal banuelos. Chronic stable medical conditions include, asthma since childhood, hypertension, hyperlipidemia, anxiety depression, psoriasis. Ulcerative colitis. 4 ulcerative colitis she had seen Dr. Jeff Montes. Did get a course of steroids. Improved. Was having up to 15 BMs a day. Currently down to 5 BMs per day. Decreased appetite. On October 13, underwent removal of the left dorsal foot bunion by a aircraft systems technician. Patient underlying has plates and screws for corrective foot surgery previously. November 13 stitches were removed. For about a week patient started having drainage in the wound. Which got worse. Has had fever and chills. Patient has decreased sensation in that foot. 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 Has 2 children at home Family history: Reviewed, noncontributory to presentation Physical examination: VITAL SIGNS: 100.4, 112, 20, 108/72, 100% room air GENERAL: BMI 24.9, declining bed awake not in distress. EYES: Pupils equal. Conjunctiva normal. HEENT: External appearance of nose and ears normal, oral cavity grossly normal. NECK: JVD not raised; masses not palpable. HEART: First and second heart sounds are normal; no edema. LUNGS: Respiratory rate normal; diminished breath sound. ABDOMEN: Soft, nontender, liver spleen not palpable, no masses palpable. PSYCH: Alert and oriented x3; mood and affect normal. MUSCULOSKELETAL:No Clubbing/cyanosis;muscles-grossly intact. Dorsum of the left foot, open wound. Healing tissue at the base. DERMATOLOGICAL: Multiple scattered psoriatic patches. NEUROLOGICAL: Cranial nerves grossly intact; no facial asymmetry, power and sensation grossly intact. LYMPHATICS: No lymph nodes palpable in the axilla and neck INVESTIGATIONS, reviewed in the clinical context: EKG tracing personally reviewed by me: Normal sinus rhythm Chest x-ray film personally reviewed by me-hyperinflation WBC 4.8 hemoglobin 16.4 platelets 139 potassium 4 BUN 8 creatinine 0.8 date COVID 19: Not detected Assessment and plan: -Left foot wound. Not healing getting worse. Patient had bunions removed on October 13. November 13 stitches were removed. For one week started having increased drainage. Fever and chills. Had received Bactrim as outpatient. Wound Gram stain and culture. Consult ID and orthopedics. Patient has good peripheral pulses. Given that patient underlying hardware may consult underlying osteomyelitis. Computed tomography scan of the foot with and without contrast. ESR/procalcitonin/CRP. IV vancomycin -Sepsis. IV fluids. IV antibiotics. Blood culture -Chronic ulcerative colitis. Has followed with Dr. Jeff Montes in the past. C urrently baseline and 5 BMs a day. Watery. No abdominal pain. 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 Nicotine patch -Hyperlipidemia Lipitor 20 mg a -Essential hypertension Inderal Computed tomography scan of the foot. IV vancomycin. Consult orthopedics and ID. Chest t x-ray. Resume home medication. Wound culture. Care was discussed with the patient. Questions answered. Past Medical History Past Medical History: Asthma, Hyperlipidemia, Hypertension, Skin Disorder Additional Past Medical History / Comment(s): Headaches History of Any Multi-Drug Resistant Organisms: None Reported Past Surgical History: Heart Catheterization, Tubal Ligation Additional Past Surgical History / Comment(s): heart ablation for PSVT, (L) breast biopsy. wisdom teeth Past Psychological History: Anxiety, Depression Smoking Status: Current every day smoker Past Alcohol Use History: Occasional Past Drug Use History: None Reported Medications and Allergies Home Medications Medication Instructions Recorded Confirmed Type Atorvastatin [Lipitor] 20 mg PO DAILY@79912/05/18 11/30/21 History DULoxetine HCL [Cymbalta] 60 mg PO DAILY@79911/30/21 11/30/21 History Ergocalciferol (Vitamin D2) 1,250 mcg PO FR 11/30/21 11/30/21 History [Drisdol (50,000 Iu)] Gentamicin Sulfate [Gentamicin 1 applic TOPICAL BID 11/30/21 11/30/21 History Sulfate 0.1%] Propranolol HCl 80 mg PO DAILY@0800 11/30/21 11/30/21 History Propranolol [Inderal] 40 mg PO DAILY@1400 11/30/21 11/30/21 History Propranolol [Inderal] 40 mg PO HS@2100 PRN 11/30/21 11/30/21 History Sulfamethox-Tmp 800-160Mg [Bactrim 1 tab PO BID 11/30/21 11/30/21 History DS 800-160 mg] Allergies Allergy/AdvReac Type Severity Reaction Status Date / Time ibuprofen AdvReac ULCERS Verified 11/30/21 18:02 Physical Exam Vitals: Vital Signs Temp Pulse Resp BP Pulse Ox 11/30/21 18:21 99.3 F 63 18 113/60 100 11/30/21 17:32 100.4 F H 11/30/21 14:42 99.6 F 112 H 20 108/72 100 Intake and Output 11/30/21 11/30/21 11/30/21 06:59 14:59 22:59 Other: Weight 65.771 kg Results CBC & Chem 7: 11/30/21 16:41 12/01/21 05:07 Labs: Abnormal Lab Results - Last 24 Hours (Table) 11/30/21 11/30/21 Range/Units 16:41 16:41 Hgb 16.4 H (11.4-16.0) gm/dL Hct 48.5 H (34.0-46.0) % Plt Count 139 L (150-450) k/uL Lymphocytes # (Manual) 0.43 L (1.0-4.8) k/uL Sodium 136 L (137-145) mmol/L Carbon Dioxide 17 L (22-30) mmol/L
--- NOTE | 2021-12-01 16:00 | P.PN ---
Progress Note - Text Progress Note Date: 12/01/21 Chief Complaint: Left foot wound This is a pleasant 46-year-old patient of follows with Dr. Opal banuelos. Chronic stable medical conditions include, asthma since childhood, hypertension, hyperlipidemia, anxiety depression, psoriasis. Ulcerative colitis. 4 ulcerative colitis she had seen Dr. Jeff Montes. Did get a course of steroids. Improved. Was having up to 15 BMs a day. Currently down to 5 BMs per day. Decreased appetite. On October 13, underwent removal of the left dorsal foot bunion by a decker operator. Patient underlying has plates and screws for corrective foot surgery previously. November 13 stitches were removed. For about a week patient started having lottie inage in the wound. Which got worse. Has had fever and chills. Patient has decreased sensation in that foot. December 01: Admitted with wound to the left foot. Computed tomography scan of the foot does not show any abscess. Decreased drainage today. On IV vancomycin. Oral intake fair. Orthopedics declined the consult, suggesting if patient needs the same needs to be transferred to [facility] for the same. [Loss Prevention Associate is from that place]. Blood pressure is running low on this morning. Inderal was held Active Medications Acetaminophen (Acetaminophen Tab 325 Mg Tab) 650 mg PO Q6HR PRN PRN Reason: Mild Pain or Fever > 100.5 Last Admin: 12/01/21 05:29 Dose: 650 mg Atorvastatin Calcium (Atorvastatin 20 Mg Tab) 20 mg PO DAILY@0800 [facility] Last Admin: 12/01/21 10:20 Dose: 20 mg Calcium Carbonate/Glycine (Calcium Carbonate 500 Mg Chewable) 1,000 mg PO Q4HR PRN PRN Reason: Dyspepsia Duloxetine HCl (Duloxetine Hcl 60 Mg Capsule.) 60 mg PO DAILY@0800 [facility] Last Admin: 12/01/21 10:20 Dose: 60 mg Enoxaparin Sodium (Enoxaparin 40 Mg/0.4 Ml Syringe) 40 mg SQ DAILY [facility] Last Admin: 12/01/21 10:20 Dose: 40 mg Ergocalciferol (Ergocalciferol 1,250 Mcg (50,000 Iu) Capsule) 1,250 mcg PO FR [facility] Sodium Chloride (Saline 0.9%) 1,000 mls @ 75 mls/hr IV .[id number] [facility] Last Admin: 12/01/21 11:17 Dose: Not Given Vancomycin HCl 1,250 mg/ (Sodium Chloride) 250 mls @ 125 mls/hr IVPB Q8HR [facility] Last Admin: 12/01/21 11:45 Dose: 125 mls/hr Loperamide HCl (Loperamide 2 Mg Cap) 2 mg PO Q2HR PRN PRN Reason: Loose Stool Lorazepam (Lorazepam 0.5 Mg Tab) 0.5 mg PO Q6HR PRN PRN Reason: Anxiety Miscellaneous Information (Vancomycin Trough Due 1 Each Misc) 0 each MISCELLANE DIRECTED ONE Stop: 12/02/21 07:01 Naloxone HCl (Naloxone 0.4 Mg/Ml 1 Ml Vial) 0.2 mg IV Q2M PRN PRN Reason: Opioid Reversal Nicotine (Nicotine 21mg/24hr Patch) 1 patch TRANSDERM DAILY [facility] Last Admin: 12/01/21 10:21 Dose: 1 patch Ondansetron HCl (Ondansetron 4 Mg/2 Ml Vial) 4 mg IVP Q8HR PRN PRN Reason: Nausea And Vomiting Propranolol HCl (Propranolol 40 Mg Tab) 40 mg PO DAILY@1400 [facility] Last Admin: 12/01/21 14:58 Dose: Not Given Propranolol HCl (Propranolol 40 Mg Tab) 40 mg PO HS@2100 PRN PRN Reason: MIGRAINE/HIGH BP Propranolol HCl (Propranolol 40 Mg Tab) 80 mg PO DAILY@0800 [facility] Last Admin: 12/01/21 10:21 Dose: Not Given Past medical history to include: Asthma, hypertension, hyperlipidemia, psoriasic's, heart ablation for PSVT, anxiety depression, ulcerative colitis, psoriasic is Social history: Smokes a pack a day for last 30 years, couple of beers at night, 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 Has 2 children at home Family history: Reviewed, noncontributory to presentation Physical examination: VITAL SIGNS: 98.4, 67, 16, 82/58, 97% room air GENERAL: BMI 24.9, declining bed awake not in distress. EYES: Pupils equal. Conjunctiva normal. HEENT: External appearance of nose and ears normal, oral cavity grossly normal. NECK: JVD not raised; masses not palpable. HEART: First and second heart sounds are normal; no edema. LUNGS: Respiratory rate normal; diminished breath sound. ABDOMEN: Soft, nontender, liver spleen not palpable, no masses palpable. PSYCH: Alert and oriented x3; mood and affect normal. MUSCULOSKELETAL:No Clubbing/cyanosis;muscles-grossly intact. Dorsum of the left foot, open wound. Healing tissue at the base. DERMATOLOGICAL: Multiple scattered psoriatic patches. NEUROLOGICAL: Cranial nerves grossly intact; no facial asymmetry, power and sensation grossly intact. LYMPHATICS: No lymph nodes palpable in the axilla and neck INVESTIGATIONS, reviewed in the clinical context: CRP 3.1 pro-calcitonin 0.09 ESR 12 EKG tracing personally reviewed by me: Normal sinus rhythm Chest x-ray film personally reviewed by me-hyperinflation WBC 4.8 hemoglobin 16.4 platelets 139 potassium 4 BUN 8 creatinine 0.8 date COVID 19: Not detected Assessment and plan: -Left foot wound. Not healing getting worse. Patient had bunions removed on October 13. November 13 stitches were removed. For one week started having increased drainage. Fever and chills. Had received Bactrim as outpatient. Wound Gram stain and culture. . Patient has good peripheral pulses. Computed tomography scan negative for any abscess reported. Orthopedics declined the consult patient to be transferred out if services needed. As the decker operator is from [facility] IV vancomycin. Awaiting input from ID. -Sepsis. IV fluids. IV antibiotics. Blood culture -Chronic ulcerative colitis. Has followed with Dr. Jeff Montes in the past. Currently baseline and 5 BMs a day. Watery. No abdominal pain. 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 Nicotine patch -Hyperlipidemia Lipitor 20 mg a -Hypotension this morning likely from infection. Hold Inderal. -Essential hypertension Inderal IV vancomycin. Follow with ID. Wound cultures pending. Other medications to continue. Discussed with patient. Smoke cessation counseling: This was done with the patient. Nicotine patch .. More than 3 minutes was spent for this
--- NOTE | 2021-12-01 21:30 | P.CONS ---
History of Present Illness - Reason for Consult Consult date: 12/01/21 - History of Present Illness Patient is a 46-year-old female who recently did have a surgery for bunion on the left foot patient mention she did okay initially subsequently the incision on the dorsal aspect of the left foot opened up and did have some drainage patient has been evaluated by her water/wastewater project engineer and the patient be treated with the Bactrim and some topical antibiotic however despite using those in the body patient developed a fever and chills and noticed to have increasing swelling and pain into the left foot dorsum wound area patient was describing the pain to be more of a sharp intensity is almost 6-7 out of 10 no radiation with associated swelling or redness and did have a minimal drainage with the symptom the patient was at the hospital on arrival to the ER patient did have low-grade fever of 100.4 degrees formulae patient did have a normal white count kidney function was normal liver exams are normal CRP was 3.1 COVID testing was negative patient did have local cultures obtained which are currently pending as well as blood cultures are pending patient did have x-ray of the foot no acute bony abnormality also have a CT of the foot last night post fixation changes of the foot with hardware intact no fluid collection and no bony erosion to suggest osteomyelitis patient is currently being treated with the vancomycin infectious he was consulted Kaila for further management of antibiotic therapy Past Medical History Past Medical History: Asthma, Hyperlipidemia, Hypertension, Skin Disorder Additional Past Medical History / Comment(s): Headaches, psorasis; colitis History of Any Multi-Drug Resistant Organisms: None Reported Past Surgical History: Heart Catheterization, Tubal Ligation Additional Past Surgical History / Comment(s): heart ablation for PSVT, (L) breast biopsy; colonoscopy. wisdom teeth; bunion sx october 2021 Past Anesthesia/Blood Transfusion Reactions: No Reported Reaction Past Psychological History: Anxiety, Depression Smoking Status: Current every day smoker Past Alcohol Use History: Occasional Past Drug Use History: None Reported Medications and Allergies Home Medications Medication Instructions Recorded Confirmed Type Atorvastatin [Lipitor] 20 mg PO DAILY@79912/05/18 11/30/21 History DULoxetine HCL [Cymbalta] 60 mg PO DAILY@79911/30/21 11/30/21 History Ergocalciferol (Vitamin D2) 1,250 mcg PO FR 11/30/21 11/30/21 History [Drisdol (50,000 Iu)] Gentamicin Sulfate [Gentamicin 1 applic TOPICAL BID 11/30/21 11/30/21 History Sulfate 0.1%] Propranolol HCl 80 mg PO DAILY@0800 11/30/21 11/30/21 History Propranolol [Inderal] 40 mg PO DAILY@1400 11/30/21 11/30/21 History Propranolol [Inderal] 40 mg PO HS@2100 PRN 11/30/21 11/30/21 History Sulfamethox-Tmp 800-160Mg [Bactrim 1 tab PO BID 11/30/21 11/30/21 History DS 800-160 mg] Allergies Allergy/AdvReac Type Severity Reaction Status Date / Time ibuprofen AdvReac ULCERS Verified 11/30/21 18:02 Physical Exam Vitals: Vital Signs Temp Pulse Pulse Resp BP BP Pulse Ox 12/01/21 08:40 98.4 F 67 16 82/58 97 12/01/21 08:00 16 12/01/21 05:50 100.1 F H 107 H 18 92/50 99 11/30/21 22:54 98.8 F 80 18 107/58 99 11/30/21 18:21 99.3 F 63 18 113/60 100 11/30/21 17:32 100.4 F H 11/30/21 14:42 99.6 F 112 H 20 108/72 100 Intake and Output 11/30/21 12/01/21 12/01/21 22:59 06:59 14:59 Intake Total 560 Balance 560 Intake: Oral 560 Other: Weight 65.771 kg Results CBC & Chem 7: 11/30/21 16:41 12/01/21 05:07 Labs: Abnormal Lab Results - Last 24 Hours (Table) 11/30/21 11/30/21 11/30/21 Range/Units 16:41 16:41 16:41 Hgb 16.4 H (11.4-16.0) gm/dL Hct 48.5 H (34.0-46.0) % Plt Count 139 L (150-450) k/uL Lymphocytes # (Manual) 0.43 L (1.0-4.8) k/uL Sodium 136 L (137-145) mmol/L Carbon Dioxide 17 L (22-30) mmol/L C-Reactive Protein 3.1 H (<1.0) mg/dL Microbiology - Last 24 Hours (Table) 11/30/21 19:13 Gram Stain - Preliminary Foot - Left Wound Culture - Preliminary 11/30/21 19:13 Anaerobic Culture - Preliminary Foot - Left Assessment and Plan Plan: 1patient present to hospital with left foot wound infection and cellulitis with recent history of bunion surgery and dehiscence of the wound with secondary cellulitis failing outpatient Bactrim DS therapy likely from gram-positive skin isa such as strep and MRSA with a CT negative for any bony abnormality or abscess. 2vancomycin pharmacy to dose target trough of 15 while watching kidney function and vancomycin trough closely. 3local wound care with [facility] followed by moist dressing change daily We will follow on clinical condition and cultures to further adjust medication if needed Thank you for this consultation will follow this patient along with you Time with Patient: Greater than 30
[2021-12-02 06:46] LABS: Basophils % (A) 1 %; Eosinophils # (A) 0.3 k/uL (0-0.7); Eosinophils % (A) 8 %; Lymphocytes # (A) 1.5 k/uL (1.0-4.8); Lymphocytes % (A) 39 %; MCH 32.6 pg (25.0-35.0); MCHC 33.3 g/dL (31.0-37.0); MCV 97.9 fL (80.0-100.0); Mean Platelet Volume 8.2; Monocytes # (A) 0.3 k/uL (0-1.0); Monocytes % (A) 8 %; Neutrophils # (A) 1.6 k/uL (1.3-7.7); Neutrophils % (A) 41 %; Platelet Count 102 k/uL (150-450); RBC 3.98 m/uL (3.80-5.40); RDW 13.1 % (11.5-15.5); WBC 3.8 k/uL (3.8-10.6)
[2021-12-02] MEDS ORDERED: VANCOMYCIN TROUGH DUE 1 EACH MISC MISCELLANE ONE (07:00)
[2021-12-02 07:13] LABS: African American GFR (CKD) >90 (>60 ml/min/1.73 sqM); Anion Gap 5 mmol/L; Blood Urea Nitrogen 4 mg/dL (7-17); Calcium 7.7 mg/dL (8.4-10.2); Carbon Dioxide 21 mmol/L (22-30); Chloride 112 mmol/L (98-107); Glucose 78 mg/dL (74-99); Non-African American GFR(CKD) >90 (>60 ml/min/1.73 sqM); Potassium 3.6 mmol/L (3.5-5.1); Sodium 138 mmol/L (137-145)
[2021-12-02] MEDS: PROPRANOLOL 40 MG TAB PO SCH ×2 (07:57→14:35)
[2021-12-02] MEDS: ATORVASTATIN 20 MG TAB PO SCH (08:01)
[2021-12-02] MEDS: DULoxetine HCL 60 MG CAPSULE.DR PO SCH (08:01)
[2021-12-02] MEDS: ENOXAPARIN 40 MG/0.4 ML SYRINGE SQ SCH (08:02)
[2021-12-02] MEDS: VANCOMYCIN 1,250 MG in SODIUM CHLORIDE 0.9% 250 ML IVPB SCH ×2 (08:02→20:30)
[2021-12-02] MEDS: NICOTINE 21MG/24HR PATCH TRANSDERM SCH (08:03)
[2021-12-02] MEDS: SODIUM CHLORIDE 0.9% 1,000 ML IV SCH (16:00)
--- NOTE | 2021-12-02 16:40 | P.PN ---
Progress Note - Text Progress Note Date: 12/02/21 Chief Complaint: Left foot wound This is a pleasant 46-year-old patient of follows with Dr. Opal banuelos. Chronic stable medical conditions include, asthma since childhood, hypertension, hyperlipidemia, anxiety depression, psoriasis. Ulcerative colitis. 4 ulcerative colitis she had seen Dr. Jeff Montes. Did get a course of steroids. Improved. Was having up to 15 BMs a day. Currently down to 5 BMs per day. Decreased appetite. On October 13, underwent removal of the left dorsal foot bunion by a transformer shop supervisor. Patient underlying has plates and screws for corrective foot surgery previously. November 13 stitches were removed. For about a week patient started having lottie inage in the wound. Which got worse. Has had fever and chills. Patient has decreased sensation in that foot. December 01: Admitted with wound to the left foot. Computed tomography scan of the foot does not show any abscess. Decreased drainage today. On IV vancomycin. Oral intake fair. Orthopedics declined the consult, suggesting if patient needs the same needs to be transferred to [facility] for the same. [Granite Installer is from that place]. Blood pressure is running low on this morning. Inderal was held December 02: Slight chills. Cultures pending. IV vancomycin. Been followed by ID Active Medications Acetaminophen (Acetaminophen Tab 325 Mg Tab) 650 mg PO Q6HR PRN PRN Reason: Mild Pain or Fever > 100.5 Last Admin: 12/01/21 05:29 Dose: 650 mg Atorvastatin Calcium (Atorvastatin 20 Mg Tab) 20 mg PO DAILY@0800 REPLACED BY [facility] Last Admin: 12/02/21 08:01 Dose: 20 mg Calcium Carbonate/Glycine (Calcium Carbonate 500 Mg Chewable) 1,000 mg PO Q4HR PRN PRN Reason: Dyspepsia Duloxetine HCl (Duloxetine Hcl 60 Mg Capsule.) 60 mg PO DAILY@0800 REPLACED [facility] Last Admin: 12/02/21 08:01 Dose: 60 mg Enoxaparin Sodium (Enoxaparin 40 Mg/0.4 Ml Syringe) 40 mg SQ DAILY REPLACED BY [facility] Last Admin: 12/02/21 08:02 Dose: 40 mg Ergocalciferol (Ergocalciferol 1,250 Mcg (50,000 Iu) Capsule) 1,250 mcg [facility] Sodium Chloride (Saline 0.9%) 1,000 mls @ 75 mls/hr IV .[id number] REPLACED BY [facility] Last Admin: 12/02/21 16:00 Dose: 75 mls/hr Vancomycin HCl 1,250 mg/ (Sodium Chloride) 250 mls @ 125 mls/hr IVPB Q12HR REPLACED BY [facility] Loperamide HCl (Loperamide 2 Mg Cap) 2 mg PO Q2HR PRN PRN Reason: Loose Stool Lorazepam (Lorazepam 0.5 Mg Tab) 0.5 mg PO Q6HR PRN PRN Reason: Anxiety Naloxone HCl (Naloxone 0.4 Mg/Ml 1 Ml Vial) 0.2 mg IV Q2M PRN PRN Reason: Opioid Reversal Nicotine (Nicotine 21mg/24hr Patch) 1 patch TRANSDERM DAILY [facility]PLACED [facility] Last Admin: 12/02/21 08:03 Dose: 1 patch Ondansetron HCl (Ondansetron 4 Mg/2 Ml Vial) 4 mg IVP Q8HR PRN PRN Reason: Nausea And Vomiting Propranolol HCl (Propranolol 40 Mg Tab) 40 mg PO DAILY@1400 [facility]PLACED [facility] Last Admin: 12/02/21 14:35 Dose: Not Given Propranolol HCl (Propranolol 40 Mg Tab) 40 mg PO HS@2100 PRN PRN Reason: MIGRAINE/HIGH BP Propranolol HCl (Propranolol 40 Mg Tab) 80 mg PO DAILY@0800 REPLACED BY [facility] Last Admin: 12/02/21 07:57 Dose: Not Given Past medical history to include: Asthma, hypertension, hyperlipidemia, psoriasic's, heart ablation for PSVT, anxiety depression, ulcerative colitis, psoriasic is Social history: Smokes a pack a day for last 30 years, couple of beers at night, 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 Conjunctiva normal. HEENT: External appearance of nose and ears normal, oral cavity grossly normal. NECK: JVD not raised; masses not palpable. HEART: First and second heart sounds are normal; no edema. LUNGS: Respiratory rate normal; diminished breath sound. ABDOMEN: Soft, nontender, liver spleen not palpable, no masses palpable. PSYCH: Alert and oriented x3; mood and affect normal. MUSCULOSKELETAL:No Clubbing/cyanosis;muscles-grossly intact. Dorsum of the left foot, open wound. Healing tissue at the base. DERMATOLOGICAL: Multiple scattered psoriatic patches. INVESTIGATIONS, reviewed in the clinical context: December 02: WBC 3.8 hemoglobin 13 potassium 3.6 creatinine 0.74 CRP 3.1 pro-calcitonin 0.09 ESR 12 EKG tracing personally reviewed by me: Normal sinus rhythm Chest x-ray film personally reviewed by me-hyperinflation WBC 4.8 hemoglobin 16.4 platelets 139 potassium 4 BUN 8 creatinine 0.8 date COVID 19: Not detected Assessment and plan: -Left foot wound. Not healing getting worse. Patient had bunions removed on October 13. November 13 stitches were removed. For one week started having increased drainage. Fever and chills. Had received Bactrim as outpatient. Wound Gram stain and culture. . Patient has good peripheral pulses. Computed tomography scan negative for any abscess reported. Orthopedics declined the consult patient to be transferred out if services needed. As the transformer shop supervisor is from [facility] IV vancomycin. Topical med-honey. Follow with ID -Sepsis.: Better IV fluids. IV antibiotics. Blood culture -Chronic ulcerative colitis. Has followed with Dr. Jeff Montes in the past. Currently baseline and 5 BMs a day. Watery. No abdominal pain. Discussed with patient. Follow up with Dr. 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 Nicotine patch -Hyperlipidemia Lipitor 20 mg a -Hypotension this morning likely from infection. Hold Inderal. -Essential hypertension Inderal IV vancomycin. Follow with ID. culture pending. Topical med honey. Other medications to continue.
[2021-12-03] MEDS: SODIUM CHLORIDE 0.9% 1,000 ML IV SCH ×2 (04:48→12:46)
[2021-12-03 06:54] LABS: African American GFR (CKD) >90 (>60 ml/min/1.73 sqM); Anion Gap 4 mmol/L; Blood Urea Nitrogen 4 mg/dL (7-17); Calcium 7.9 mg/dL (8.4-10.2); Carbon Dioxide 23 mmol/L (22-30); Chloride 112 mmol/L (98-107); Glucose 77 mg/dL (74-99); Non-African American GFR(CKD) >90 (>60 ml/min/1.73 sqM); Potassium 3.5 mmol/L (3.5-5.1); Sodium 139 mmol/L (137-145)
[2021-12-03] MEDS: ENOXAPARIN 40 MG/0.4 ML SYRINGE SQ SCH (08:13)
[2021-12-03] MEDS: NICOTINE 21MG/24HR PATCH TRANSDERM SCH (08:13)
[2021-12-03] MEDS: DULoxetine HCL 60 MG CAPSULE.DR PO SCH (08:14)
[2021-12-03] MEDS: ATORVASTATIN 20 MG TAB PO SCH (08:15)
[2021-12-03] MEDS: PROPRANOLOL 40 MG TAB PO SCH (08:15)
[2021-12-03] MEDS: VANCOMYCIN 1,250 MG in SODIUM CHLORIDE 0.9% 250 ML IVPB SCH (08:16)
--- NOTE | 2021-12-03 08:30 | P.PN ---
Subjective Progress Note Date: 12/02/21 Principal diagnosis: Left foot wound and cellulitis Patient is a 46-year-old female with recent left foot bunion surgery subsequently dehiscence of the wound on the dorsum aspect of the left foot and cellulitis failing outpatient oral Bactrim DS therapy. On today's evaluation that is 12/02/2021, the patient denies having any fever or any chills patient left foot pain and discomfort has decreased in intensity, no further drainage no chest pain shortness of breath or cough no abdominal pain no diarrhea Objective - Vital Signs Vital signs: Vital Signs Temp 98.4 F 12/02/21 04:50 Pulse 68 12/02/21 07:56 Resp 15 12/02/21 04:50 BP 99/66 12/02/21 07:56 Pulse Ox 99 12/02/21 04:50 FiO2 Intake & Output 12/01/21 12/02/21 12/02/21 18:59 06:59 18:59 Intake Total 500 Balance 500 Intake: Oral 500 Other: # Voids 2 1 - Exam GENERAL DESCRIPTION: Middle-aged female lying in bed in no distress RESPIRATORY SYSTEM: Unlabored breathing , decreased breath sounds at bases HEART: S1 S2 regular rate and rhythm , ABDOMEN: Soft , no tenderness EXTREMITIES: Left foot wound base looks clean surrounding redness has improved - Labs CBC & Chem 7: 12/02/21 06:20 12/03/21 05:56 Labs: Abnormal Lab Results - Last 24 Hours (Table) 12/02/21 12/02/21 Range/Units 06:20 06:20 Plt Count 102 L (150-450) k/uL Chloride 112 H (98-107) mmol/L Carbon Dioxide 21 L (22-30) mmol/L BUN 4 L (7-17) mg/dL Calcium 7.7 L (8.4-10.2) mg/dL Microbiology - Last 24 Hours (Table) 11/30/21 16:41 Blood Culture - Preliminary Blood No Growth after 24 hours 11/30/21 16:25 Blood Culture - Preliminary Blood No Growth after 24 hours 11/30/21 19:13 Gram Stain - Preliminary Foot - Left Wound Culture - Preliminary Assessment and Plan (1) Cellulitis Current Visit: Yes Status: Acute Code(s): L03.90 - CELLULITIS, UNSPECIFIED SNOMED Code(s): 352930824 Plan: 1patient present to hospital with left foot wound infection and cellulitis with recent history of bunion surgery and dehiscence of the wound with secondary c ellulitis failing outpatient Bactrim DS therapy likely from gram-positive skin isa such as strep and MRSA with a CT negative for any bony abnormality or abscess. 2patient to continue with vancomycin pharmacy to dose target trough of 15 while watching kidney function and vancomycin trough closely. Discharge antibiotics on the basis of final culture 3local wound care with Med[facility] followed by moist dressing change daily Time with Patient: Less than 30
[2021-12-03] MEDS ORDERED: ERGOCALCIFEROL 1,250 MCG (50,000 IU) CAPSULE PO SCH (09:00)
[2021-12-03 13:32] VITALS: BMI 24.9
[2021-12-03 13:38] VITALS: BP 107/69; PULSE 77; RESP 16; TEMP 98.1
--- NOTE | 2021-12-03 18:44 | P.DS ---
Providers Date of admission: 11/30/21 16:47 Expected date of discharge: 12/03/21 Attending physician: Abrahan Dahl Consults: 12/01/21 11:06 Consult Physician Routine Consulting Provider: Anjali Rivero Consult Reason/Comments: foot wound Do you want consulting provider notified?: Yes Primary care physician: Opal Banuelos [place] [facility] Course: Chief Complaint: Left foot wound This is a pleasant 46-year-old patient of follows with Dr. Opal banuelos. Chronic stable medical conditions include, asthma since childhood, hypertension, hyperlipidemia, anxiety depression, psoriasis. Ulcerative colitis. 4 ulcerative colitis she had seen Dr. Jeff Montes. Did get a course of steroids. Improved. Was having up to 15 BMs a day. Currently down to 5 BMs per day. Decreased appetite. On October 13, underwent removal of the left dorsal foot bunion by a tariff clerk. Patient underlying has plates and screws for corrective foot surgery previously. November 13 stitches were removed. For about a week patient started having drainage in the wound. Which got worse. Has had fever and chills. Patient has decreased sensation in that foot. December 01: Admitted with wound to the left foot. Computed tomography scan of the foot does not show any abscess. Decreased drainage today. On IV vancomycin. Oral intake fair. Orthopedics declined the consult, suggesting if patient needs the same needs to be transferred to [facility] for the same. [[facility] [employer]ment Manager is from that place]. Blood pressure is running low on this morning. Inderal was held December 02: Slight chills. Cultures pending. IV vancomycin. Been followed by ID December 03: Wound culture is negative. Feeling well. Communicate with ID. Local wound care. Complete 10 days of Keflex. Follow-up with ID and her tariff clerk. Questions answered Discussion and discharge planning more than 35 minutes Past medical history to include: Asthma, hypertension, hyperlipidemia, psoriasic's, heart ablation for PSVT, anxiety depression, ulcerative colitis, psoriasic is Social history: Smokes a pack a day for last 30 years, couple of beers at night, is a associated director for a [employer]. Has 2 children at home Family history: Reviewed, noncontributory to presentation Physical examination: VITAL SIGNS: 98.1, 77, 16, 10 7 x 69, 99% room air GENERAL: Comfortable EYES: Pupils equal. Conjunctiva normal. HEENT: External appearance of nose and ears normal, oral cavity grossly normal. NECK: JVD not raised; masses not palpable. HEART: First and second heart sounds are normal; no edema. LUNGS: Respiratory rate normal; diminished breath sound. ABDOMEN: Soft, nontender, liver spleen not palpable, no masses palpable. PSYCH: Alert and oriented x3; mood and affect normal. MUSCULOSKELETAL:No Clubbing/cyanosis;muscles-grossly intact. Dorsum of the left foot, open wound. Healing tissue at the base. DERMATOLOGICAL: Multiple scattered psoriatic patches. INVESTIGATIONS, reviewed in the clinical context: Wound and blood culture both negative December 03: Potassium 3.5 creatinine 0.74 December 02: WBC 3.8 hemoglobin 13 potassium 3.6 creatinine 0.74 CRP 3.1 pro-calcitonin 0.09 ESR 12 EKG tracing personally reviewed by me: Normal sinus rhythm Chest x-ray film personally reviewed by me-hyperinflation WBC 4.8 hemoglobin 16.4 platelets 139 potassium 4 BUN 8 creatinine 0.8 date COVID 19: Not detected Assessment and plan: -Left foot wound. Not healing getting worse. Patient had bunions removed on October 13. November 13 stitches were removed. For one week started having increase d drainage. Fever and chills. Had received Bactrim as outpatient. Wound Gram stain and culture. . Patient has good peripheral pulses. Computed tomography scan negative for any abscess reported. Orthopedics declined the consult patient to be transferred out if services needed. IV vancomycin. Topical med-honey. Patient to complete 10 days of Keflex. -Sepsis.: Better IV fluids. IV antibiotics. Blood culture negative -Chronic ulcerative colitis. Has followed with Dr. Jeff Montes in the past. Currently baseline and 5 BMs a day. Watery. No abdominal pain. Discussed with patient. Follow up with Dr. 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 Overlap syndrome. Albuterol as needed -Chronic nicotine dependence, cigarette smoker Patient counseled. Nicotine patch -Hyperlipidemia Lipitor 20 mg a -Essential hypertension Inderal Disposition: Home Patient Condition at Discharge: Stable Plan - Discharge Summary Discharge Rx Participant: Yes New Discharge Prescriptions: New Nicotine 21Mg/24Hr Patch [Habitrol] 1 patch TRANSDERM DAILY #14 patch Acetaminophen Tab [Tylenol] 650 mg PO Q6HR PRN tab PRN Reason: Mild Pain Or Fever > 100.5 Cephalexin [Keflex] 500 mg PO Q6HR #40 cap Continue Atorvastatin [Lipitor] 20 mg PO DAILY@0800 Propranolol [Inderal] 40 mg PO DAILY@1400 DULoxetine HCL [Cymbalta] 60 mg PO DAILY@0800 Ergocalciferol (Vitamin D2) [Drisdol (50,000 Iu)] 1,250 mcg PO FR Propranolol [Inderal] 40 mg PO HS@2100 PRN PRN Reason: MIGRAINE/HIGH BP Propranolol HCl 80 mg PO DAILY@0800 Discontinued Gentamicin Sulfate [Gentamicin Sulfate 0.1%] 1 applic TOPICAL BID Sulfamethox-Tmp 800-160Mg [Bactrim DS 800-160 mg] 1 tab PO BID Discharge Medication List Atorvastatin [Lipitor] 20 mg PO DAILY@0800 12/05/18 [History] DULoxetine HCL [Cymbalta] 60 mg PO DAILY@0800 11/30/21 [History] Ergocalciferol (Vitamin D2) [Drisdol (50,000 Iu)] 1,250 mcg PO FR 11/30/21 [History] Propranolol HCl 80 mg PO DAILY@0800 11/30/21 [History] Propranolol [Inderal] 40 mg PO DAILY@1400 11/30/21 [History] Propranolol [Inderal] 40 mg PO HS@2100 PRN 11/30/21 [History] Acetaminophen Tab [Tylenol] 650 mg PO Q6HR PRN tab 12/03/21 [Rx] Cephalexin [Keflex] 500 mg PO Q6HR #40 cap 12/03/21 [Rx] Nicotine 21Mg/24Hr Patch [Habitrol] 1 patch TRANSDERM DAILY #14 patch 12/03/21 [Rx] Follow up Appointment(s)/Referral(s): Chyna Montes MD [STAFF PHYSICIAN] - 2 Weeks (Please make follow up appointment for your ulcerative colitis - the office was closed at time of discharge.) Opal Banuelos DO [Primary Care Provider] - 12/10/21 11:15 am Anjali Rivero MD [STAFF PHYSICIAN] - 1 Week (The office is closed at time of discharge - please call and make follow up appointment. Call [phone] to follow up with Dr. Rivero in the wound care center by [facility]) Patient Instructions/Handouts: Cephalexin (By mouth), Nicotine (Absorbed through the skin), Cellulitis (GEN) Activity/Diet/Wound Care/Special Instructions: Local wound care to the left foot wound with Medi-honey gel followed by moist dressing, change daily - follow-up with Dr. Rivero in the wound care center in 1 week, call [phone] to make an appointment Discharge Disposition: HOME SELF-CARE
[2021-12-04] MEDS ORDERED: VANCOMYCIN TROUGH DUE 1 EACH MISC MISCELLANE ONE (08:00)
== END 2021-12-03 14:25 | disposition home or self-care (01) | DRG 872 ==
LOC: EC 14:21 → 4SSUR 16:47 → 5NMEDONC 20:26
PROVIDERS: ADMIT Hospitalist; ATTEND Hospitalist
DX: A41.9 Sepsis, unspecified organism (principal); K51.90 Ulcerative colitis, unspecified, without complications; L03.116 Cellulitis of left lower limb; M35.1 Other overlap syndromes; G43.909 Migraine, unspecified, not intractable, without status migrainosus; Z20.822 Contact with and (suspected) exposure to COVID-19; F17.210 Nicotine dependence, cigarettes, uncomplicated; J45.909 Unspecified asthma, uncomplicated; E78.5 Hyperlipidemia, unspecified; I10 Essential (primary) hypertension; F32.A Depression, unspecified; F41.9 Anxiety disorder, unspecified; J44.9 Chronic obstructive pulmonary disease, unspecified; L40.9 Psoriasis, unspecified; Z71.6 Tobacco abuse counseling; Z79.899 Other long term (current) drug therapy; Z98.51 Tubal ligation status
CPT/HCPCS: 36415; 71046; 80048; 80053; 80202; 82565; 83605; 84145; 85025; 85652; 86140; 87040; 87070; 87075; 87205; 87635; 93005; 96365; 96366; 96372; 96375; 99284

== ENCOUNTER → 2022-11-01 | Outpatient (CLI) | payer OTHER ==
[2022-11-01 08:27] LABS: INR 0.9 (<1.2); Partial Thromboplastin Time 22.8 sec (22.0-30.0); Prothrombin Time 9.5 sec (9.0-12.0)
[2022-11-01 14:17] LABS: Basophils # (A) 0.05 X 10*3/uL (0.00-0.10); Basophils % (A) 0.5 %; Eosinophils % (A) 1.1 %; HCT 43.7 % (37.2-46.3); HGB 15.1 d/dL (12.0-15.0); Lymphocytes # (A) 2.57 X 10*3/uL (0.90-5.00); Lymphocytes % (A) 27.8 %; MCH 33.3 pg (27.0-32.0); MCHC 34.6 d/dL (32.0-37.0); MCV 96.3 FL (80.0-97.0); Mean Platelet Volume 9.3 FL (9.5-12.2); Monocytes # (A) 0.99 X 10*3/uL (0.20-1.00); Monocytes % (A) 10.7 %; NRBC Per 100 WBC 0 X 10*3/uL (0.00-0.01); Neutrophils # (A) 5.48 X 10*3/uL (1.80-7.70); Neutrophils % (A) 59.5 %; Platelet Count 254 X 10*3/uL (140-440); RBC 4.54 X 10*6/uL (4.10-5.20); RDW 12.6 % (11.5-14.5); WBC 9.23 X 10*3/uL (4.50-10.00)
[2022-11-01 14:56] LABS: % Iron Saturation 37.44 (12.00-45.00); ALT 21 U/L (8-44); AST 22 U/L (13-35); Albumin 4.1 d/dL (3.8-4.9); Albumin/Globulin Ratio 1.64 Ratio (1.60-3.17); Alkaline Phosphatase 90 U/L (41-126); BUN/Creat Ratio 12.75 Ratio (12.00-20.00); Blood Urea Nitrogen 10.2 mg/dL (9.0-27.0); C Reactive Protein <0.30 mg/dL (0.00-0.80); Calcium 9.4 mg/dL (8.7-10.3); Carbon Dioxide 25.5 mmol/L (21.6-31.8); Chloride 104 mmol/L (96-109); GGT 19 U/L (0-38); Globulin 2.5 d/dL (1.6-3.3); Glucose 91 mg/dL (70-110); Iron 164 UG/DL (50-170); Potassium 4.3 mmol/L (3.5-5.5); Sodium 140 mmol/L (135-145); Total Bilirubin 0.6 mg/dL (0.3-1.2); Total Iron Binding Capacity 438 UG/DL (228-460); Total Protein 6.6 d/dL (6.2-8.2)
[2022-11-07 12:58] LABS: Streptolysin O Ab(ASO) 28
== END | disposition home or self-care (01) ==
LOC: LABWHC1 07:35
PROVIDERS: ATTEND Family Medicine
DX: F10.10 Alcohol abuse, uncomplicated (principal); R21 Rash and other nonspecific skin eruption; R23.3 Spontaneous ecchymoses
CPT/HCPCS: 36415; 80053; 82607; 82746; 82977; 83540; 83550; 84425; 85025; 85610; 85652; 85730; 86038; 86060; 86140

== ENCOUNTER → 2022-11-14 | Outpatient (CLI) | payer OTHER | END | disposition home or self-care (01) | LOC: LABWHC1 07:45 | PROVIDERS: ATTEND Family Medicine | DX: R23.3 Spontaneous ecchymoses (principal); F10.10 Alcohol abuse, uncomplicated; R21 Rash and other nonspecific skin eruption | CPT/HCPCS: 36415; 85652 ==

== ENCOUNTER 2023-09-05 23:27 | Observation (INO) | payer OTHER ==
[2023-09-06] MEDS: SODIUM CHLORIDE 0.9% 1,000 ML IV STA (00:34)
[2023-09-06] MEDS: KETOROLAC 15 MG/ML 1 ML VIAL IVP STA (00:35)
--- NOTE | 2023-09-06 00:35 | US ---
EXAMINATION TYPE: US gallbladder DATE OF EXAM: 09/06/2023 COMPARISON: 05/13/2020 ultrasound liver CLINICAL INDICATION: Female, 47 years old with history of ruq pain; Patient states RUQ pain for a few weeks. Says that she has not been able to eat much. States that she had a few beers earlier. TECHNIQUE: Multiple sonographic images of the right upper quadrant are obtained. FINDINGS: EXAM MEASUREMENTS: Liver Length: 15.2 cm Gallbladder Wall: 0.3 cm CBD: 0.4 cm Right Kidney: 7.7 x 4.2 x 5.0 cm CARDIOLOGY MANAGER NOTES:Limited examination due to overlying bowel gas Pancreas: Obscured by bowel gas Liver: Visualized portions appear heterogeneous. Posterior aspect obscured by gas Gallbladder: Wall measures upper limits of normal. Trace amount of pericholecystic fluid seen. No sh adowing mobile foci seen. Evidence for sonographic Kyle's sign: No CBD: wnl as best visualized today Right Kidney: Medial aspect obscured by bowel gas. Visualized portions appear WNL. Intercostal views used. IMPRESSION: Suboptimal study. No shadowing mobile gallstones are identified.
[2023-09-06] MEDS: HYDROmorphone 1 MG/ML 1 ML SYRINGE IVP STA (00:38)
[2023-09-06 00:56] LABS: ALT 285 U/L (4-34); AST 197 U/L (14-36); African American GFR (CKD) >90 (>60 ml/min/1.73 sqM); Albumin 3.4 g/dL (3.5-5.0); Alkaline Phosphatase 388 U/L (38-126); Amylase 66 U/L (30-110); Anion Gap 9 mmol/L; Blood Urea Nitrogen 6 mg/dL (7-17); Calcium 9.1 mg/dL (8.4-10.2); Carbon Dioxide 20 mmol/L (22-30); Chloride 106 mmol/L (98-107); Glucose 80 mg/dL (74-99); Lipase 88 U/L (23-300); Non-African American GFR(CKD) >90 (>60 ml/min/1.73 sqM); Potassium 3.2 mmol/L (3.5-5.1); Sodium 135 mmol/L (137-145); Total Protein 6.3 g/dL (6.3-8.2)
[2023-09-06 01:07] LABS: Basophils # (A) 0.1 k/uL (0-0.2); Basophils % (A) 1 %; Eosinophils % (A) 11 %; Lymphocytes # (A) 2.5 k/uL (1.0-4.8); Lymphocytes % (A) 27 %; MCH 32.2 pg (25.0-35.0); MCHC 31.9 g/dL (31.0-37.0); MCV 101.1 fL (80.0-100.0); Macrocytosis Slight; Mean Platelet Volume 8.4; Monocytes # (A) 0.9 k/uL (0-1.0); Monocytes % (A) 9 %; Neutrophils # (A) 4.7 k/uL (1.3-7.7); Neutrophils % (A) 50 %; Platelet Count 240 k/uL (150-450); RBC 4.65 m/uL (3.80-5.40); RDW 13.4 % (11.5-15.5); WBC 9.4 k/uL (3.8-10.6)
--- NOTE | 2023-09-06 02:15 | ED ---
Abdominal Pain HPI - General Chief Complaint: Abdominal Pain Stated Complaint: Abd pain Time Seen by Provider: 09/05/23 23:43 Source: patient, RN notes reviewed Mode of arrival: ambulatory Limitations: no limitations - History of Present Illness Initial Comments: 47-year-old female presenting to the ED with complaints of abdominal pain. Patient reports for the past 2 weeks has had right upper quadrant abdominal pain. States that it is constantly dull in nature however intermittently becomes sharp. Over the past few days reports that pain has frequently been becoming more sharp and today started become nauseous and reports pain has worsened. No fever or chills. No chest pain or shortness of breath. Denies changes in urinary habits. No other complaints at this time. - Related Data Home Medications Medication Instructions Recorded Confirmed Atorvastatin [Lipitor] 20 mg PO DAILY@0812/05/18 11/30/21 DULoxetine HCL [Cymbalta] 60 mg PO DAILY@0800 11/30/21 11/30/21 Ergocalciferol (Vitamin D2) 1,250 mcg PO FR 11/30/21 11/30/21 [Drisdol (50,000 Iu)] Propranolol HCl 80 mg PO DAILY@0800 11/30/21 11/30/21 Propranolol [Inderal] 40 mg PO DAILY@1400 11/30/21 11/30/21 Propranolol [Inderal] 40 mg PO HS@2100 PRN 11/30/21 11/30/21 Previous Rx's Medication Instructions Recorded Acetaminophen Tab [Tylenol] 650 mg PO Q6HR PRN tab 12/03/21 Cephalexin [Keflex] 500 mg PO Q6HR #40 cap 12/03/21 Nicotine 21Mg/24Hr Patch [Habitrol] 1 patch TRANSDERM DAILY #14 patch 12/03/21 Allergies Allergy/AdvReac Type Severity Reaction Status Date / Time ibuprofen AdvReac ULCERS Verified 09/05/23 23:35 Review of Systems ROS Statement: Those systems with pertinent positive or pertinent negative responses have been documented in the HPI. ROS Other: All systems not noted in ROS Statement are negative. Past Medical History Past Medical History: Asthma, Hyperlipidemia, Hypertension, Skin Disorder Additional Past Medical History / Comment(s): Headaches, psorasis; colitis History of Any Multi-Drug Resistant Organisms: None Reported Past Surgical History: Heart Catheterization, Tubal Ligation Additional Past Surgical History / Comment(s): heart ablation for PSVT, (L) breast biopsy; colonoscopy. wisdom teeth; bunion sx october 2021 Past Anesthesia/Blood Transfusion Reactions: No Reported Reaction Past Psychological History: Anxiety, Depression Smoking Status: Current every day smoker Past Alcohol Use History: Occasional Past Drug Use History: None Reported General Exam Limitations: no limitations General appearance: alert, in no apparent distress Eye exam: Present: normal appearance Neck exam: Present: normal inspection Respiratory exam: Present: normal lung sounds bilaterally Cardiovascular Exam: Present: regular rate GI/Abdominal exam: Present: soft (Right upper quadrant tenderness to palpation. No rebound guarding or rigidity. Bowel sounds active.) Neurological exam: Present: alert, oriented X3 Skin exam: Present: warm, dry Course Vital Signs 09/05/23 23:31 Temperature 98.7 F Pulse Rate 96 Respiratory 22 Rate Blood Pressure 143/89 O2 Sat by Pulse 99 Oximetry Medical Decision Making - Medical Decision Making Was pt. sent in by a medical professional or institution (, PA, RESPIRATORY TECHNICIAN, urgent care, hospital, or skilled nursing...) When possible be specific @ -No Did you speak to anyone other than the patient for history (EMS, parent, family, police, friend...)? What history was obtained from this source @ -No Did you review nursing and triage notes (agree or disagree)? Why? @ -I reviewed and agree with nursing and triage notes Were old charts reviewed (outside hosp., previous admission, EMS record, old EKG, old radiological studies, urgent care reports/EKG's, skilled nursing records)? Report findings @ -No old charts were reviewed Differential Diagnosis (chest pain, altered mental status, abdominal pain women, abdominal pain men, vaginal bleeding, weakness, fever, dyspnea, syncope, headache, dizziness, GI bleed, back pain, seizure, CVA, palpatations, mental health, musculoskeletal)? @ -Differential Abdominal Pain Women: Appendicitis, Cholecystitis, diverticulosis, ischemic bowel, pancreatitis, hepatitis, UTI, gastroenteritis, AAA, incarcerated hernia, bowel obstruction, constipation, inflammatory bowel, hepatitis, peptic ulcer disease, splenic infarction, perforated viscus, vulvitis, ovarian torsion, PID, kidney stone, placenta abruption, this is not meant to be an all-inclusive list EKG interpreted by me (3pts min.). @ -None X-rays interpreted by me (1pt min.). @ -None done CT interpreted by me (1pt min.). @ -None done U/S interpreted by me (1pt. min.). @ -Ultrasound interpreted me showing pericholecystic fluid. What testing was considered but not performed or refused? (CT, X-rays, U/S, labs)? Why? @ -None What meds were considered but not given or refused? Why? @ -None Did you discuss the management of the patient with other professionals (professionals i.e. , PA, RESPIRATORY TECHNICIAN, lab, RT, psych nurse, social service technician, crewman main battle tank, teacher, chief contract officer, family independence case manager)? Give summary @ -No Was smoking cessation discussed for >3mins.? @ -No Was critical care preformed (if so, how long)? @ -No Were there social determinants of health that impacted care today? How? (Homelessness, low income, unemployed, alcoholism, drug addiction, transport ation, low edu. Level, literacy, decrease access to med. care, correction, rehab)? @ -No Was there de-escalation of care discussed even if they declined (Discuss DNR or withdrawal of care, Hospice)? DNR status @ -No What co-morbidities impacted this encounter? (DM, HTN, Smoking, COPD, CAD, Cancer, CVA, ARF, Chemo, Hep., AIDS, mental health diagnosis, sleep apnea, morbid obesity)? @ -None Was patient admitted / discharged? Hospital course, mention meds given and route, prescriptions, significant lab abnormalities, going to OR and other pertinent info. @ -Admission 47-year-old female presented to the ED with complaints of right upper quadrant pain for the past 2 weeks today onset of pain worsening with associated nausea and vomiting. Laboratory studies reviewed. CBC unremarkable. Chemistry panel does show transaminitis AST 197, ALT 285, alk phos 388. Bilirubin 1.0. Ultraso und reviewed which showed trace pericholecystic fluid. Patient will be admitted to surgery NPO. Patient provided Zosyn. Undiagnosed new problem with uncertain prognosis? @ -No Drug Therapy requiring intensive monitoring for toxicity (Heparin, Nitro, Insulin, Cardizem)? @ -No Were any procedures done? @ -No Diagnosis/symptom? @ -Cholecystitis Acute, or Chronic, or Acute on Chronic? @ -Acute Uncomplicated (without systemic symptoms) or Complicated (systemic symptoms)? @ -Uncomplicated Side effects of treatment? @ -No Exacerbation, Progression, or Severe Exacerbation? @ -No Poses a threat to life or bodily function? How? (Chest pain, [place], [place], pneumonia, PE, COPD, DKA, ARF, appy, cholecystitis, CVA, Diverticulitis, Homicidal, Suicidal, threat to staff... and all critical care pts) @ -Unlikely - Lab Data Result diagrams: 09/06/23 00:25 09/06/23 00:25 Lab Results 09/06/23 09/06/23 Range/Units 00:25 00:25 WBC 9.4 (3.8-10.6) k/uL RBC 4.65 (3.80-5.40) m/uL Hgb 15.0 (11.4-16.0) gm/dL Hct 47.0 H (34.0-46.0) % MCV 101.1 H (80.0-100.0) fL MCH 32.2 (25.0-35.0) pg MCHC 31.9 (31.0-37.0) g/dL RDW 13.4 (11.5-15.5) % Plt Count 240 (150-450) k/uL MPV 8.4 Neutrophils % 50 % Lymphocytes % 27 % Monocytes % 9 % Eosinophils % 11 % Basophils % 1 % Neutrophils # 4.7 (1.3-7.7) k/uL Lymphocytes # 2.5 (1.0-4.8) k/uL Monocytes # 0.9 (0-1.0) k/uL Eosinophils # 1.0 H (0-0.7) k/uL Basophils # 0.1 (0-0.2) k/uL Macrocytosis Slight Sodium 135 L (137-145) mmol/L Potassium 3.2 L (3.5-5.1) mmol/L Chloride 106 (98-107) mmol/L Carbon Dioxide 20 L (22-30) mmol/L Anion Gap 9 mmol/L BUN 6 L (7-17) mg/dL Creatinine 0.63 (0.52-1.04) mg/dL Est GFR (CKD-EPI)AfAm >90 (>60 ml/min/1.73 sqM) Est GFR (CKD-EPI)NonAf >90 (>60 ml/min/1.73 sqM) Glucose 80 (74-99) mg/dL Calcium 9.1 (8.4-10.2) mg/dL Total Bilirubin 1.0 (0.2-1.3) mg/dL AST 197 H (14-36) U/L ALT 285 H (4-34) U/L Alkaline Phosphatase 388 H (38-126) U/L Total Protein 6.3 (6.3-8.2) g/dL Albumin 3.4 L (3.5-5.0) g/dL Amylase 66 (30-110) U/L Lipase 88 (23-300) U/L Disposition Clinical Impression: Cholecystitis Disposition: ADMITTED IP TO THIS HOSP Condition: Good Referrals: Bari Stark [Primary Care Provider] - 1-2 days Time of Disposition: 02:19
[2023-09-06] MEDS ORDERED: HYDROmorphone 0.5 MG/0.5 ML SYRINGE IVP PRN (02:20)
[2023-09-06] MEDS ORDERED: NALOXONE 0.4 MG/ML 1 ML VIAL IV PRN (02:20)
[2023-09-06] MEDS ORDERED: ACETAMINOPHEN TAB 325 MG TAB PO PRN (02:20)
[2023-09-06] MEDS: SODIUM CHLORIDE 0.9% 1,000 ML IV SCH (02:52)
[2023-09-06] MEDS: PIPERACILLIN-TAZOBACTAM 3.375 GM in SODIUM CHLORIDE 0.9% 100 ML IVPB STA (02:53)
[2023-09-06 03:31] LABS: Appearance,Urine Clear (Clear); Bilirubin,Urine Negative (Negative); Blood,Urine Negative (Negative); Color,Urine Colorless; Glucose,Urine (UA) Negative (Negative); Ketones,Urine Negative (Negative); Leukocyte Esterase,Urine Negative (Negative); Nitrite,Urine Negative (Negative); Protein,Urine Negative (Negative); Specific Gravity,Urine 1.002 (1.001-1.035); Urobilinogen,Urine <2.0 mg/dL (<2.0)
[2023-09-06 03:52] LABS: INR 0.9 (<1.2); Partial Thromboplastin Time 24.3 sec (22.0-30.0); Prothrombin Time 10.3 sec (10.0-12.5)
[2023-09-06] MEDS: HYDROmorphone 1 MG/ML 1 ML SYRINGE IVP PRN ×2 (06:14→12:29)
[2023-09-06] MEDS: IV FLUID CONTINUATION 700 ML IV ONE (09:51)
[2023-09-06] MEDS: ONDANSETRON 4 MG/2 ML VIAL IVP PRN (09:57)
[2023-09-06] MEDS: HEPARIN SODIUM,PORCINE 5,000 UNIT/ML 1 ML VIAL SQ STA (10:06)
[2023-09-06] MEDS: DEXAMETHASONE SOD PHOSPHATE 4 MG/ML 1 ML VIAL IVP STA (10:06)
--- NOTE | 2023-09-06 10:07 | P.GSHP ---
History of Present Illness H&P Date: 09/06/23 Chief Complaint: right upper quadrant pain this is a 47-year-old female who's had complaints of right quadrant pain last several months. Patient had significant upper quadrant pain yesterday. Patient has known history of gallstones. Patient's found have evidence of cholel ithiasis. Patient has severe biliary colic. Past Medical History Past Medical History: Asthma, Hyperlipidemia, Hypertension, Skin Disorder Additional Past Medical History / Comment(s): Headaches, psorasis; colitis History of Any Multi-Drug Resistant Organisms: None Reported Past Surgical History: Heart Catheterization, Tubal Ligation Additional Past Surgical History / Comment(s): heart ablation for PSVT, (L) breast biopsy; colonoscopy. wisdom teeth; bunion sx october 2021 Past Anesthesia/Blood Transfusion Reactions: No Reported Reaction Past Psychological History: Anxiety, Depression Smoking Status: Current every day smoker Past Alcohol Use History: Occasional Past Drug Use History: None Reported Medications and Allergies Home Medications Medication Instructions Recorded Confirmed Type DULoxetine HCL [Cymbalta] 120 mg PO DAILY 11/30/21 09/06/23 History Metoprolol Tartrate [Lopressor] 50 mg PO BID 09/06/23 09/06/23 History Omeprazole [PriLOSEC] 40 mg PO DIRECTED 09/06/23 09/06/23 History metroNIDAZOLE [Flagyl] 500 mg PO DIRECTED 09/06/23 09/06/23 History Allergies Allergy/AdvReac Type Severity Reaction Status Date / Time ibuprofen AdvReac ULCERS Verified 09/06/23 06:58 Surgical - Exam Vital Signs Temp Pulse Resp BP Pulse Ox 98.7 F 96 22 143/89 99 09/05/23 23:31 09/05/23 23:31 09/05/23 23:31 09/05/23 23:31 09/05/23 23:31 - General well developed, well nourished, no distress - Eyes PERRL - ENT normal pinna - Neck no masses - Respiratory normal expansion - Cardiovascular Rhythm: regular - Abdomen abdomen soft. There is significant right upper quadrant tenderness. Results - Labs 09/06/23 00:25 09/06/23 00:25 Abnormal Lab Results - Last 24 Hours (Table) 09/06/23 09/06/23 Range/Units 00:25 00:25 Hct 47.0 H (34.0-46.0) % MCV 101.1 H (80.0-100.0) fL Eosinophils # 1.0 H (0-0.7) k/uL Sodium 135 L (137-145) mmol/L Potassium 3.2 L (3.5-5.1) mmol/L Carbon Dioxide 20 L (22-30) mmol/L BUN 6 L (7-17) mg/dL AST 197 H (14-36) U/L ALT 285 H (4-34) U/L Alkaline Phosphatase 388 H (38-126) U/L Albumin 3.4 L (3.5-5.0) g/dL Diabetes panel 09/06/23 Range/Units 00:25 Sodium 135 L (137-145) mmol/L Potassium 3.2 L (3.5-5.1) mmol/L Chloride 106 (98-107) mmol/L Carbon Dioxide 20 L (22-30) mmol/L BUN 6 L (7-17) mg/dL Creatinine 0.63 (0.52-1.04) mg/dL Glucose 80 (74-99) mg/dL Calcium 9.1 (8.4-10.2) mg/dL AST 197 H (14-36) U/L ALT 285 H (4-34) U/L Alkaline Phosphatase 388 H (38-126) U/L Total Protein 6.3 (6.3-8.2) g/dL Albumin 3.4 L (3.5-5.0) g/dL Calcium panel 09/06/23 Range/Units 00:25 Calcium 9.1 (8.4-10.2) mg/dL Albumin 3.4 L (3.5-5.0) g/dL Pituitary panel 09/06/23 Range/Units 00:25 Sodium 135 L (137-145) mmol/L Potassium 3.2 L (3.5-5.1) mmol/L Chloride 106 (98-107) mmol/L Carbon Dioxide 20 L (22-30) mmol/L BUN 6 L (7-17) mg/dL Creatinine 0.63 (0.52-1.04) mg/dL Glucose 80 (74-99) mg/dL Calcium 9.1 (8.4-10.2) mg/dL Adrenal panel 09/06/23 Range/Units 00:25 Sodium 135 L (137-145) mmol/L Potassium 3.2 L (3.5-5.1) mmol/L Chloride 106 (98-107) mmol/L Carbon Dioxide 20 L (22-30) mmol/L BUN 6 L (7-17) mg/dL Creatinine 0.63 (0.52-1.04) mg/dL Glucose 80 (74-99) mg/dL Calcium 9.1 (8.4-10.2) mg/dL Total Bilirubin 1.0 (0.2-1.3) mg/dL AST 197 H (14-36) U/L ALT 285 H (4-34) U/L Alkaline Phosphatase 388 H (38-126) U/L Total Protein 6.3 (6.3-8.2) g/dL Albumin 3.4 L (3.5-5.0) g/dL - Imaging US - abdomen: report reviewed (gallstones) Assessment and Plan Assessment: symptomatically lithiasis with probable acute cholecystitis. Patient will undergo laparoscopic cholecystectomy.
[2023-09-06] MEDS ORDERED: SUCCINYLCHOLINE CHLORIDE 200 MG/10 ML VIAL IV ONE (10:31)
[2023-09-06] MEDS ORDERED: MIDAZOLAM 2 MG/2 ML VIAL ONE (10:31)
[2023-09-06] MEDS ORDERED: PROPOFOL 10 MG/ML 20 ML VIAL IV ONE (10:31)
[2023-09-06] MEDS ORDERED: fentaNYL (PF) 50 MCG/ML 2 ML AMP ONE (10:31)
[2023-09-06] MEDS ORDERED: HYDROmorphone (PF) 1 MG/ML ONE (10:31)
[2023-09-06] MEDS ORDERED: LIDOCAINE 1% INJ 10MG/ML (20 ML MDV) ONE (10:31)
[2023-09-06] MEDS ORDERED: ROCURONIUM 10 MG/ML (5 ML VIAL) IV ONE (10:31)
[2023-09-06] MEDS ORDERED: LIDOCAINE 4% LTA KIT (4 ML) TOPICAL ONE (10:31)
[2023-09-06] MEDS ORDERED: SUGAMMADEX SODIUM 200 MG/2 ML SDV IV ONE (10:31)
[2023-09-06] MEDS: LIDOCAINE 1%-EPI 1:100,000 20 ML VIAL SQ ONE (10:50)
[2023-09-06] MEDS: IV FLUID CONTINUATION 1,000 ML IV ONE (11:08)
--- NOTE | 2023-09-06 11:26 | P.OP ---
Date of Procedure: 09/06/23 Preoperative Diagnosis: cholelithiasis Postoperative Diagnosis: cholelithiasis Procedure(s) Performed: laparoscopic cholecystectomy Anesthesia: MAIKOL Surgeon: Phi Ruiz Estimated Blood Loss (ml): 5 Pathology: other (gallbladder) Condition: stable Disposition: PACU Description of Procedure: The patient was placed on the operating table. The patient received a general endotracheal tube anesthesia. The patients abdomen was prepped and draped in the usual sterile fashion. Through an infraumbilical stab incision, the fascia of the anterior abdominal wall was grasped with a pair of Kochers and then the Veress needle was placed in the peritoneal cavity. Position of the Veress needle was confirmed with positive drop test. The abdomen was then insufflated. After adequate insufflation, the 10 mm trocar was placed in the peritoneal cavity. Following this the laparoscope was placed in the peritoneal cavity. The patient was placed in the head-up, right side up position and then a 5 mm trocar was placed in the right lateral and right subcostal position under direct visualization. A 8 mm trocar was placed in the epigastric position. The gallbladder was grasped in the fundus and infundibulum. Traction on the gallbladder was placed in the lateral and the cephalad positions. The triangle of Calot was visualized.. The cystic duct was bluntly dissected until the union of the cystic duct and common bile duct was seen. A critical view of safety was achieved. The cystic duct was then divided and sealed with the Harmonic scissors. A PDS Endoloop was then placed throughout the cystic duct stump. The cystic artery divided and sealed with the Harmonic scissors. The gallbladder was then removed from the liver bed using Harmonic scissors. The gallbladder was then extracted through the epigastric port site. Operative field was checked for any bleeding spots and Harmonic scissors was used to coagulate the liver bed. The abdomen was irrigated. The trocars were removed. The skin was closed using interrupted 3-0 Vicryl suture. Dermabond dressing were applied. The patient tolerated the procedure well.
[2023-09-06] MEDS: PIPERACILLIN-TAZOBACTAM 3.375 GM in SODIUM CHLORIDE 0.9% 100 ML IVPB SCH (12:20)
[2023-09-06] MEDS: POTASSIUM CHLORIDE ER 20 MEQ TAB.ER PO STA (12:29)
[2023-09-06] MEDS: HYDROcodone/APAP 7.5-325MG 1 EACH TAB PO PRN (14:26)
[2023-09-07 02:29] VITALS: PULSE 80
[2023-09-07 08:19] VITALS: BP 114/74; RESP 16; TEMP 98.4
[2023-09-07 09:56] LABS: ALT 137 U/L (4-34); AST 70 U/L (14-36); African American GFR (CKD) >90 (>60 ml/min/1.73 sqM); Albumin 2.7 g/dL (3.5-5.0); Albumin/Globulin Ratio 1.1; Alkaline Phosphatase 274 U/L (38-126); Anion Gap 3 mmol/L; Blood Urea Nitrogen 5 mg/dL (7-17); Calcium 8.5 mg/dL (8.4-10.2); Carbon Dioxide 23 mmol/L (22-30); Chloride 111 mmol/L (98-107); Globulin 2.5 g/dL; Glucose 154 mg/dL (74-99); Non-African American GFR(CKD) >90 (>60 ml/min/1.73 sqM); Potassium 3.9 mmol/L (3.5-5.1); Sodium 137 mmol/L (137-145); Total Bilirubin 0.9 mg/dL (0.2-1.3); Total Protein 5.2 g/dL (6.3-8.2)
--- NOTE | 2023-09-07 11:28 | P.DS ---
Providers Date of admission: 09/06/23 02:21 Expected date of discharge: 09/07/23 Attending physician: Phi Ruiz Primary care physician: Bari Stark Hospital Course: Discharge diagnosis 1. Symptomatic cholelithiasis status post laparoscopic cholecystectomy Hospital course This is a 47-year-old female who presented to the hospital with complaints of right upper quadrant abdominal pain. Patient with evidence of cholelithiasis. Patient is status post laparoscopic cholecystectomy. Patient tolerated surgery well. Her pain is controlled. She is tolerating diet. She is having flatus. She has been up and ambulating. She is afebrile. She is stable for discharge. Physician Director Emergency Services note has been reviewed by physician. Signing provider agrees with the documented findings, assessment, and plan of care. Patient Condition at Discharge: Stable Plan - Discharge Summary Discharge Rx Participant: Yes New Discharge Prescriptions: New HYDROcodone/APAP 5-325MG [[place] 5-325] 1 tab PO Q6HR PRN 3 Days #12 tab PRN Reason: Pain Continue DULoxetine HCL [Cymbalta] 120 mg PO DAILY Omeprazole [PriLOSEC] 40 mg PO DIRECTED Metoprolol Tartrate [Lopressor] 50 mg PO BID No Action metroNIDAZOLE [Flagyl] 500 mg PO DIRECTED Discharge Medication List DULoxetine HCL [Cymbalta] 120 mg PO DAILY 11/30/21 [History] Metoprolol Tartrate [Lopressor] 50 mg PO BID 09/06/23 [History] Omeprazole [PriLOSEC] 40 mg PO DIRECTED 09/06/23 [History] metroNIDAZOLE [Flagyl] 500 mg PO DIRECTED 09/06/23 [History] HYDROcodone/APAP 5-325MG [[place] 5-325] 1 tab PO Q6HR PRN 3 Days #12 tab 09/07/23 [Rx] Follow up Appointment(s)/Referral(s): Bari Stark [Primary Care Provider] - 1-2 days Phi Ruiz MD [STAFF PHYSICIAN] - 1 Week Activity/Diet/Wound Care/Special Instructions: No driving while taking [place] No lifting over 10 pounds Shower daily. No soaking or tub baths for 2 weeks Very light activity until you are reevaluated at your follow up appointment with your surgeon Discharge Disposition: HOME SELF-CARE
[2023-09-07 11:35] VITALS: BMI 23.1
== END 2023-09-07 12:25 | disposition home or self-care (01) ==
LOC: EC 23:27 → 6NMEDSUR 09-06 02:21
PROVIDERS: ADMIT Surgery; ATTEND Surgery
DX: K80.12 Calculus of gallbladder with acute and chronic cholecystitis without obstruction (principal); I10 Essential (primary) hypertension; E78.5 Hyperlipidemia, unspecified; J45.909 Unspecified asthma, uncomplicated; R74.01 Elevation of levels of liver transaminase levels; F32.A Depression, unspecified; L40.9 Psoriasis, unspecified; R51.9 Headache, unspecified; F17.210 Nicotine dependence, cigarettes, uncomplicated; Z87.19 Personal history of other diseases of the digestive system; Z79.899 Other long term (current) drug therapy; Z88.6 Allergy status to analgesic agent
CPT/HCPCS: 96376; 96361; 96374; 96375; 99285; 36415; 81025 ×2; 86900; 86901; 88304; 80053 ×2; 82150; 83690; 85025; 85610; 85730; 86850; 81003; 87040; 76705; 47562; G0378 ×2; J2543 ×2; J2250; J0330; J1644; J1100; J0690; J2405; J2001; J3010; J1170 ×2; J1885; J2704

== ENCOUNTER 2023-09-30 15:20 | Inpatient (IN) | payer OTHER ==
--- NOTE | 2023-09-30 15:44 | ED ---
Fever HPI - General Chief Complaint: Abdominal Pain Stated Complaint: abd pain/galbladder out rec Time Seen by Provider: 09/30/23 15:35 Source: patient, RN notes reviewed, old records reviewed Mode of arrival: ambulatory Limitations: no limitations - History of Present Illness Initial Comments: This is a 48-year-old female to the ER for evaluation she is around 1 month away from having her gallbladder removed here at this hospital. Patient states she will went to bed last night with some abdominal pain woke up today with worsening abdominal pain diffuse abdominal pain with right upper quadrant localization. Patient's pain is severe in the right upper quadrant with nausea and she also has a fever currently. Fever was noticed at home and is persistent here in the ER. No cough congestion no dysuria no diarrhea MD Complaint: fever, malaise, other (Right upper quadrant abdominal pain) -: days(s) Temperature Source: subjective Context: recent procedure Associated Symptoms: chills, myalgias Treatments Prior to Arrival: Acetaminophen - Related Data Home Medications Medication Instructions Recorded Confirmed DULoxetine HCL [Cymbalta] 120 mg PO DAILY 11/30/21 10/01/23 Metoprolol Tartrate [Lopressor] 50 mg PO BID 09/06/23 10/01/23 Budesonide [Entocort EC] See Taper PO DIRECTED 10/01/23 10/01/23 Colestipol HCl 1 gm PO DIRECTED 10/01/23 10/01/23 Previous Rx's Medication Instructions Recorded cefUROXime axetiL [Ceftin] 500 mg PO BID #20 tab 10/04/23 metroNIDAZOLE [Flagyl] 500 mg PO TID #30 tab 10/04/23 Allergies Allergy/AdvReac Type Severity Reaction Status Date / Time ibuprofen AdvReac ULCERS Verified 10/01/23 11:09 Review of Systems ROS Statement: Those systems with pertinent positive or pertinent negative responses have been documented in the HPI. ROS Other: All systems not noted in ROS Statement are negative. Past Medical History Past Medical History: Asthma, Hyperlipidemia, Hypertension, Skin Disorder, Supraventricular Tachycardia (SVT) Additional Past Medical History / Comment(s): Headaches, psorasis; colitis History of Any Multi-Drug Resistant Organisms: None Reported Past Surgical History: Cholecystectomy, Heart Catheterization, Tubal Ligation Additional Past Surgical History / Comment(s): heart ablation for PSVT, (L) breast biopsy; colonoscopy. wisdom teeth; bunion sx october 2021 Past Anesthesia/Blood Transfusion Reactions: No Reported Reaction Past Psychological History: Anxiety, Depression Smoking Status: Current every day smoker Past Alcohol Use History: Occasional Past Drug Use History: None Reported General Exam Limitations: no limitations General appearance: alert, in no apparent distress Head exam: Present: atraumatic, normocephalic, normal inspection Eye exam: Present: normal appearance, PERRL, EOMI. Absent: scleral icterus, conjunctival injection, periorbital swelling ENT exam: Present: normal exam, mucous membranes moist Neck exam: Present: normal inspection. Absent: tenderness, meningismus, lymphadenopathy Respiratory exam: Present: normal lung sounds bilaterally. Absent: respiratory distress, wheezes, rales, rhonchi, stridor Cardiovascular Exam: Present: regular rate, normal rhythm, normal heart sounds. Absent: systolic murmur, diastolic murmur, rubs, gallop, clicks GI/Abdominal exam: Present: soft, normal bowel sounds. Absent: distended, tenderness, guarding, rebound, rigid Extremities exam: Present: normal inspection, full ROM, normal capillary refill. Absent: tenderness, pedal edema, joint swelling, calf tenderness Back exam: Present: normal inspection Neurological exam: Present: alert, oriented X3, CN II-XII intact Psychiatric exam: Present: normal affect, normal mood Skin exam: Present: warm, dry, intact, normal color. Absent: rash Course Vital Signs 09/30/23 09/30/23 15:21 21:12 Temperature 100.1 F H 99.0 F Pulse Rate 148 H 74 Respiratory 20 18 Rate Blood Pressure 127/72 105/71 O2 Sat by Pulse 100 99 Oximetry - Reevaluation(s) Reevaluation #1: 09/30/23 18:37 Medical records reviewed Reevaluation #2: 09/30/23 18:37 Patient symptoms improving Reevaluation #3: 09/30/23 18:37 Patient informed of results questions answered Reevaluation #4: Was pt. sent in by a medical professional or institution (, PA, [employer]ER, urgent care, hospital, or usp...) When possible be specific @ -no Did you speak to anyone other than the patient for history (EMS, parent, family, police, friend...)? What history was obtained from this source @ -no Did you review nursing and triage notes (agree or disagree)? Why? @ -agree Are old charts reviewed (outside hosp., previous admission, EMS record, old EKG, old radiological studies, urgent care reports/EKG's, usp records)? Report findings @ -yes Differential Diagnosis (chest pain, altered mental status, abdominal pain women, abdominal pain men, vaginal bleeding, weakness, fever, dyspnea, syncope, headache, dizziness, GI bleed, back pain, seizure, CVA, palpatations, mental health, musculoskeletal)? @ -prior EKG interpreted by me (3pts min.). @ -yes X-rays interpreted by me (1pt min.). @ -yes negative for acute disease CT interpreted by me (1pt min.). @ -Yes negative for acute disease U/S interpreted by me (1pt. min.). @ -Yes negative for acute disease What testing was considered but not performed or refused? (CT, X-rays, U/S, labs )? Why? @ -none What meds were considered but not given or refused? Why? @ -none Did you discuss the management of the patient with other professionals (professionals i.e. , PA, [employer], lab, RT, psych nurse, social media executive, oracle hyperion consultant, teacher, sergeant of officers, supportive employment case manager)? Give summary @ -no Was smoking cessation discussed for >3mins.? @ -no Was critical care preformed (if so, how long)? @ -no Were there social determinants of health that impacted care today? How? (Homelessness, low income, unemployed, alcoholism, drug addiction, transportation, low edu. Level, literacy, decrease access to med. care, senior care, rehab)? @ -none Was there de-escalation of care discussed even if they declined (Discuss DNR or withdrawal of care, Hospice)? DNR status @ -no What co-morbidities impacted this encounter? (DM, HTN, Smoking, COPD, CAD, Cancer, CVA, ARF, Chemo, Hep., AIDS, mental health diagnosis, sleep apnea, morbid obesity)? @ -none Was patient admitted / discharged? Hospital course, mention meds given and route, prescriptions, significant lab abnormalities, going to OR and other pertinent info. @ - 48 female to ER for evaluation of fever and abdominal pain patient does have postoperative changes of the right upper quadrant with surgical consultation, patient will be admitted for fever control and reevaluation of mild increase in transaminases since surgery. Admitted Undiagnosed new problem with uncertain prognosis? @ -no Drug Therapy requiring intensive monitoring for toxicity (Heparin, Nitro, Insulin, Cardizem)? @ -no Were any procedures done? @ -no Diagnosis/symptom? @ -Abdominal pain fever postoperative fever Acute, or Chronic, or Acute on Chronic? @ -Acute Uncomplicated (without systemic symptoms) or Complicated (systemic symptoms)? @ -Complicated Side effects of treatment? @ -no Exacerbation, Progression, or Severe Exacerbation? @ -exacerbation Poses a threat to life or bodily function? How? (Chest pain, USA, ND, pneumonia, PE, COPD, DKA, ARF, appy, cholecystitis, CVA, Diverticulitis, Homicidal, Suicidal, threat to staff... and all critical care pts) @ -yes fever postoperative Reevaluation #5: Differential Abdominal Pain Women: Appendicitis, Cholecystitis, diverticulosis, ischemic bowel, pancreatitis, hepatitis, UTI, gastroenteritis, AAA, incarcerated hernia, bowel obstruction, constipation, inflammatory bowel, hepatitis, peptic ulcer disease, splenic infarction, perforated viscus, vulvitis, ovarian torsion, PID, kidney stone, placenta abruption, this is not meant to be an all-inclusive list - Consultations Consultation #1: Spoke with [facility] who agrees to admit this patient Medical Decision Making - Medical Decision Making 48 female to ER for evaluation of fever and abdominal pain patient does have postoperative changes of the right upper quadrant with surgical consultation, patient will be admitted for fever control and reevaluation of mild increase in transaminases since surgery. - Lab Data Result diagrams: 10/04/23 04:49 10/04/23 04:49 Lab Results 09/30/23 09/30/23 09/30/23 Range/Units 15:50 15:50 15:50 WBC 8.5 (3.8-10.6) k/uL RBC 4.78 (3.80-5.40) m/uL Hgb 15.7 (11.4-16.0) gm/dL Hct 46.6 H (34.0-46.0) % MCV 97.5 (80.0-100.0) fL MCH 32.9 (25.0-35.0) pg MCHC 33.8 (31.0-37.0) g/dL RDW 12.8 (11.5-15.5) % Plt Count 257 (150-450) k/uL MPV 8.3 Neutrophils % 85 % Lymphocytes % 8 % Monocytes % 4 % Eosinophils % 3 % Basophils % 0 % Neutrophils # 7.2 (1.3-7.7) k/uL Lymphocytes # 0.6 L (1.0-4.8) k/uL Monocytes # 0.4 (0-1.0) k/uL Eosinophils # 0.2 (0-0.7) k/uL Basophils # 0.0 (0-0.2) k/uL Sodium 136 L (137-145) mmol/L Potassium 3.4 L (3.5-5.1) mmol/L Chloride 109 H (98-107) mmol/L Carbon Dioxide 19 L (22-30) mmol/L Anion Gap 8 mmol/L BUN 5 L (7-17) mg/dL Creatinine 0.58 (0.52-1.04) mg/dL Est GFR (CKD-EPI)AfAm >90 (>60 ml/min/1.73 sqM) Est GFR (CKD-EPI)NonAf >90 (>60 ml/min/1.73 sqM) Glucose 100 H (74-99) mg/dL Plasma Lactic Acid Trae 1.3 (0.7-2.0) mmol/L Calcium 9.2 (8.4-10.2) mg/dL Total Bilirubin 1.7 H (0.2-1.3) mg/dL AST 531 H (14-36) U/L ALT 197 H (4-34) U/L Alkaline Phosphatase 210 H (38-126) U/L Total Protein 7.0 (6.3-8.2) g/dL Albumin 3.9 (3.5-5.0) g/dL Amylase 52 (30-110) U/L Lipase 78 (23-300) U/L Urine Color Urine Appearance (Clear) Urine pH (5.0-8.0) Ur Specific [place] (1.001-1.035) Urine Protein (Negative) Urine Glucose (UA) (Negative) Urine Ketones (Negative) Urine Blood (Negative) Urine Nitrite (Negative) Urine Bilirubin (Negative) Urine Urobilinogen (<2.0) mg/dL Ur Leukocyte Esterase (Negative) Urine RBC (0-5) /hpf Urine WBC (0-5) /hpf Ur Squamous Epith Cells (0-4) /hpf Hyaline Casts (0-2) /lpf Urine Mucus (None) /hpf Influenza Type A (PCR) (Not Detectd) Influenza Type B (PCR) (Not Detectd) RSV (PCR) (Not Detectd) SARS-CoV-2 (PCR) (Not Detectd) 09/30/23 09/30/23 Range/Units 15:50 18:11 WBC (3.8-10.6) k/uL RBC (3.80-5.40) m/uL Hgb (11.4-16.0) gm/dL Hct (34.0-46.0) % MCV (80.0-100.0) fL MCH (25.0-35.0) pg MCHC (31.0-37.0) g/dL RDW (11.5-15.5) % Plt Count (150-450) k/uL MPV Neutrophils % % Lymphocytes % % Monocytes % % Eosinophils % % Basophils % % Neutrophils # (1.3-7.7) k/uL Lymphocytes # (1.0-4.8) k/uL Monocytes # (0-1.0) k/uL Eosinophils # (0-0.7) k/uL Basophils # (0-0.2) k/uL Sodium (137-145) mmol/L Potassium (3.5-5.1) mmol/L Chloride (98-107) mmol/L Carbon Dioxide (22-30) mmol/L Anion Gap mmol/L BUN (7-17) mg/dL Creatinine (0.52-1.04) mg/dL Est GFR (CKD-EPI)AfAm (>60 ml/min/1.73 sqM) Est GFR (CKD-EPI)NonAf (>60 ml/min/1.73 sqM) Glucose (74-99) mg/dL Plasma Lactic Acid Trae (0.7-2.0) mmol/L Calcium (8.4-10.2) mg/dL Total Bilirubin (0.2-1.3) mg/dL AST (14-36) U/L ALT (4-34) U/L Alkaline Phosphatase (38-126) U/L Total Protein (6.3-8.2) g/dL Albumin (3.5-5.0) g/dL Amylase (30-110) U/L Lipase (23-300) U/L Urine Color Yellow Urine Appearance Clear (Clear) Urine pH 6.0 (5.0-8.0) Ur Specific [place] 1.025 (1.001-1.035) Urine Protein 1+ H (Negative) Urine Glucose (UA) Negative (Negative) Urine Ketones Negative (Negative) Urine Blood Negative (Negative) Urine Nitrite Negative (Negative) Urine Bilirubin 1+ H (Negative) Urine Urobilinogen 2.0 (<2.0) mg/dL Ur Leukocyte Esterase Negative (Negative) Urine RBC 3 (0-5) /hpf Urine WBC 1 (0-5) /hpf Ur Squamous Epith Cells <1 (0-4) /hpf Hyaline Casts 1 (0-2) /lpf Urine Mucus Many H (None) /hpf Influenza Type A (PCR) Not Detected (Not Detectd) Influenza Type B (PCR) Not Detected (Not Detectd) RSV (PCR) Not Detected (Not Detectd) SARS-CoV-2 (PCR) Not Detected (Not Detectd) - EKG Data -: EKG Interpreted by Me (EKG is sinus tachycardia 128 DC 160 QRS 92 QTc 382) - Radiology Data Radiology results: report reviewed (CT abdomen pelvis is positive postoperative changes ultrasound negative for acute disease or retained stone chest x-ray is negative for acute disease), image reviewed Disposition Clinical Impression: Abdominal pain, Fever, Alcohol use disorder Disposition: ADMITTED IP TO THIS HOSP Condition: Good Is patient prescribed a controlled substance at d/c from ED?: No Time of Disposition: 20:05
[2023-09-30] MEDS: ONDANSETRON 4 MG/2 ML VIAL IVP STA (16:02)
[2023-09-30] MEDS: SODIUM CHLORIDE 0.9% 1,000 ML IV STA ×3 (16:02→21:14)
[2023-09-30] MEDS: HYDROmorphone 1 MG/ML 1 ML SYRINGE IM PRN (16:03)
[2023-09-30] MEDS: ACETAMINOPHEN IV (For NPO) 1,000 MG in EMPTY BAG 1 BAG IVPB STA (16:05)
[2023-09-30 16:15] LABS: Basophils % (A) 0 %; Eosinophils # (A) 0.2 k/uL (0-0.7); Eosinophils % (A) 3 %; HCT 46.6 % (34.0-46.0); HGB 15.7 gm/dL (11.4-16.0); Lymphocytes # (A) 0.6 k/uL (1.0-4.8); Lymphocytes % (A) 8 %; MCH 32.9 pg (25.0-35.0); MCHC 33.8 g/dL (31.0-37.0); MCV 97.5 fL (80.0-100.0); Mean Platelet Volume 8.3; Monocytes # (A) 0.4 k/uL (0-1.0); Monocytes % (A) 4 %; Neutrophils # (A) 7.2 k/uL (1.3-7.7); Neutrophils % (A) 85 %; Platelet Count 257 k/uL (150-450); RBC 4.78 m/uL (3.80-5.40); RDW 12.8 % (11.5-15.5); WBC 8.5 k/uL (3.8-10.6)
[2023-09-30 16:22] LABS: ALT 197 U/L (4-34); AST 531 U/L (14-36); African American GFR (CKD) >90 (>60 ml/min/1.73 sqM); Albumin 3.9 g/dL (3.5-5.0); Alkaline Phosphatase 210 U/L (38-126); Amylase 52 U/L (30-110); Anion Gap 8 mmol/L; Blood Urea Nitrogen 5 mg/dL (7-17); Calcium 9.2 mg/dL (8.4-10.2); Carbon Dioxide 19 mmol/L (22-30); Chloride 109 mmol/L (98-107); Glucose 100 mg/dL (74-99); Lipase 78 U/L (23-300); Non-African American GFR(CKD) >90 (>60 ml/min/1.73 sqM); Potassium 3.4 mmol/L (3.5-5.1); Sodium 136 mmol/L (137-145); Total Bilirubin 1.7 mg/dL (0.2-1.3)
--- NOTE | 2023-09-30 16:37 | XR ---
EXAMINATION TYPE: XR chest 2V DATE OF EXAM: 09/30/2023 COMPARISON: 11/30/2021 HISTORY: 48-year-old female with cough TECHNIQUE: PA and lateral views FINDINGS: The cardiomediastinal silhouette, aorta, and pulmonary vasculature are within normal limits. There is peribronchial cuffing noted. Otherwise, no consolidation or pleural effusion. IMPRESSION: Peribronchial cuffing suggests bronchitis or asthma. No focal infiltrate.
[2023-09-30] MEDS: SODIUM CHLORIDE 0.9% 500 ML 500 ML IV STA (16:42)
--- NOTE | 2023-09-30 17:50 | CT ---
EXAMINATION TYPE: CT abdomen pelvis w con DATE OF EXAM: 09/30/2023 COMPARISON: NONE HISTORY: 48-year-old female fever/right upper quadrant pain/recent surgery TECHNIQUE: Contiguous axial scanning of the abdomen and pelvis following administration of 100 ml Iso elizabeth 300 IV contrast. Delayed images through the kidneys and coronal/sagittal reconstructions perform ed. CT DLP: 649 mGycm Automated exposure control for dose reduction was used. FINDINGS: The heart is normal size without pericardial effusion. Lung bases clear without pleural effusion. Mild periportal edema is nonspecific. No biliary ductal dilatation. Cholecystectomy clip is noted. Th ere is strandy edema within the gallbladder fossa which would be in keeping with recent surgery. No w ell-defined fluid collection is seen. Portal venous system is patent. Adrenal glands, kidneys, spleen, pancreas within normal limits. Mild atherosclerotic calcifications infrarenal abdominal aorta and common iliac arteries. No dilated small bowel or free air. However, there are prominent fluid-filled small bowel loops mid t o lower abdomen and pelvis and liquid stool present throughout the colon. Redundant sigmoid colon. No pericolonic inflammatory change. Normal appendix. Mild circumferential bladder wall thickening. Uterus anteverted. Mild pelvic free fluid. Right-sided pelvic phleboliths. No pelvic lymphadenopathy. Bones: No osseous destructive process. IMPRESSION: 1. STRANDY EDEMA AT THE GALLBLADDER FOSSA WHICH WOULD BE IN KEEPING WITH PATIENT'S HISTORY OF RECENT CHOLECYSTECTOMY. NO WELL-DEFINED FLUID COLLECTION IS SEEN. CLINICALLY CORRELATE TO THE EXACT TIME OF PATIENT'S SURGERY. 2. PROMINENT FLUID-FILLED SMALL BOWEL LOOPS LOWER ABDOMEN AND PELVIS AND LIQUID STOOL THROUGHOUT THE COLON. CONSIDER GENERALIZED ILEUS OR ENTERITIS. 3. MILD CIRCUMFERENTIAL BLADDER WALL THICKENING . CORRELATE TO EXCLUDE CYSTITIS. 4. MILD PELVIC FREE FLUID MAYBE PHYSIOLOGIC OR COULD BE REACTIVE.
[2023-09-30 18:23] LABS: Appearance,Urine Clear (Clear); Bilirubin,Urine 1+ (Negative); Blood,Urine Negative (Negative); Color,Urine Yellow; Glucose,Urine (UA) Negative (Negative); Hyaline Casts,Urine 1 /lpf (0-2); Ketones,Urine Negative (Negative); Leukocyte Esterase,Urine Negative (Negative); Mucus,Urine Many /hpf; Nitrite,Urine Negative (Negative); Protein,Urine 1+ (Negative); RBC,Urine 3 /hpf (0-5); Specific Gravity,Urine 1.025 (1.001-1.035); Squamous Epithelial Cell,Urine <1 /hpf (0-4); WBC,Urine 1 /hpf (0-5)
--- NOTE | 2023-09-30 19:34 | US ---
EXAMINATION TYPE: US gallbladder DATE OF EXAM: 09/30/2023 COMPARISON: same day CT CLINICAL INDICATION: Female, 48 years old with history of recentCHolecystectomy,pain,labs; Cholecyste ctomy 09/05/23, symptoms began yesterday TECHNIQUE: Multiple sonographic images of the right upper quadrant are obtained. FINDINGS: EXAM MEASUREMENTS: Liver Length: 15.8 cm Gallbladder Wall: Surgically absent CBD: 0.5 cm Right Kidney: 9.0x5.5x4.3 cm DIRECTOR OF INDIVIDUAL GIVING NOTES: Pancreas: Obscured by bowel gas Liver: parenchyma WNL, mild periportal edema Gallbladder: Surgically absent Evidence for sonographic Kyle's sign: No CBD: wnl Right Kidney: No hydronephrosis or masses seen Exam limited by bowel gas IMPRESSION: 1. Limited study. Pancreas obscured by bowel gas. 2. S/P cholecystectomy with no abnormality seen in the gallbladder fossa. 3. No biliary dilitation.
[2023-09-30] MEDS ORDERED: NALOXONE 0.4 MG/ML 1 ML VIAL IV PRN (20:12)
[2023-09-30] MEDS ORDERED: ACETAMINOPHEN TAB 325 MG TAB PO PRN (20:12)
[2023-09-30] MEDS: POTASSIUM CHLORIDE 20 MEQ in WATER FOR INJECTION 1 100ML.BAG IVPB STA (21:08)
[2023-09-30] MEDS: HYDROmorphone 1 MG/ML 1 ML SYRINGE IVP PRN (22:25)
[2023-10-01] MEDS: SODIUM CHLORIDE 0.9% 1,000 ML IV SCH (01:56)
[2023-10-01 10:30] LABS: Lipase 16 U/L (14-63)
[2023-10-01 10:31] LABS: ALT 257 U/L (8-44); AST 414 U/L (13-35); Albumin/Globulin Ratio 1.76 Ratio (1.60-3.17); Alkaline Phosphatase 199 U/L (41-126); BUN/Creat Ratio <7.00 Ratio (12.00-20.00); Blood Urea Nitrogen <3.5 mg/dL (9.0-27.0); Calcium 8.3 mg/dL (8.7-10.3); Carbon Dioxide 22.2 mmol/L (21.6-31.8); Chloride 110 mmol/L (96-109); Globulin 1.7 g/dL (1.6-3.3); Glucose 82 mg/dL (70-110); Magnesium 1.8 mg/dL (1.5-2.4); Phosphorus 2.9 mg/dL (2.4-5.1); Potassium 3.5 mmol/L (3.5-5.5); Sodium 140 mmol/L (135-145); Total Bilirubin 1.9 mg/dL (0.3-1.2); Total Protein 4.7 g/dL (6.2-8.2)
--- NOTE | 2023-10-01 13:27 | P.HPIM ---
History of Present Illness H&P Date: 10/01/23 History of present illness; patient is a 48-year-old lady with past medical history significant for hyperlipidemia, recent laparoscopic cholecystectomy who presented to the ER for abdominal pain and fever. Patient stated that she was all right last night when she was woken up with abdominal pain that was severe, located in the right upper quadrant, it was intermittent, nonradiating. Abdominal pain was associate with nausea. Denies any vomiting. Patient also complaining of fevers. There is no current shortness of breath. There was no complaint of orthopnea or PND. There is no complaint of swelling of feet. Because of his abdominal pain, patient went to the ER Initial lab work done in the ER showed WBC 8.5, hemoglobin 15.7, platelet count 257, sodium 136, potassium 3.4, glucose 100, bilirubin 1.7, AST 531, ALT 197, alk phos 210 Influenza A not detected Influenza B not detected RSV not detected COVID-19 not detected EKG done in the ER showed heart rate of 128, no ST segment elevation or depression seen, no T-wave inversions seen. UA done negative for any infection Chest x-ray done in the ER showed peribronchial cuffing suggesting bronchitis or asthma CT abdominal pelvis done showed strandy edema at the gallbladder fossa which could be in keeping with patient history of recent cholecystectomy. Prominent fluid-filled small bowel loops. Ultrasound abdomen done showed status postcholecystectomy with no abnormality seen in gallbladder fossa, no biliary dilatation Patient admitted to internal medicine service REVIEW OF SYSTEMS: CONSTITUTIONAL: As mentioned above HEENT: No recent visual problems or hearing problems. Denied any sore throat. CARDIOVASCULAR: No chest pain, orthopnea, PND, no palpitations, no syncope. PULMONARY: As mentioned above GASTROINTESTINAL: No diarrhea, no nausea, no vomiting, no abdominal pain. NEUROLOGICAL: No headaches, no weakness, no numbness. HEMATOLOGICAL: Denies any bleeding or petechiae. GENITOURINARY: Denies any burning micturition, frequency, or urgency. MUSCULOSKELETAL/RHEUMATOLOGICAL: Denies any joint pain, swelling, or any muscle pain. ENDOCRINE: Denies any polyuria or polydipsia. The rest of the 14-point review of systems is negative. PHYSICAL EXAMINATION: GENERAL: The patient is alert and oriented x3, not in any acute distress. Well developed, well nourished. HEENT: Pupils are round and equally reacting to light. EOMI. No scleral icterus. No conjunctival pallor. Normocephalic, atraumatic. No pharyngeal erythema. No thyromegaly. CARDIOVASCULAR: S1 and S2 present. No murmurs, rubs, or gallops. PULMONARY: Chest is clear to auscultation, no wheezing or crackles. ABDOMEN: Soft, tenderness right upper quadrant, laparotomy surgical scar seen MUSCULOSKELETAL: No joint swelling or deformity. EXTREMITIES: No cyanosis, clubbing, or pedal edema. NEUROLOGICAL: Gross neurological examination did not reveal any focal deficits. SKIN: No rashes. Assessment and plan Fevers of unknown origin Abdominal pain Recent history of lap yesenia Hyponatremia Hypokalemia Acute transaminitis Hyperbilirubinemia Monitor vital signs Monitor CBC Monitor CMP Continue telemetry monitoring Ordered blood cultures Ordered CRP, ESR, Pro-David Hold off on antibiotics. Continue IV fluids Continue pain management Continue antiemetics DC statin because of transaminitis Consult general surgery Consult ID Labs and medication were reviewed.. Continue same treatment. Continue with symptomatic treatment. Resume home medication. Monitor labs and vitals. DVT and GI prophylaxis. Further recommendations as per clinical course of the patient Dictation was produced using [employer] dictation software. please excuse any grammatical, word or spelling errors. Past Medical History Past Medical History: Asthma, Hyperlipidemia, Hypertension, Skin Disorder, Supraventricular Tachycardia (SVT) Additional Past Medical History / Comment(s): Headaches, psorasis; colitis History of Any Multi-Drug Resistant Organisms: None Reported Past Surgical History: Cholecystectomy, Heart Catheterization, Tubal Ligation Additional Past Surgical History / Comment(s): heart ablation for PSVT, (L) breast biopsy; colonoscopy. wisdom teeth; bunion sx october 2021 Past Anesthesia/Blood Transfusion Reactions: No Reported Reaction Past Psychological History: Anxiety, Depression Smoking Status: Current every day smoker Past Alcohol Use History: Daily Past Drug Use History: None Reported Medications and Allergies Home Medications Medication Instructions Recorded Confirmed Type DULoxetine HCL [Cymbalta] 120 mg PO DAILY 11/30/21 10/01/23 History Metoprolol Tartrate [Lopressor] 50 mg PO BID 09/06/23 10/01/23 History Atorvastatin [Lipitor] 20 mg PO DAILY 10/01/23 10/01/23 History Budesonide [Entocort EC] See Taper PO DIRECTED 10/01/23 10/01/23 History Colestipol HCl 1 gm PO DIRECTED 10/01/23 10/01/23 History Allergies Allergy/AdvReac Type Severity Reaction Status Date / Time ibuprofen AdvReac ULCERS Verified 10/01/23 11:09 Physical Exam Vitals: Vital Signs Temp Pulse Pulse Resp BP BP Pulse Ox 10/01/23 06:59 98.7 F 98 17 144/80 97 10/01/23 02:27 98.2 F 87 16 99/64 99 09/30/23 21:12 99.0 F 74 18 105/71 99 09/30/23 15:21 100.1 F H 148 H 20 127/72 100 Intake and Output 09/30/23 10/01/23 10/01/23 22:59 06:59 14:59 Other: # Voids 4 Weight 61.235 kg Results CBC & Chem 7: 09/30/23 15:50 10/01/23 03:54 Labs: Abnormal Lab Results - Last 24 Hours (Table) 09/30/23 09/30/23 09/30/23 Range/Units 15:50 15:50 18:11 Hct 46.6 H (34.0-46.0) % Lymphocytes # 0.6 L (1.0-4.8) k/uL Sodium 136 L (137-145) mmol/L Potassium 3.4 L (3.5-5.1) mmol/L Chloride 109 H (98-107) mmol/L Carbon Dioxide 19 L (22-30) mmol/L BUN 5 L (7-17) mg/dL Glucose 100 H (74-99) mg/dL Total Bilirubin 1.7 H (0.2-1.3) mg/dL AST 531 H (14-36) U/L ALT 197 H (4-34) U/L Alkaline Phosphatase 210 H (38-126) U/L Urine Protein 1+ H (Negative) Urine Bilirubin 1+ H (Negative) Urine Mucus Many H (None) /hpf Thrombosis Risk Factor Assmnt - Choose All That Apply Any of the Below Risk Factors Present?: Yes Each Factor Represents 1 point: Age 41-60 years Other Risk Factors: No Thrombosis Risk Factor Assessment Total Risk Factor Score: 1 Thrombosis Risk Factor Assessment Level: Low Risk
--- NOTE | 2023-10-01 14:06 | P.GSCN ---
History of Present Illness Consult date: 10/01/23 Reason for Consult: Abdominal pain History of present illness: 48-year-old female underwent recent laparoscopic cholecystectomy. Patient came back to the ER with acute onset pain. Pain is in the upper abdomen and right upper quadrant. Associate with nausea. May be some fevers. Liver enzymes are elevated. CAT scan and ultrasound shows a small amount of fluid without abscess or significant biliary dilation. Patient says her urine is very dark. Review of Systems The patient denies any acute changes in vision or hearing, no dysphagia or odynophagia, no chest pain or shortness of breath, no dysuria or hematuria, no headache, no runny nose, no rectal bleeding or melena, no unexplained weight loss Past Medical History Past Medical History: Asthma, Hyperlipidemia, Hypertension, Skin Disorder, Supraventricular Tachycardia (SVT) Additional Past Medical History / Comment(s): Headaches, psorasis; colitis History of Any Multi-Drug Resistant Organisms: None Reported Past Surgical History: Cholecystectomy, Heart Catheterization, Tubal Ligation Additional Past Surgical History / Comment(s): heart ablation for PSVT, (L) breast biopsy; colonoscopy. wisdom teeth; bunion sx october 2021 Past Anesthesia/Blood Transfusion Reactions: No Reported Reaction Past Psychological History: Anxiety, Depression Smoking Status: Current every day smoker Past Alcohol Use History: Daily Past Drug Use History: None Reported Medications and Allergies Home Medications Medication Instructions Recorded Confirmed Type DULoxetine HCL [Cymbalta] 120 mg PO DAILY 11/30/21 10/01/23 History Metoprolol Tartrate [Lopressor] 50 mg PO BID 09/06/23 10/01/23 History Atorvastatin [Lipitor] 20 mg PO DAILY 10/01/23 10/01/23 History Budesonide [Entocort EC] See Taper PO DIRECTED 10/01/23 10/01/23 History Colestipol HCl 1 gm PO DIRECTED 10/01/23 10/01/23 History Allergies Allergy/AdvReac Type Severity Reaction Status Date / Time ibuprofen AdvReac ULCERS Verified 10/01/23 11:09 Surgical - Exam Vital Signs Temp Pulse Resp BP Pulse Ox 100.1 F H 148 H 20 127/72 100 09/30/23 15:21 09/30/23 15:21 09/30/23 15:21 09/30/23 15:21 09/30/23 15:21 Physical exam: General: Well-developed, well-nourished HEENT: Normocephalic, sclerae nonicteric Abdomen: Nontender, nondistended, incisions clean and dry Extremities: No edema Neuro: Alert and oriented Results - Labs 09/30/23 15:50 10/01/23 03:54 Abnormal Lab Results - Last 24 Hours (Table) 09/30/23 09/30/23 09/30/23 Range/Units 15:50 15:50 18:11 Hct 46.6 H (34.0-46.0) % Lymphocytes # 0.6 L (1.0-4.8) k/uL Sodium 136 L (137-145) mmol/L Potassium 3.4 L (3.5-5.1) mmol/L Chloride 109 H (98-107) mmol/L Carbon Dioxide 19 L (22-30) mmol/L BUN 5 L (7-17) mg/dL Creatinine (0.6-1.5) mg/dL BUN/Creatinine Ratio (12.00-20.00) Ratio Glucose 100 H (74-99) mg/dL Calcium (8.7-10.3) mg/dL Total Bilirubin 1.7 H (0.2-1.3) mg/dL AST 531 H (14-36) U/L ALT 197 H (4-34) U/L Alkaline Phosphatase 210 H (38-126) U/L C-Reactive Protein (<1.0) mg/dL Total Protein (6.2-8.2) g/dL Albumin (3.8-4.9) g/dL Urine Protein 1+ H (Negative) Urine Bilirubin 1+ H (Negative) Urine Mucus Many H (None) /hpf 10/01/23 10/01/23 Range/Units 03:54 10:40 Hct (34.0-46.0) % Lymphocytes # (1.0-4.8) k/uL Sodium (137-145) mmol/L Potassium (3.5-5.1) mmol/L Chloride 110 H (98-107) mmol/L Carbon Dioxide (22-30) mmol/L BUN <3.5 L (7-17) mg/dL Creatinine 0.5 L (0.6-1.5) mg/dL BUN/Creatinine Ratio <7.00 L (12.00-20.00) Ratio Glucose (74-99) mg/dL Calcium 8.3 L (8.7-10.3) mg/dL Total Bilirubin 1.9 H (0.2-1.3) mg/dL AST 414 H (14-36) U/L ALT 257 H (4-34) U/L Alkaline Phosphatase 199 H (38-126) U/L C-Reactive Protein 4.7 H (<1.0) mg/dL Total Protein 4.7 L (6.2-8.2) g/dL Albumin 3.0 L (3.8-4.9) g/dL Urine Protein (Negative) Urine Bilirubin (Negative) Urine Mucus (None) /hpf Diabetes panel 09/30/23 10/01/23 Range/Units 15:50 03:54 Sodium 136 L 140 (137-145) mmol/L Potassium 3.4 L 3.5 (3.5-5.1) mmol/L Chloride 109 H 110 H (98-107) mmol/L Carbon Dioxide 19 L 22.2 (22-30) mmol/L BUN 5 L <3.5 L (7-17) mg/dL Creatinine 0.58 0.5 L (0.52-1.04) mg/dL Glucose 100 H 82 (74-99) mg/dL Calcium 9.2 8.3 L (8.4-10.2) mg/dL AST 531 H 414 H (14-36) U/L ALT 197 H 257 H (4-34) U/L Alkaline Phosphatase 210 H 199 H (38-126) U/L Total Protein 7.0 4.7 L (6.3-8.2) g/dL Albumin 3.9 3.0 L (3.5-5.0) g/dL Calcium panel 09/30/23 10/01/23 Range/Units 15:50 03:54 Calcium 9.2 8.3 L (8.4-10.2) mg/dL Phosphorus 2.9 (2.4-5.1) mg/dL Albumin 3.9 3.0 L (3.5-5.0) g/dL Pituitary panel 09/30/23 10/01/23 Range/Units 15:50 03:54 Sodium 136 L 140 (137-145) mmol/L Potassium 3.4 L 3.5 (3.5-5.1) mmol/L Chloride 109 H 110 H (98-107) mmol/L Carbon Dioxide 19 L 22.2 (22-30) mmol/L BUN 5 L <3.5 L (7-17) mg/dL Creatinine 0.58 0.5 L (0.52-1.04) mg/dL Glucose 100 H 82 (74-99) mg/dL Calcium 9.2 8.3 L (8.4-10.2) mg/dL Adrenal panel 09/30/23 10/01/23 Range/Units 15:50 03:54 Sodium 136 L 140 (137-145) mmol/L Potassium 3.4 L 3.5 (3.5-5.1) mmol/L Chloride 109 H 110 H (98-107) mmol/L Carbon Dioxide 19 L 22.2 (22-30) mmol/L BUN 5 L <3.5 L (7-17) mg/dL Creatinine 0.58 0.5 L (0.52-1.04) mg/dL Glucose 100 H 82 (74-99) mg/dL Calcium 9.2 8.3 L (8.4-10.2) mg/dL Total Bilirubin 1.7 H 1.9 H (0.2-1.3) mg/dL AST 531 H 414 H (14-36) U/L ALT 197 H 257 H (4-34) U/L Alkaline Phosphatase 210 H 199 H (38-126) U/L Total Protein 7.0 4.7 L (6.3-8.2) g/dL Albumin 3.9 3.0 L (3.5-5.0) g/dL Assessment and Plan (1) Abdominal pain Narrative/Plan: 48-year-old female status postcholecystectomy with elevated liver enzymes and pain. Patient also with dark urine. Suspect choledocholithiasis. Hopefully this is passing. No GI coverage. Patient may require transfer if liver enzymes remain elevated. Current Visit: Yes Status: Acute Code(s): R10.9 - UNSPECIFIED ABDOMINAL PAIN SNOMED Code(s): 36775041
[2023-10-01] MEDS: PIPERACILLIN-TAZOBACTAM 3.375 GM in SODIUM CHLORIDE 0.9% 100 ML IVPB SCH (16:55)
[2023-10-01] MEDS: METOPROLOL TARTRATE 50 MG TAB PO SCH (20:05)
[2023-10-01] MEDS: DULoxetine HCL 60 MG CAPSULE.DR PO SCH (21:45)
[2023-10-02 08:41] LABS: Basophils # (A) 0.04 X 10*3/uL (0.00-0.10); Basophils % (A) 0.7 %; Eosinophils # (A) 0.59 X 10*3/uL (0.04-0.35); Eosinophils % (A) 10.3 %; HCT 39.9 % (37.2-46.3); HGB 13.2 g/dL (12.0-15.0); Lymphocytes # (A) 1.23 X 10*3/uL (0.90-5.00); Lymphocytes % (A) 21.4 %; MCH 32.4 pg (27.0-32.0); MCHC 33.1 g/dL (32.0-37.0); MCV 97.8 FL (80.0-97.0); Monocytes # (A) 0.85 X 10*3/uL (0.20-1.00); Monocytes % (A) 14.8 %; NRBC Per 100 WBC 0 X 10*3/uL (0.00-0.01); Neutrophils # (A) 3.03 X 10*3/uL (1.80-7.70); Neutrophils % (A) 52.6 %; Platelet Count 190 X 10*3/uL (140-440); RBC 4.08 X 10*6/uL (4.10-5.20); WBC 5.75 X 10*3/uL (4.50-10.00)
[2023-10-02 09:16] LABS: ALT 192 U/L (8-44); AST 161 U/L (13-35); Albumin 2.9 g/dL (3.8-4.9); Albumin/Globulin Ratio 1.45 Ratio (1.60-3.17); Alkaline Phosphatase 223 U/L (41-126); BUN/Creat Ratio 6.43 Ratio (12.00-20.00); Blood Urea Nitrogen 4.5 mg/dL (9.0-27.0); Calcium 8.1 mg/dL (8.7-10.3); Carbon Dioxide 19.1 mmol/L (21.6-31.8); Chloride 108 mmol/L (96-109); Glucose 52 mg/dL (70-110); Potassium 3.6 mmol/L (3.5-5.5); Sodium 139 mmol/L (135-145); Total Bilirubin 2.7 mg/dL (0.3-1.2); Total Protein 4.9 g/dL (6.2-8.2)
--- NOTE | 2023-10-02 13:18 | P.CONS ---
History of Present Illness - Reason for Consult Consult date: 10/01/23 Pyrexia of unknown origin Requesting physician: Jordan Jj - Chief Complaint Fever and abdominal pain x 1 day - History of Present Illness Patient is a 48-year-old female with a past medical history significant for hypertension hyperlipidemia SVT history of colitis patient is status post laparoscopic cholecystectomy completed on 09/06/2023 patient was subsequently discharged home and patient mention she was doing well patient now presenting to the hospital complaining of right upper quadrant abdominal pain that woke Her from sleep patient describes the pain to be diffuse mostly in the upper abdominal area moderate to severe intensity he did have an associate of nausea but no vomiting and also have a fever of 101 F for the patient present to the hospital on arrival to the patient did have low-grade fever 100.1 F patient was not tachycardic hypotensive or hypoxic and no need for supplemental oxygen she did have white count of 8.5 creatinine 0.58baseline over 3.4 liver enzymes are elevated urine has been negative influenza RSV COVID testing was negative patient did have a chest x-ray peribronchial cuffing suggest bronchitis abdominal pelvis CT strandy edema at the gallbladder fossa which could be keeping in mind with recent cholecystectomy no well-defined fluid collection prominent fluid-filled small bowel consider ileus or enteritis and mild c ircumferential bladder wall thickening infectious disease was consulted for further management of antibiotic therapy Review of Systems Positive point and negatives has been mentioned in the HPI, complete review of systems was performed and all other systems are negative Past Medical History Past Medical History: Asthma, Hyperlipidemia, Hypertension, Skin Disorder, Supraventricular Tachycardia (SVT) Additional Past Medical History / Comment(s): Headaches, psorasis; colitis History of Any Multi-Drug Resistant Organisms: None Reported Past Surgical History: Cholecystectomy, Heart Catheterization, Tubal Ligation Additional Past Surgical History / Comment(s): heart ablation for PSVT, (L) breast biopsy; colonoscopy. wisdom teeth; bunion sx october 2021 Past Anesthesia/Blood Transfusion Reactions: No Reported Reaction Past Psychological History: Anxiety, Depression Smoking Status: Current every day smoker Past Alcohol Use History: Daily Past Drug Use History: None Reported Medications and Allergies Home Medications Medication Instructions Recorded Confirmed Type DULoxetine HCL [Cymbalta] 120 mg PO DAILY 11/30/21 10/01/23 History Metoprolol Tartrate [Lopressor] 50 mg PO BID 09/06/23 10/01/23 History Budesonide [Entocort EC] See Taper PO DIRECTED 10/01/23 10/01/23 History Colestipol HCl 1 gm PO DIRECTED 10/01/23 10/01/23 History cefUROXime axetiL [Ceftin] 500 mg PO BID #20 tab 10/04/23 Rx metroNIDAZOLE [Flagyl] 500 mg PO TID #30 tab 10/04/23 Rx Allergies Allergy/AdvReac Type Severity Reaction Status Date / Time ibuprofen AdvReac ULCERS Verified 10/01/23 11:09 Physical Exam Vitals: Vital Signs Temp Pulse Pulse Resp BP BP Pulse Ox 10/01/23 12:59 98.8 F 79 14 150/95 100 10/01/23 06:59 98.7 F 98 17 144/80 97 10/01/23 02:27 98.2 F 87 16 99/64 99 09/30/23 21:12 99.0 F 74 18 105/71 99 Intake and Output 10/01/23 10/01/23 10/01/23 06:59 14:59 22:59 Intake Total 100 Balance 100 Intake: Oral 100 Other: Voiding Method Toilet # Voids 4 3 GENERAL DESCRIPTION: Middle-aged female lying in bed, no distress. No tachypnea or accessory muscle of respiration use. HEENT: Shows Pallor , no scleral icterus. Oral mucous membrane is dry. No pharyngeal erythema or thrush NECK: Trachea central, no thyromegaly. LUNGS: Unlabored breathing. Clear to auscultation anteriorly. No wheeze or crackle. HEART: S1, S2, regular rate and rhythm. No loud murmur ABDOMEN: Soft, right upper quadrant and epigastric tenderness , no guarding or rigidity, EXTREMITIES: No edema of feet. SKIN: No rash, no masses palpable. NEUROLOGICAL: The patient is awake, alert, oriented x3, mood and affect normal. Results CBC & Chem 7: 10/04/23 04:49 10/04/23 04:49 Labs: Abnormal Lab Results - Last 24 Hours (Table) 09/30/23 09/30/23 09/30/23 Range/Units 15:50 15:50 18:11 Hct 46.6 H (34.0-46.0) % Lymphocytes # 0.6 L (1.0-4.8) k/uL Sodium 136 L (137-145) mmol/L Potassium 3.4 L (3.5-5.1) mmol/L Chloride 109 H (98-107) mmol/L Carbon Dioxide 19 L (22-30) mmol/L BUN 5 L (7-17) mg/dL Creatinine (0.6-1.5) mg/dL BUN/Creatinine Ratio (12.00-20.00) Ratio Glucose 100 H (74-99) mg/dL Calcium (8.7-10.3) mg/dL Total Bilirubin 1.7 H (0.2-1.3) mg/dL AST 531 H (14-36) U/L ALT 197 H (4-34) U/L Alkaline Phosphatase 210 H (38-126) U/L C-Reactive Protein (<1.0) mg/dL Total Protein (6.2-8.2) g/dL Albumin (3.8-4.9) g/dL Procalcitonin (0.02-0.09) ng/mL Urine Protein 1+ H (Negative) Urine Bilirubin 1+ H (Negative) Urine Mucus Many H (None) /hpf 10/01/23 10/01/23 10/01/23 Range/Units 03:54 10:40 10:40 Hct (34.0-46.0) % Lymphocytes # (1.0-4.8) k/uL Sodium (137-145) mmol/L Potassium (3.5-5.1) mmol/L Chloride 110 H (98-107) mmol/L Carbon Dioxide (22-30) mmol/L BUN <3.5 L (7-17) mg/dL Creatinine 0.5 L (0.6-1.5) mg/dL BUN/Creatinine Ratio <7.00 L (12.00-20.00) Ratio Glucose (74-99) mg/dL Calcium 8.3 L (8.7-10.3) mg/dL Total Bilirubin 1.9 H (0.2-1.3) mg/dL AST 414 H (14-36) U/L ALT 257 H (4-34) U/L Alkaline Phosphatase 199 H (38-126) U/L C-Reactive Protein 4.7 H (<1.0) mg/dL Total Protein 4.7 L (6.2-8.2) g/dL Albumin 3.0 L (3.8-4.9) g/dL Procalcitonin 0.12 H (0.02-0.09) ng/mL Urine Protein (Negative) Urine Bilirubin (Negative) Urine Mucus (None) /hpf Assessment and Plan (1) Cholangitis Status: Acute Code(s): K83.09 - OTHER CHOLANGITIS SNOMED Code(s): 28774690 (2) Fever Status: Acute Code(s): R50.9 - FEVER, UNSPECIFIED SNOMED Code(s): 826365248 Plan: 1patient presented to the hospital with abdominal pain nausea and fever and this patient was recently did have a laparoscopic gastric, now with evidence of elevated liver enzymes with a question of possible cholangitis versus retained gallstone and will need to call for later gram-negative both aerobes and anaerobes 2-we will start the patient on Zosyn 3.375 g every 8 hours 3-will need to monitor liver enzymes serially if not trending down will benefit from either MRCP or ERCP Multiple question concern answered We will follow on clinical condition and cultures to further adjust medication if needed Thank you for this consultation we will follow the patient along with you Dictation was produced using [employer] dictation software. please excuse any grammatical, word or spelling errors. Time with Patient: Greater than 30
--- NOTE | 2023-10-02 13:22 | P.PN ---
Subjective Progress Note Date: 10/02/23 patient is a 48-year-old lady with past medical history significant for hyperlipidemia, recent laparoscopic cholecystectomy who presented to the ER for abdominal pain and fever. Patient stated that she was all right last night when she was woken up with abdominal pain that was severe, located in the right upper quadrant, it was intermittent, nonradiating. Abdominal pain was associate with nausea. Denies any vomiting. Patient also complaining of fevers. There is no current shortness of breath. There was no complaint of orthopnea or PND. There is no complaint of swelling of feet. Because of his abdominal pain, patient went to the ER Initial lab work done in the ER showed WBC 8.5, hemoglobin 15.7, platelet count 257, sodium 136, potassium 3.4, glucose 100, bilirubin 1.7, AST 531, ALT 197, al k phos 210 Influenza A not detected Influenza B not detected RSV not detected COVID-19 not detected EKG done in the ER showed heart rate of 128, no ST segment elevation or depression seen, no T-wave inversions seen. UA done negative for any infection Chest x-ray done in the ER showed peribronchial cuffing suggesting bronchitis or asthma CT abdominal pelvis done showed strandy edema at the gallbladder fossa which could be in keeping with patient history of recent cholecystectomy. Prominent fluid-filled small bowel loops. Ultrasound abdomen done showed status postcholecystectomy with no abnormality seen in gallbladder fossa, no biliary dilatation Patient admitted to internal medicine service 10/01. Patient seen and examined. States she feels much better, abdominal pain has resolved. Denies any nausea or vomiting REVIEW OF SYSTEMS: CONSTITUTIONAL: No fever, no malaise,. CARDIOVASCULAR: No chest pain, no palpitations, no syncope. PULMONARY: No shortness of breath, no cough, GASTROINTESTINAL: As mentioned above NEUROLOGICAL: No headaches, no weakness, PHYSICAL EXAMINATION: GENERAL: The patient is alert and oriented x3, not in any acute distress. Well developed, well nourished. HEENT: Pupils are round and equally reacting to light. EOMI. No scleral icterus. No conjunctival pallor. Normocephalic, atraumatic. No pharyngeal erythema. No thyromegaly. CARDIOVASCULAR: S1 and S2 present. No murmurs, rubs, or gallops. PULMONARY: Chest is clear to auscultation, no wheezing or crackles. ABDOMEN: Soft, nontender, nondistended, normoactive bowel sounds. No palpable organomegaly. MUSCULOSKELETAL: No joint swelling or deformity. EXTREMITIES: No cyanosis, clubbing, or pedal edema. NEUROLOGICAL: Gross neurological examination did not reveal any focal deficits. SKIN: No rashes. Assessment and plan Fevers of unknown origin possible cholangitis Abdominal pain Recent history of lap yesenia Choledocholithiasis Hyponatremia Hypokalemia Acute transaminitis Hyperbilirubinemia Monitor vital signs Monitor CBC Monitor CMP Continue telemetry monitoring Follow-up on blood cultures Continue IV Zosyn Continue IV fluids Continue pain management Continue antiemetics Surgery following, no plan for transfer at this time as patient LFTs has improved ID following Labs and medication were reviewed.. Continue same treatment. Continue with symptomatic treatment. Resume home medication. Monitor labs and vitals. DVT and GI prophylaxis. Further recommendations as per clinical course of the patient Dictation was produced using [employer] dictation software. please excuse any gram matical, word or spelling errors. Objective - Vital Signs Vital signs: Vital Signs Temp 98.6 F 10/02/23 07:41 Pulse 70 10/02/23 07:41 Resp 17 10/02/23 07:41 BP 102/64 10/02/23 07:41 Pulse Ox 97 10/02/23 07:41 FiO2 Intake & Output 10/01/23 10/02/23 10/02/23 18:59 06:59 18:59 Intake Total 100 100 Balance 100 100 Intake: Oral 100 100 Other: Voiding Method Toilet Toilet Toilet # Voids 3 1 - Labs CBC & Chem 7: 10/02/23 05:07 10/02/23 05:07 Labs: Abnormal Lab Results - Last 24 Hours (Table) 10/01/23 10/02/23 10/02/23 Range/Units 10:40 05:07 05:07 RBC 4.08 L (4.10-5.20) X 10*6/uL MCV 97.8 H (80.0-97.0) FL MCH 32.4 H (27.0-32.0) pg Eosinophils # 0.59 H (0.04-0.35) X 10*3/uL Carbon Dioxide 19.1 L (21.6-31.8) mmol/L BUN 4.5 L (9.0-27.0) mg/dL BUN/Creatinine Ratio 6.43 L (12.00-20.00) Ratio Glucose 52 L (70-110) mg/dL Calcium 8.1 L (8.7-10.3) mg/dL Total Bilirubin 2.7 H (0.3-1.2) mg/dL AST 161 H (13-35) U/L ALT 192 H (8-44) U/L Alkaline Phosphatase 223 H (41-126) U/L Total Protein 4.9 L (6.2-8.2) g/dL Albumin 2.9 L (3.8-4.9) g/dL Albumin/Globulin Ratio 1.45 L (1.60-3.17) Ratio Procalcitonin 0.12 H (0.02-0.09) ng/mL
[2023-10-02 14:14] VITALS: BMI 23.1
--- NOTE | 2023-10-02 14:37 | P.PN ---
Subjective Progress Note Date: 10/02/23 CHIEF COMPLAINT: Abdominal pain HISTORY OF PRESENT ILLNESS: Patient admitted for suspected choledocholithiasis. She had recent lap yesenia on 09/05. Patient is reporting improving abdominal pain. She denies any nausea or vomiting. Afebrile. WBC 5.75. Total bilirubin did go up from 1.9-2.7 AST is down from 4 14-1 61 ALT 257 down to 192 alk phos 199 up to 223 PHYSICAL EXAM: VITAL SIGNS: Reviewed. GENERAL: Well-developed in no acute distress. ABDOMEN: Soft. Nondistended. Tenderness with palpation to right upper quadrant. Incision sites clean dry and intact NEUROLOGIC: Alert and oriented. Cranial nerves II through XII grossly intact. ASSESSMENT: 1. Suspected choledocholithiasis. Patient's liver enzymes are trending downwards. Suspect the patient has passed a stone. Total bilirubin and alk phos have increased 2. Recent laparoscopic cholecystectomy on September 05 PLAN: -Repeat LFTs and bilirubin in a.m. -Continue with clear liquid diet -Continue to monitor -Patient's liver enzymes are improving. She likely has passed a stone. No need for transfer at this time. Physician Driver License Examiner note has been reviewed by physician. Signing provider agrees with the documented findings, assessment, and plan of care. Objective - Vital Signs Vital signs: Vital Signs Temp 98.6 F 10/02/23 07:41 Pulse 70 10/02/23 07:41 Resp 17 10/02/23 07:41 BP 102/64 10/02/23 07:41 Pulse Ox 97 10/02/23 07:41 FiO2 Intake & Output 10/01/23 10/02/23 10/02/23 18:59 06:59 18:59 Intake Total 100 100 Balance 100 100 Weight 61.235 kg Intake: Oral 100 100 Other: Voiding Method Toilet Toilet Toilet # Voids 3 1 - Labs CBC & Chem 7: 10/02/23 05:07 10/02/23 05:07 Labs: Abnormal Lab Results - Last 24 Hours (Table) 10/01/23 10/02/23 10/02/23 Range/Units 10:40 05:07 05:07 RBC 4.08 L (4.10-5.20) X 10*6/uL MCV 97.8 H (80.0-97.0) FL MCH 32.4 H (27.0-32.0) pg Eosinophils # 0.59 H (0.04-0.35) X 10*3/uL Carbon Dioxide 19.1 L (21.6-31.8) mmol/L BUN 4.5 L (9.0-27.0) mg/dL BUN/Creatinine Ratio 6.43 L (12.00-20.00) Ratio Glucose 52 L (70-110) mg/dL Calcium 8.1 L (8.7-10.3) mg/dL Total Bilirubin 2.7 H (0.3-1.2) mg/dL AST 161 H (13-35) U/L ALT 192 H (8-44) U/L Alkaline Phosphatase 223 H (41-126) U/L Total Protein 4.9 L (6.2-8.2) g/dL Albumin 2.9 L (3.8-4.9) g/dL Albumin/Globulin Ratio 1.45 L (1.60-3.17) Ratio Procalcitonin 0.12 H (0.02-0.09) ng/mL
[2023-10-02] MEDS: ONDANSETRON 4 MG/2 ML VIAL IVP PRN (15:20)
[2023-10-03 08:55] LABS: BUN/Creat Ratio <4.38 Ratio (12.00-20.00); Blood Urea Nitrogen <3.5 mg/dL (9.0-27.0); Chloride 108 mmol/L (96-109); Glucose 82 mg/dL (70-110); Potassium 3.8 mmol/L (3.5-5.5); Sodium 141 mmol/L (135-145)
[2023-10-03 08:56] LABS: ALT 167 U/L (8-44); AST 126 U/L (13-35); Albumin 3.1 g/dL (3.8-4.9); Albumin/Globulin Ratio 1.48 Ratio (1.60-3.17); Alkaline Phosphatase 274 U/L (41-126); Calcium 8.3 mg/dL (8.7-10.3); Globulin 2.1 g/dL (1.6-3.3); Total Bilirubin 3.2 mg/dL (0.3-1.2); Total Protein 5.2 g/dL (6.2-8.2)
[2023-10-03 10:28] LABS: Basophils # (A) 0.03 X 10*3/uL (0.00-0.10); Basophils % (A) 0.8 %; Eosinophils # (A) 0.44 X 10*3/uL (0.04-0.35); Eosinophils % (A) 11.5 %; HCT 39.4 % (37.2-46.3); HGB 13.1 g/dL (12.0-15.0); Lymphocytes # (A) 0.76 X 10*3/uL (0.90-5.00); Lymphocytes % (A) 19.8 %; MCH 33.1 pg (27.0-32.0); MCHC 33.2 g/dL (32.0-37.0); MCV 99.5 FL (80.0-97.0); Mean Platelet Volume 10.1 FL (9.5-12.2); Monocytes # (A) 0.61 X 10*3/uL (0.20-1.00); Monocytes % (A) 15.9 %; NRBC Per 100 WBC 0 X 10*3/uL (0.00-0.01); Neutrophils # (A) 1.98 X 10*3/uL (1.80-7.70); Neutrophils % (A) 51.5 %; Platelet Count 185 X 10*3/uL (140-440); RBC 3.96 X 10*6/uL (4.10-5.20); RDW 12.8 % (11.5-14.5); WBC 3.84 X 10*3/uL (4.50-10.00)
--- NOTE | 2023-10-03 13:56 | P.PN ---
Subjective Progress Note Date: 10/03/23 patient is a 48-year-old lady with past medical history significant for hyperlipidemia, recent laparoscopic cholecystectomy who presented to the ER for abdominal pain and fever. Patient stated that she was all right last night when she was woken up with abdominal pain that was severe, located in the right upper quadrant, it was intermittent, nonradiating. Abdominal pain was associate with nausea. Denies any vomiting. Patient also complaining of fevers. There is no current shortness of breath. There was no complaint of orthopnea or PND. There is no complaint of swelling of feet. Because of his abdominal pain, patient went to the ER Initial lab work done in the ER showed WBC 8.5, hemoglobin 15.7, platelet count 257, sodium 136, potassium 3.4, glucose 100, bilirubin 1.7, AST 531, ALT 197, al k phos 210 Influenza A not detected Influenza B not detected RSV not detected COVID-19 not detected EKG done in the ER showed heart rate of 128, no ST segment elevation or depression seen, no T-wave inversions seen. UA done negative for any infection Chest x-ray done in the ER showed peribronchial cuffing suggesting bronchitis or asthma CT abdominal pelvis done showed strandy edema at the gallbladder fossa which could be in keeping with patient history of recent cholecystectomy. Prominent fluid-filled small bowel loops. Ultrasound abdomen done showed status postcholecystectomy with no abnormality seen in gallbladder fossa, no biliary dilatation Patient admitted to internal medicine service 10/01. Patient seen and examined. States she feels much better, abdominal pain has resolved. Denies any nausea or vomiting 10/02. Patient seen and examined. Denies abdominal pain. Tolerating diet. REVIEW OF SYSTEMS: CONSTITUTIONAL: No fever, no malaise,. CARDIOVASCULAR: No chest pain, no palpitations, no syncope. PULMONARY: No shortness of breath, no cough, GASTROINTESTINAL: As mentioned above NEUROLOGICAL: No headaches, no weakness, PHYSICAL EXAMINATION: GENERAL: The patient is alert and oriented x3, not in any acute distress. Well developed, well nourished. HEENT: Pupils are round and equally reacting to light. EOMI. No scleral icterus. No conjunctival pallor. Normocephalic, atraumatic. No pharyngeal erythema. No thyromegaly. CARDIOVASCULAR: S1 and S2 present. No murmurs, rubs, or gallops. PULMONARY: Chest is clear to auscultation, no wheezing or crackles. ABDOMEN: Soft, nontender, nondistended, normoactive bowel sounds. No palpable organomegaly. MUSCULOSKELETAL: No joint swelling or deformity. EXTREMITIES: No cyanosis, clubbing, or pedal edema. NEUROLOGICAL: Gross neurological examination did not reveal any focal deficits. SKIN: No rashes. Assessment and plan Fevers of unknown origin possible cholangitis Abdominal pain Recent history of lap yesenia Choledocholithiasis Hyponatremia Hypokalemia Acute transaminitis Hyperbilirubinemia Monitor vital signs Monitor CBC Monitor CMP Continue telemetry monitoring Monitor LFTs Follow-up on blood cultures Continue IV Zosyn Continue pain management Continue antiemetics Surgery following, no plan for transfer at this time as patient LFTs has improved ID following Labs and medication were reviewed.. Continue same treatment. Continue with symptomatic treatment. Resume home medication. Monitor labs and vitals. DVT and GI prophylaxis. Further recommendations as per clinical course of the patient Dictation was produced using [employer] dictation software. please excuse any grammatical, word or spelling errors. Objective - Vital Signs Vital signs: Vital Signs Temp 98.4 F 10/03/23 07:37 Pulse 65 10/03/23 07:37 Resp 16 10/03/23 07:37 BP 120/76 10/03/23 07:37 Pulse Ox 99 10/03/23 07:37 FiO2 Intake & Output 10/02/23 10/03/23 10/03/23 18:59 06:59 18:59 Intake Total 100 Balance 100 Weight 61.235 kg Intake: Oral 100 Other: Voiding Method Toilet Toilet # Voids 2 3 - Labs CBC & Chem 7: 10/02/23 05:07 10/03/23 04:34 Labs: Abnormal Lab Results - Last 24 Hours (Table) 10/01/23 10/03/23 Range/Units 03:54 04:34 WBC 3.84 L (4.50-10.00) X 10*3/uL RBC 3.96 L (4.10-5.20) X 10*6/uL MCV 99.5 H (80.0-97.0) FL MCH 33.1 H (27.0-32.0) pg Lymphocytes # 0.76 L (0.90-5.00) X 10*3/uL Eosinophils # 0.44 H (0.04-0.35) X 10*3/uL BUN <3.5 L (9.0-27.0) mg/dL BUN/Creatinine Ratio <4.38 L (12.00-20.00) Ratio Calcium 8.3 L (8.7-10.3) mg/dL Total Bilirubin 3.2 H (0.3-1.2) mg/dL AST 126 H (13-35) U/L ALT 167 H (8-44) U/L Alkaline Phosphatase 274 H (41-126) U/L Total Protein 5.2 L (6.2-8.2) g/dL Albumin 3.1 L (3.8-4.9) g/dL Albumin/Globulin Ratio 1.48 L (1.60-3.17) Ratio Microbiology - Last 24 Hours (Table) 10/01/23 10:45 Blood Culture - Preliminary Blood 10/01/23 10:30 Blood Culture - Preliminary Blood
--- NOTE | 2023-10-03 14:39 | P.PN ---
Subjective Progress Note Date: 10/03/23 CHIEF COMPLAINT: Abdominal pain HISTORY OF PRESENT ILLNESS: Patient admitted for suspected choledocholithiasis. She had recent lap yesenia on 09/05. Patient reports that she is feeling better today. She did have some heartburn and nausea after eating last night. But she was able to eat a small amount of Jell-O this morning without any complaints. Her abdominal pain is improving. Her urine is less dark. Afebrile. Total bilirubin is up from 2.7-3.2 AST is down from 1 61-1 26 ALT 192 down to 167 alk phos is up from 223-274 PHYSICAL EXAM: VITAL SIGNS: Reviewed. GENERAL: Well-developed in no acute distress. ABDOMEN: Soft. Nondistended. Mild tenderness with palpation to right upper quadrant. Incision sites clean dry and intact NEUROLOGIC: Alert and oriented. Cranial nerves II through XII grossly intact. ASSESSMENT: 1. Suspected choledocholithiasis. Suspect the patient has passed a stone. 2. Recent laparoscopic cholecystectomy on September 05 PLAN: -Repeat CMP in a.m. -Earlier today Dr. Ruiz did discuss options with patient about discharge with outpatient labs on Monday with a close follow-up on Monday in the office and if needed arrange appointment for ERCP in the outpatient setting. Or that patient could remain in the hospital to monitor her liver enzymes. Patient is aware that there is no GI service available this week to do the ERCP. Initially patient did want to be discharged home. However, after discussion with her family patient has decided to remain in the hospital with repeat labs in AM. -Advance diet to regular -Continue to monitor Physician Commercial Collector note has been reviewed by physician. Signing provider agrees with the documented findings, assessment, and plan of care. Objective - Vital Signs Vital signs: Vital Signs Temp 98.7 F 10/03/23 12:48 Pulse 65 10/03/23 12:48 Resp 16 10/03/23 12:48 BP 123/79 10/03/23 12:48 Pulse Ox 96 10/03/23 12:48 FiO2 Intake & Output 10/02/23 10/03/23 10/03/23 18:59 06:59 18:59 Intake Total 100 Balance 100 Weight 61.235 kg Intake: Oral 100 Other: Voiding Method Toilet Toilet # Voids 2 3 - Labs CBC & Chem 7: 10/02/23 05:07 10/03/23 04:34 Labs: Abnormal Lab Results - Last 24 Hours (Table) 10/01/23 10/03/23 Range/Units 03:54 04:34 WBC 3.84 L (4.50-10.00) X 10*3/uL RBC 3.96 L (4.10-5.20) X 10*6/uL MCV 99.5 H (80.0-97.0) FL MCH 33.1 H (27.0-32.0) pg Lymphocytes # 0.76 L (0.90-5.00) X 10*3/uL Eosinophils # 0.44 H (0.04-0.35) X 10*3/uL BUN <3.5 L (9.0-27.0) mg/dL BUN/Creatinine Ratio <4.38 L (12.00-20.00) Ratio Calcium 8.3 L (8.7-10.3) mg/dL Total Bilirubin 3.2 H (0.3-1.2) mg/dL AST 126 H (13-35) U/L ALT 167 H (8-44) U/L Alkaline Phosphatase 274 H (41-126) U/L Total Protein 5.2 L (6.2-8.2) g/dL Albumin 3.1 L (3.8-4.9) g/dL Albumin/Globulin Ratio 1.48 L (1.60-3.17) Ratio Microbiology - Last 24 Hours (Table) 10/01/23 10:45 Blood Culture - Preliminary Blood 10/01/23 10:30 Blood Culture - Preliminary Blood
--- NOTE | 2023-10-03 16:13 | P.PN ---
Subjective Progress Note Date: 10/02/23 Principal diagnosis: Reason for follow-up is fever elevated enzymes/cholangitis Patient is a 48-year-old female with a past medical history significant for hypertension hyperlipidemia SVT history of colitis patient is status post laparoscopic cholecystectomy completed on 09/06/2023 presented to hospital abdominal pain fever did have elevated liver enzymes concern for p ossible cholangitis. On today's evaluation that is 10/02/2023, patient has been afebrile, patient is breathing comfortably and is currently on room air, patient denies having any significant cough no chest pain shortness of breath, patient denies nausea vomiting or diarrhea abdominal pain has decreased in intensity. Patient white count is 5.78, creatinine 0.7 blood culture has been negative Objective - Vital Signs Vital signs: Vital Signs Temp 98.6 F 10/02/23 07:41 Pulse 70 10/02/23 07:41 Resp 17 10/02/23 07:41 BP 102/64 10/02/23 07:41 Pulse Ox 97 10/02/23 07:41 FiO2 Intake & Output 10/01/23 10/02/23 10/02/23 18:59 06:59 18:59 Intake Total 100 100 Balance 100 100 Intake: Oral 100 100 Other: Voiding Method Toilet Toilet Toilet # Voids 3 1 - Exam GENERAL DESCRIPTION: Middle-aged female lying in bed in no distress RESPIRATORY SYSTEM: Unlabored breathing , decreased breath sounds at bases HEART: S1 S2 regular rate and rhythm , ABDOMEN: Soft , no tenderness EXTREMITIES: No edema feet - Labs CBC & Chem 7: 10/02/23 05:07 10/03/23 04:34 Labs: Abnormal Lab Results - Last 24 Hours (Table) 10/01/23 10/02/23 10/02/23 Range/Units 10:40 05:07 05:07 RBC 4.08 L (4.10-5.20) X 10*6/uL MCV 97.8 H (80.0-97.0) FL MCH 32.4 H (27.0-32.0) pg Eosinophils # 0.59 H (0.04-0.35) X 10*3/uL Carbon Dioxide 19.1 L (21.6-31.8) mmol/L BUN 4.5 L (9.0-27.0) mg/dL BUN/Creatinine Ratio 6.43 L (12.00-20.00) Ratio Glucose 52 L (70-110) mg/dL Calcium 8.1 L (8.7-10.3) mg/dL Total Bilirubin 2.7 H (0.3-1.2) mg/dL AST 161 H (13-35) U/L ALT 192 H (8-44) U/L Alkaline Phosphatase 223 H (41-126) U/L Total Protein 4.9 L (6.2-8.2) g/dL Albumin 2.9 L (3.8-4.9) g/dL Albumin/Globulin Ratio 1.45 L (1.60-3.17) Ratio Procalcitonin 0.12 H (0.02-0.09) ng/mL Assessment and Plan (1) Cholangitis Current Visit: Yes Status: Acute Code(s): K83.09 - OTHER CHOLANGITIS SNOMED Code(s): 72144701 (2) Fever Current Visit: Yes Status: Acute Code(s): R50.9 - FEVER, UNSPECIFIED SNOMED Code(s): 604915819 Plan: 1patient was in the hospital with abdominal pain nausea and fever and this patient was recently did have a laparoscopic gastric, now with evidence of elevated liver enzymes with a question of possible cholangitis versus retained gallstone and will need to call for later gram-negative both aerobes and anaerobes 2-patient to continue with Zosyn 3.375 g every 8 hours while waiting for the culture to finalize Dictation was produced using [employer] dictation software. please excuse any grammatical, word or spelling errors. Time with Patient: Less than 30
--- NOTE | 2023-10-03 16:14 | P.PN ---
Subjective Progress Note Date: 10/03/23 Principal diagnosis: Reason for follow-up is fever elevated enzymes/cholangitis Patient is a 48-year-old female with a past medical history significant for hypertension hyperlipidemia SVT history of colitis patient is status post laparoscopic cholecystectomy completed on 09/06/2023 presented to hospital abdominal pain fever did have elevated liver enzymes concern for p ossible cholangitis. On today's evaluation that is 10/03/2023, Patient is afebrile this morning and denies any chills, patient mention breathing comfortably and is currently on room air, patient denies any chest pain occasional cough patient denies any abdominal pain no diarrhea no nausea no vomiting, mention feeling better. No CBC was done today creatinine 0.8 liver enzymes still elevated blood culture has been negative Objective - Vital Signs Vital signs: Vital Signs Temp 98.7 F 10/03/23 12:48 Pulse 65 10/03/23 12:48 Resp 16 10/03/23 12:48 BP 123/79 10/03/23 12:48 Pulse Ox 96 10/03/23 12:48 FiO2 Intake & Output 10/02/23 10/03/23 10/03/23 18:59 06:59 18:59 Intake Total 100 Balance 100 Weight 61.235 kg Intake: Oral 100 Other: Voiding Method Toilet Toilet # Voids 2 3 - Exam GENERAL DESCRIPTION: Middle-aged female lying in bed in no distress RESPIRATORY SYSTEM: Unlabored breathing , decreased breath sounds at bases HEART: S1 S2 regular rate and rhythm , ABDOMEN: Soft , no tenderness EXTREMITIES: No edema feet - Labs CBC & Chem 7: 10/02/23 05:07 10/03/23 04:34 Labs: Abnormal Lab Results - Last 24 Hours (Table) 10/01/23 10/03/23 Range/Units 03:54 04:34 WBC 3.84 L (4.50-10.00) X 10*3/uL RBC 3.96 L (4.10-5.20) X 10*6/uL MCV 99.5 H (80.0-97.0) FL MCH 33.1 H (27.0-32.0) pg Lymphocytes # 0.76 L (0.90-5.00) X 10*3/uL Eosinophils # 0.44 H (0.04-0.35) X 10*3/uL BUN <3.5 L (9.0-27.0) mg/dL BUN/Creatinine Ratio <4.38 L (12.00-20.00) Ratio Calcium 8.3 L (8.7-10.3) mg/dL Total Bilirubin 3.2 H (0.3-1.2) mg/dL AST 126 H (13-35) U/L ALT 167 H (8-44) U/L Alkaline Phosphatase 274 H (41-126) U/L Total Protein 5.2 L (6.2-8.2) g/dL Albumin 3.1 L (3.8-4.9) g/dL Albumin/Globulin Ratio 1.48 L (1.60-3.17) Ratio Microbiology - Last 24 Hours (Table) 10/01/23 10:45 Blood Culture - Preliminary Blood 10/01/23 10:30 Blood Culture - Preliminary Blood Assessment and Plan (1) Cholangitis Current Visit: Yes Status: Acute Code(s): K83.09 - OTHER CHOLANGITIS SNOMED Code(s): 28589503 (2) Fever Current Visit: Yes Status: Acute Code(s): R50.9 - FEVER, UNSPECIFIED SNOMED Code(s): 469235841 Plan: 1patient was in the hospital with abdominal pain nausea and fever and this patient was recently did have a laparoscopic gastric, now with evidence of elevated liver enzymes with a question of possible cholangitis versus retained gallstone and will need to cover for later gram-negative both aerobes and anaerobes 2-patient showed clinical improvement however the liver enzymes still elevated and will benefit from ERCP, to continue with Zosyn 3.375 g every 8 hours while inpatient Dictation was produced using [email or web address] dictation software. please excuse any grammatical, word or spelling errors. Time with Patient: Less than 30
[2023-10-04 08:29] VITALS: BP 115/72; PULSE 68; RESP 18; TEMP 97.5
[2023-10-04 09:01] LABS: Basophils # (A) 0.06 X 10*3/uL (0.00-0.10); Basophils % (A) 1.1 %; Eosinophils # (A) 0.41 X 10*3/uL (0.04-0.35); Eosinophils % (A) 7.5 %; HCT 37.1 % (37.2-46.3); HGB 12.5 g/dL (12.0-15.0); Lymphocytes # (A) 1.84 X 10*3/uL (0.90-5.00); Lymphocytes % (A) 33.6 %; MCH 32.2 pg (27.0-32.0); MCHC 33.7 g/dL (32.0-37.0); MCV 95.6 FL (80.0-97.0); Mean Platelet Volume 9.9 FL (9.5-12.2); Monocytes # (A) 0.87 X 10*3/uL (0.20-1.00); Monocytes % (A) 15.9 %; NRBC Per 100 WBC 0 X 10*3/uL (0.00-0.01); Neutrophils # (A) 2.28 X 10*3/uL (1.80-7.70); Neutrophils % (A) 41.7 %; Platelet Count 170 X 10*3/uL (140-440); RBC 3.88 X 10*6/uL (4.10-5.20); RDW 13.2 % (11.5-14.5); WBC 5.47 X 10*3/uL (4.50-10.00)
[2023-10-04 09:17] LABS: ALT 127 U/L (8-44); AST 90 U/L (13-35); Albumin 2.8 g/dL (3.8-4.9); Alkaline Phosphatase 252 U/L (41-126); BUN/Creat Ratio <5.00 Ratio (12.00-20.00); Blood Urea Nitrogen <3.5 mg/dL (9.0-27.0); Calcium 8.2 mg/dL (8.7-10.3); Chloride 110 mmol/L (96-109); Glucose 95 mg/dL (70-110); Potassium 3.5 mmol/L (3.5-5.5); Sodium 142 mmol/L (135-145); Total Bilirubin 2.5 mg/dL (0.3-1.2); Total Protein 4.8 g/dL (6.2-8.2)
--- NOTE | 2023-10-04 12:59 | P.PN ---
Subjective Progress Note Date: 10/04/23 CHIEF COMPLAINT: Abdominal pain HISTORY OF PRESENT ILLNESS: Patient admitted for suspected choledocholithiasis. She had recent lap yesenia on 09/05. Patient is feeling better. She is tolerating diet. She did have a little heartburn last night. This is resolved. Her pain is improving. Denies any nausea or vomiting. Afebrile. Her urine is clearing. White count 5.47 total bilirubin is trending down from 3.2-2.5 LFTs and alk phos trending downwards Patient seen and examined with Dr. Ruiz PHYSICAL EXAM: VITAL SIGNS: Reviewed. GENERAL: Well-developed in no acute distress. ABDOMEN: Soft. Nondistended. Mild tenderness with palpation to right upper quadrant. Incision sites clean dry and intact NEUROLOGIC: Alert and oriented. Cranial nerves II through XII grossly intact. ASSESSMENT: 1. Suspected choledocholithiasis. Suspect the patient has passed a stone. 2. Recent laparoscopic cholecystectomy on September 05 PLAN: -Patient can be discharged from surgical standpoint. Patient is agreeable to discharge. -Recommend to continue a low-fat diet -Patient to have a repeat CMP on Monday with follow-up on Monday in the office with Dr. Ruiz and if needed appointment for ERCP in the outpatient setting can be arranged. Physician Net Application Architect note has been reviewed by physician. Signing provider agrees with the documented findings, assessment, and plan of care. Objective - Vital Signs Vital signs: Vital Signs Temp 97.5 F L 10/04/23 08:00 Pulse 68 10/04/23 08:00 Resp 18 10/04/23 08:00 BP 115/72 10/04/23 08:00 Pulse Ox 99 10/04/23 08:00 FiO2 Intake & Output 10/03/23 10/04/23 10/04/23 18:59 06:59 18:59 Intake Total 350 Balance 350 Intake: Oral 350 Other: Voiding Method Toilet Toilet Toilet # Voids 3 - Labs CBC & Chem 7: 10/04/23 04:49 10/04/23 04:49 Labs: Abnormal Lab Results - Last 24 Hours (Table) 10/04/23 10/04/23 Range/Units 04:49 04:49 RBC 3.88 L (4.10-5.20) X 10*6/uL Hct 37.1 L (37.2-46.3) % MCH 32.2 H (27.0-32.0) pg Eosinophils # 0.41 H (0.04-0.35) X 10*3/uL Chloride 110 H (96-109) mmol/L BUN <3.5 L (9.0-27.0) mg/dL BUN/Creatinine Ratio <5.00 L (12.00-20.00) Ratio Calcium 8.2 L (8.7-10.3) mg/dL Total Bilirubin 2.5 H (0.3-1.2) mg/dL AST 90 H (13-35) U/L ALT 127 H (8-44) U/L Alkaline Phosphatase 252 H (41-126) U/L Total Protein 4.8 L (6.2-8.2) g/dL Albumin 2.8 L (3.8-4.9) g/dL Albumin/Globulin Ratio 1.40 L (1.60-3.17) Ratio Microbiology - Last 24 Hours (Table) 10/01/23 10:45 Blood Culture - Preliminary Blood 10/01/23 10:30 Blood Culture - Preliminary Blood
--- NOTE | 2023-10-04 13:07 | P.DS ---
Providers Date of admission: 09/30/23 20:13 Expected date of discharge: 10/04/23 Attending physician: Rosette Lai Consults: 09/30/23 20:12 Consult Physician Routine Consulting Provider: Phi Ruiz Consult Reason/Comments: known,postOpGallbladder Do you want consulting provider notified?: Yes 10/01/23 10:29 Consult Physician Routine Consulting Provider: Anjali Rivero Consult Reason/Comments: Pyrexia of unknown origin Do you want consulting provider notified?: Yes Primary care physician: Bari Stark [facility] Course: Discharge diagnoses; Fevers of unknown origin possible cholangitis Abdominal pain Recent history of lap yesenia Choledocholithiasis Hyponatremia Hypokalemia Acute transaminitis Hyperbilirubinemia Hospital course; patient is a 48-year-old lady with past medical history significant for hyperlipidemia, recent laparoscopic cholecystectomy who presented to the ER for abdominal pain and fever. Patient stated that she was all right last night when she was woken up with abdominal pain that was severe, located in the right upper quadrant, it was intermittent, nonradiating. Abdominal pain was associate with nausea. Denies any vomiting. Patient also complaining of fevers. There is no current shortness of breath. There was no complaint of orthopnea or PND. There is no complaint of swelling of feet. Because of his abdominal pain, patient vicente t to the ER Initial lab work done in the ER showed WBC 8.5, hemoglobin 15.7, platelet count 257, sodium 136, potassium 3.4, glucose 100, bilirubin 1.7, AST 531, ALT 197, alk phos 210 Influenza A not detected Influenza B not detected RSV not detected COVID-19 not detected EKG done in the ER showed heart rate of 128, no ST segment elevation or depression seen, no T-wave inversions seen. UA done negative for any infection Chest x-ray done in the ER showed peribronchial cuffing suggesting bronchitis or asthma CT abdominal pelvis done showed strandy edema at the gallbladder fossa which could be in keeping with patient history of recent cholecystectomy. Prominent fluid-filled small bowel loops. Ultrasound abdomen done showed status postcholecystectomy with no abnormality seen in gallbladder fossa, no biliary dilatation Patient admitted to internal medicine service 10/01. Patient seen and examined. States she feels much better, abdominal pain has resolved. Denies any nausea or vomiting 10/02. Patient seen and examined. Denies abdominal pain. Tolerating diet. 10/03. Patient seen and examined. Patient LFTs improved. General surgery recommended outpatient follow-up. Patient tolerating regular diet. ID discharge recommended discharge patient on oral Ceftin and Flagyl for 10 days PHYSICAL EXAMINATION: GENERAL: The patient is alert and oriented x3, not in any acute distress. Well developed, well nourished. HEENT: Pupils are round and equally reacting to light. EOMI. No scleral icterus. No conjunctival pallor. Normocephalic, atraumatic. No pharyngeal erythema. No thyromegaly. CARDIOVASCULAR: S1 and S2 present. No murmurs, rubs, or gallops. PULMONARY: Chest is clear to auscultation, no wheezing or crackles. ABDOMEN: Soft, nontender, nondistended, normoactive bowel sounds. No palpable organomegaly. MUSCULOSKELETAL: No joint swelling or deformity. EXTREMITIES: No cyanosis, clubbing, or pedal edema. NEUROLOGICAL: Gross neurological examination did not reveal any focal deficits. SKIN: No rashes. Dictation was produced using [employer] dictation software. please excuse any grammatical, word or spelling errors. Patient Condition at Discharge: Good Plan - Discharge Summary Discharge Rx Participant: Yes New Discharge Prescriptions: New cefUROXime axetiL [Ceftin] 500 mg PO BID #20 tab metroNIDAZOLE [Flagyl] 500 mg PO TID #30 tab Continue DULoxetine HCL [Cymbalta] 120 mg PO DAILY Colestipol HCl 1 gm PO DIRECTED Budesonide [Entocort EC] See Taper PO DIRECTED Metoprolol Tartrate [Lopressor] 50 mg PO BID Discontinued Atorvastatin [Lipitor] 20 mg PO DAILY Discharge Medication List DULoxetine HCL [Cymbalta] 120 mg PO DAILY 11/30/21 [History] Metoprolol Tartrate [Lopressor] 50 mg PO BID 09/06/23 [History] Budesonide [Entocort EC] See Taper PO DIRECTED 10/01/23 [History] Colestipol HCl 1 gm PO DIRECTED 10/01/23 [History] cefUROXime axetiL [Ceftin] 500 mg PO BID #20 tab 10/04/23 [Rx] metroNIDAZOLE [Flagyl] 500 mg PO TID #30 tab 10/04/23 [Rx] Follow up Appointment(s)/Referral(s): Bari Stark [Primary Care Provider] - 1-2 days Phi Ruiz MD [STAFF PHYSICIAN] - 10/10/23 Ambulatory/Diagnostic Orders: Comprehensive Metabolic Panel [LAB.AMB] Time Frame: 10/07/23, Location: None Selected Activity/Diet/Wound Care/Special Instructions: Continue low-fat diet Discharge Disposition: HOME SELF-CARE
--- NOTE | 2023-10-04 16:19 | P.PN ---
Subjective Progress Note Date: 10/04/23 Principal diagnosis: Reason for follow-up is fever elevated enzymes/cholangitis Patient is a 48-year-old female with a past medical history significant for hypertension hyperlipidemia SVT history of colitis patient is status post laparoscopic cholecystectomy completed on 09/06/2023 presented to hospital abdominal pain fever did have elevated liver enzymes concern for p ossible cholangitis. On today's evaluation that is 10/04/2023,the patient denies any fever or any ch ills, patient is breathing comfortably on room air, the patient denies chest pain shortness of breath and no significant cough, patient denies abdominal pain, no nausea vomiting or diarrhea. Patient mention feeling better and has been tolerating her diet. Patient white count is 5.47, creatinine 0.7 bilirubin is down to 2.5 blood culture has been negative Objective - Vital Signs Vital signs: Vital Signs Temp 97.5 F L 10/04/23 08:00 Pulse 68 10/04/23 08:00 Resp 18 10/04/23 08:00 BP 115/72 10/04/23 08:00 Pulse Ox 99 10/04/23 08:00 FiO2 Intake & Output 10/03/23 10/04/23 10/04/23 18:59 06:59 18:59 Intake Total 350 Balance 350 Intake: Oral 350 Other: Voiding Method Toilet Toilet Toilet # Voids 3 - Exam GENERAL DESCRIPTION: Middle-aged female lying in bed in no distress RESPIRATORY SYSTEM: Unlabored breathing , decreased breath sounds at bases HEART: S1 S2 regular rate and rhythm , ABDOMEN: Soft , no tenderness EXTREMITIES: No edema feet - Labs CBC & Chem 7: 10/04/23 04:49 10/04/23 04:49 Labs: Abnormal Lab Results - Last 24 Hours (Table) 10/04/23 10/04/23 Range/Units 04:49 04:49 RBC 3.88 L (4.10-5.20) X 10*6/uL Hct 37.1 L (37.2-46.3) % MCH 32.2 H (27.0-32.0) pg Eosinophils # 0.41 H (0.04-0.35) X 10*3/uL Chloride 110 H (96-109) mmol/L BUN <3.5 L (9.0-27.0) mg/dL BUN/Creatinine Ratio <5.00 L (12.00-20.00) Ratio Calcium 8.2 L (8.7-10.3) mg/dL Total Bilirubin 2.5 H (0.3-1.2) mg/dL AST 90 H (13-35) U/L ALT 127 H (8-44) U/L Alkaline Phosphatase 252 H (41-126) U/L Total Protein 4.8 L (6.2-8.2) g/dL Albumin 2.8 L (3.8-4.9) g/dL Albumin/Globulin Ratio 1.40 L (1.60-3.17) Ratio Microbiology - Last 24 Hours (Table) 10/01/23 10:45 Blood Culture - Preliminary Blood 10/01/23 10:30 Blood Culture - Preliminary Blood Assessment and Plan (1) Cholangitis Status: Acute Code(s): K83.09 - OTHER CHOLANGITIS SNOMED Code(s): 94874909 (2) Fever Status: Acute Code(s): R50.9 - FEVER, UNSPECIFIED SNOMED Code(s): 044926914 Plan: 1patient was in the hospital with abdominal pain nausea and fever and this patient was recently did have a laparoscopic gastric, now with evidence of elevated liver enzymes with a question of possible cholangitis versus retained gallstone and will need to cover for later gram-negative both aerobes and anaerobes 2-patient has shown clinical improvement patient white count is normalized bilirubin is trending down has been tolerating her diet patient has been cleared for discharge by admitting and surgical team will consider a 10-day course of oral Ceftin and Flagyl on discharge advised to call if any recurrence of fever or right-sided abdominal pain Dictation was produced using authorGEN dictation software. please excuse any grammatical, word or spelling errors. Time with Patient: Less than 30
== END 2023-10-04 14:27 | disposition home or self-care (01) | DRG 252 ==
LOC: EC 15:20 → 4SSUR 20:13
PROVIDERS: ADMIT Hospitalist; ATTEND Hospitalist
DX: K91.86 Retained cholelithiasis following cholecystectomy (principal); E87.1 Hypo-osmolality and hyponatremia; E87.6 Hypokalemia; R74.01 Elevation of levels of liver transaminase levels; E80.6 Other disorders of bilirubin metabolism; F17.200 Nicotine dependence, unspecified, uncomplicated; I47.10 Supraventricular tachycardia, unspecified; F32.A Depression, unspecified; F41.9 Anxiety disorder, unspecified; E78.5 Hyperlipidemia, unspecified; F10.10 Alcohol abuse, uncomplicated; I10 Essential (primary) hypertension; J45.909 Unspecified asthma, uncomplicated; Z79.899 Other long term (current) drug therapy; Z90.49 Acquired absence of other specified parts of digestive tract; Z11.52 Encounter for screening for COVID-19; Z88.6 Allergy status to analgesic agent
CPT/HCPCS: 36415; 71046; 74177; 76705; 80053; 81001; 82150; 83605; 83690; 83735; 84100; 84145; 85025; 85652; 86140; 87040; 87636; 93005; 96361; 96365; 96372; 96375; 99285

== ENCOUNTER → 2024-07-30 | Outpatient (CLI) | payer MEDICAID ==
--- NOTE | 2024-07-30 20:40 | US ---
EXAMINATION TYPE: US pelvic complete DATE OF EXAM: 07/30/2024 COMPARISON: CT 09/30/2023 CLINICAL INDICATION: Female, 48 years old with history of N92.6 IRREG MENSTRUATION; Irregular, heavy bleeding x couple months, patient states her last regular period was in April TECHNIQUE: Transabdominal (TA). FINDINGS: Date of LMP: April 2024 EXAM MEASUREMENTS: Uterus: 7.9 x 3.1 x 4.8 cm Endometrial Stripe: 0.9 cm Right Ovary: 2.7 x 1.4 x 2.0 cm Left Ovary: 2.8 x 1.2 x 1.5 cm 1. Uterus: anteverted and otherwise without gross abnormality. 2. Endometrium: appears wnl 3. Right Ovary: wnl with a 1.4 cm dominant follicle or functional cyst within. 4. Left Ovary: wnl without follicular change. 5. Bilateral Adnexa: wnl 6. Posterior cul-de-sac: wnl IMPRESSION: Unremarkable transabdominal sonographic examination of the pelvis. [facility], , 07/30/2024 8:38 PM
--- NOTE | 2024-07-31 09:23 | MM ---
Reason for Exam: Screening (asymptomatic). Last mammogram was performed 6 year(s) and 6 month(s) ago. Patient History: Menarche at age 18. First Full-Term at age 27. Perimenopausal. MG stereo VAD BX LT - 2 on the Left side. Maternal aunt had breast cancer. Maternal aunt had breast cancer. Maternal aunt had breast cancer. Last menstrual period: 07/22/2024 Risk Values: Laura 5 year model risk: 1.3%. NCI Lifetime model risk: 11.5%. Prior Study Comparison: 01/05/2018 Bilateral Screening Mammogram, [facility] . Tissue Density: The breasts are heterogeneously dense, which may obscure small masses. Findings: Analyzed By CAD. There is no suspicious new group of microcalcifications or new suspicious mass in either breast. Overall Assessment: Negative, BI-RAD 1 Management: Screening Mammogram of both breasts in 1 year. Some advise annual bilateral breast ultrasound surveillance in patients with background dense tissue. Patient should continue monthly self-breast exams. A clinical breast exam by your physician is recommended on an annual basis. This exam should not preclude additional follow-up of suspicious palpable abnormalities. Note on Laura scores and lifetime risk: 1. A Laura score greater than 3% is considered moderate risk. If this is the case, consider specialist referral to assess eligibility for a risk reducing agent. 2. If overall lifetime risk for the development of breast cancer is 20% or higher, the patient may qualify for future screening with alternating mammogram and breast MRI. [facility], , 07/31/2024 9:20 AM. Electronically signed and approved by: Lazaro Kirby M.D.
== END | disposition home or self-care (01) ==
LOC: RADUSWWP 07:03
PROVIDERS: ATTEND Family Medicine
DX: Z12.31 Encounter for screening mammogram for malignant neoplasm of breast (principal); N92.6 Irregular menstruation, unspecified; R92.333 Mammographic heterogeneous density, bilateral breasts; Z80.3 Family history of malignant neoplasm of breast
CPT/HCPCS: 76856; 77063; 77067

== ENCOUNTER 2024-09-25 19:11 | Emergency (ER) | payer MEDICAID ==
[2024-09-25 19:24] VITALS: TEMP 98.6
--- NOTE | 2024-09-25 20:57 | XR ---
EXAMINATION TYPE: XR ribs LT w pa chest xray DATE OF EXAM: 09/25/2024 7:45 PM COMPARISON: 09/30/2023 CLINICAL INDICATION: Female, 49 years old with history of fall, TECHNIQUE: XR ribs LT w pa chest xray 2 view(s) ribs obtained. FINDINGS: The heart size is normal. The pulmonary vasculature is normal. The lungs are clear. Ribs: Left ribs are examined in 2 projections. No displaced rib fractures are evident. No pneumothora x is evident on these images. Some costochondral cartilage calcification is noted. Nonspecific bowel gas is within the abdomen. There are some air-fluid levels present. IMPRESSION: 1. No acute left rib fractures. 2. Nonspecific air-fluid levels within the abdomen within the [id number]. Follow-up can be perform ed as clinically indicated. [facility], , 09/25/2024 8:55 PM
--- NOTE | 2024-09-25 21:42 | ED ---
General Adult HPI - General Chief complaint: Fall Stated complaint: Fall/L Side Pain Time Seen by Provider: 09/25/24 20:46 Source: patient, RN notes reviewed Mode of arrival: ambulatory Limitations: no limitations - History of Present Illness Initial comments: 49-year-old female presents to the emergency department for evaluation of left- sided rib and upper abdominal pain. Patient notes that she took a fall on Monday and since then has had worsening pain in the left upper abdomen. She went to walk-in clinic today and had x-rays performed. She was advised to come to the emergency department following this. Denies any known hematuria. She does endorse ecchymosis to the left flank. She denies any other injuries. - Related Data Home Medications Medication Instructions Recorded Confirmed DULoxetine HCL [Cymbalta] 120 mg PO DAILY 11/30/21 10/01/23 Metoprolol Tartrate [Lopressor] 50 mg PO BID 09/06/23 10/01/23 Budesonide [Entocort EC] See Taper PO DIRECTED 10/01/23 10/01/23 Colestipol HCl 1 gm PO DIRECTED 10/01/23 10/01/23 Previous Rx's Medication Instructions Recorded cefuroxime axetiL [Ceftin] 500 mg PO BID #20 tab 10/04/23 metroNIDAZOLE [Flagyl] 500 mg PO TID #30 tab 10/04/23 Allergies Allergy/AdvReac Type Severity Reaction Status Date / Time ibuprofen AdvReac ULCERS Verified 09/25/24 19:24 Review of Systems ROS Statement: Those systems with pertinent positive or pertinent negative responses have been documented in the HPI. ROS Other: All systems not noted in ROS Statement are negative. Past Medical History Past Medical History: Asthma, Hyperlipidemia, Hypertension, Skin Disorder, Supraventricular Tachycardia (SVT) Additional Past Medical History / Comment(s): Headaches, psorasis; colitis History of Any Multi-Drug Resistant Organisms: None Reported Past Surgical History: Cholecystectomy, Heart Catheterization, Tubal Ligation Additional Past Surgical History / Comment(s): heart ablation for PSVT, (L) breast biopsy; colonoscopy. wisdom teeth; bunion sx october 2021 Past Anesthesia/Blood Transfusion Reactions: No Reported Reaction Past Psychological History: Anxiety, Depression Smoking Status: Current every day smoker Past Alcohol Use History: Occasional Past Drug Use History: None Reported General Exam Limitations: no limitations General appearance: alert, in no apparent distress Head exam: Present: atraumatic, normocephalic, normal inspection Eye exam: Present: normal appearance, PERRL, EOMI. Absent: scleral icterus, conjunctival injection, periorbital swelling ENT exam: Present: normal exam, mucous membranes moist Respiratory exam: Present: normal lung sounds bilaterally. Absent: respiratory distress, wheezes, rales, rhonchi, stridor Cardiovascular Exam: Present: regular rate, normal rhythm, normal heart sounds. Absent: systolic murmur, diastolic murmur, rubs, gallop, clicks GI/Abdominal exam: Present: soft, tenderness (Left upper quadrant), normal bowel sounds. Absent: distended, guarding, rebound, rigid Extremities exam: Present: normal inspection, full ROM, normal capillary refill. Absent: tenderness, pedal edema, joint swelling, calf tenderness Back exam: Present: normal inspection Neurological exam: Present: alert, oriented X3 Psychiatric exam: Present: normal affect, normal mood Skin exam: Present: warm, dry, intact, other (Ecchymosis to the left flank). Absent: normal color Course Vital Signs 09/25/24 09/25/24 19:22 23:18 Temperature 98.6 F Pulse Rate 95 75 Respiratory 18 16 Rate Blood Pressure 123/85 116/82 O2 Sat by Pulse 99 100 Oximetry Medical Decision Making - Medical Decision Making Was pt. sent in by a medical professional or institution (PATRICK Pinedo, SCARFING MACHINE OPERATOR, urgent care, hospital, or usp...) When possible be specific @ -[No] Did you speak to anyone other than the patient for history (EMS, parent, family, police, friend...)? What history was obtained from this source @ -[No] Did you review nursing and triage notes (agree or disagree)? Why? @ -[I reviewed and agree with nursing and triage notes] Were old charts reviewed (outside hosp., previous admission, EMS record, old EKG, old radiological studies, urgent care reports/EKG's, usp records)? Report findings @ -[No old charts were reviewed] Differential Diagnosis (chest pain, altered mental status, abdominal pain women, abdominal pain men, vaginal bleeding, weakness, fever, dyspnea, syncope, headache, dizziness, GI bleed, back pain, seizure, CVA, palpatations, mental health, musculoskeletal)? @ -[not applicable] EKG interpreted by me (3pts min.). @ -[As above] X-rays interpreted by me (1pt min.). @ -[None done] CT interpreted by me (1pt min.). @ -[None done] U/S interpreted by me (1pt. min.). @ -[None done] What testing was considered but not performed or refused? (CT, X-rays, U/S, labs)? Why? @ -[None] What meds were considered but not given or refused? Why? @ -[None] Did you discuss the management of the patient with other professionals (professionals i.e. DrFanny, PA, SCARFING MACHINE OPERATOR, lab, RT, psych nurse, school social worker, water valve repairer, teacher, multisensor intelligence officer, foster care case manager)? Give summary @ -[No] Was smoking cessation discussed for >3mins.? @ -[No] Was critical care preformed (if so, how long)? @ -[No] Were there social determinants of health that impacted care today? How? (Homelessness, low income, unemployed, alcoholism, drug addiction, transportation, low edu. Level, literacy, decrease access to med. care, intermediate, rehab)? @ -[No] Was there de-escalation of care discussed even if they declined (Discuss DNR or withdrawal of care, Hospice)? DNR status @ -[No] What co-morbidities impacted this encounter? (DM, HTN, Smoking, COPD, CAD, Cancer, CVA, ARF, Chemo, Hep., AIDS, mental health diagnosis, sleep apnea, morbid obesity)? @ -[None] Was patient admitted / discharged? Hospital course, mention meds given and route, prescriptions, significant lab abnormalities, going to OR and other pertinent info. @ -[hospital course] Undiagnosed new problem with uncertain prognosis? @ -[No] Drug Therapy requiring intensive monitoring for toxicity (Heparin, Nitro, Insulin, Cardizem)? @ -[No] Were any procedures done? @ -[No] Diagnosis/symptom? @ -[default] Acute, or Chronic, or Acute on Chronic? @ -[default] Uncomplicated (without systemic symptoms) or Complicated (systemic symptoms)? @ -[default] Side effects of treatment? @ -[No] Exacerbation, Progression, or Severe Exacerbation? @ -[No] Poses a threat to life or bodily function? How? (Chest pain, USA, LA, pneumonia, PE, COPD, DKA, ARF, appy, cholecystitis, CVA, Diverticulitis, Homicidal, Ninfa cidal, threat to staff... and all critical care pts) @ -[No] - Lab Data Result diagrams: 09/25/24 22:03 09/25/24 22:03 Lab Results 09/25/24 09/25/24 09/25/24 Range/Units 22:03 22:03 22:03 WBC 10.20 H (4.50-10.00) 10*3/uL RBC 4.18 (4.10-5.20) 10*6/uL Hgb 14.1 (12.0-15.0) g/dL Hct 40.1 (37.2-46.3) % MCV 95.9 (80.0-97.0) fL MCH 33.7 H (27.0-32.0) pg MCHC 35.2 (32.0-37.0) g/dL Plt Count 265 (140-440) 10*3/uL MPV 8.8 L (9.5-12.2) fL Immature Gran % (Auto) 0.3 % Neutrophils % 56.8 % Lymphocytes % 30.5 % Monocytes % 10.4 % Eosinophils % 1.6 % Basophils % 0.4 % Immature Gran # 0.03 (0.00-0.04) 10*3/uL Neutrophils # 5.80 (1.80-7.70) 10*3/uL Lymphocytes # 3.11 (0.90-5.00) 10*3/uL Monocytes # 1.06 H (0.20-1.00) 10*3/uL Eosinophils # 0.16 (0.04-0.35) 10*3/uL Basophils # 0.04 (0.00-0.10) 10*3/uL PT 9.9 L (10.0-12.5) sec INR 0.9 (<1.2) APTT 22.8 (22.0-30.0) sec Sodium (137-145) mmol/L Potassium (3.5-5.1) mmol/L Chloride (98-107) mmol/L Carbon Dioxide (22-30) mmol/L Anion Gap mmol/L BUN (7-17) mg/dL Creatinine (0.52-1.04) mg/dL Est GFR (CKD-EPI)AfAm (>60 ml/min/1.73 sqM) Est GFR (CKD-EPI)NonAf (>60 ml/min/1.73 sqM) Glucose (74-99) mg/dL Calcium (8.4-10.2) mg/dL Total Bilirubin (0.2-1.3) mg/dL AST (14-36) U/L ALT (4-34) U/L Alkaline Phosphatase (38-126) U/L Total Protein (6.3-8.2) g/dL Albumin (3.5-5.0) g/dL Lipase (23-300) U/L Urine Color Colorless Urine Appearance Clear (Clear) Urine pH 6.0 (5.0-8.0) Ur Specific [place] 1.007 (1.001-1.035) Urine Protein Negative (Negative) Urine Glucose (UA) Negative (Negative) Urine Ketones Negative (Negative) Urine Blood Negative (Negative) Urine Nitrite Negative (Negative) Urine Bilirubin Negative (Negative) Urine Urobilinogen <2.0 (<2.0) mg/dL Ur Leukocyte Esterase Negative (Negative) Urine HCG, Qual (Not Detectd) 09/25/24 09/25/24 Range/Units 22:03 22:03 WBC (4.50-10.00) 10*3/uL RBC (4.10-5.20) 10*6/uL Hgb (12.0-15.0) g/dL Hct (37.2-46.3) % MCV (80.0-97.0) fL MCH (27.0-32.0) pg MCHC (32.0-37.0) g/dL Plt Count (140-440) 10*3/uL MPV (9.5-12.2) fL Immature Gran % (Auto) % Neutrophils % % Lymphocytes % % Monocytes % % Eosinophils % % Basophils % % Immature Gran # (0.00-0.04) 10*3/uL Neutrophils # (1.80-7.70) 10*3/uL Lymphocytes # (0.90-5.00) 10*3/uL Monocytes # (0.20-1.00) 10*3/uL Eosinophils # (0.04-0.35) 10*3/uL Basophils # (0.00-0.10) 10*3/uL PT (10.0-12.5) sec INR (<1.2) APTT (22.0-30.0) sec Sodium 132 L (137-145) mmol/L Potassium 3.7 (3.5-5.1) mmol/L Chloride 104 (98-107) mmol/L Carbon Dioxide 22 (22-30) mmol/L Anion Gap 6 mmol/L BUN 9 (7-17) mg/dL Creatinine 0.64 (0.52-1.04) mg/dL Est GFR (CKD-EPI)AfAm >90 (>60 ml/min/1.73 sqM) Est GFR (CKD-EPI)NonAf >90 (>60 ml/min/1.73 sqM) Glucose 79 (74-99) mg/dL Calcium 9.5 (8.4-10.2) mg/dL Total Bilirubin 0.5 (0.2-1.3) mg/dL AST 23 (14-36) U/L ALT 18 (4-34) U/L Alkaline Phosphatase 83 (38-126) U/L Total Protein 6.1 L (6.3-8.2) g/dL Albumin 3.3 L (3.5-5.0) g/dL Lipase 163 (23-300) U/L Urine Color Urine Appearance (Clear) Urine pH (5.0-8.0) Ur Specific [place] (1.001-1.035) Urine Protein (Negative) Urine Glucose (UA) (Negative) Urine Ketones (Negative) Urine Blood (Negative) Urine Nitrite (Negative) Urine Bilirubin (Negative) Urine Urobilinogen (<2.0) mg/dL Ur Leukocyte Esterase (Negative) Urine HCG, Qual Not Detected (Not Detectd) Disposition Clinical Impression: Fall, Rib contusion, Ileus Disposition: HOME SELF-CARE Condition: Stable Instructions (If sedation given, give patient instructions): Fall Prevention (ED) Additional Instructions: Please follow up with your doctor. Return to the emergency department for new or worsening symptoms. Is patient prescribed a controlled substance at d/c from ED?: No Referrals: Pavel Thompson MD [Primary Care Provider] - 1-2 days
[2024-09-25 22:19] LABS: Basophils # (A) 0.04 10*3/uL (0.00-0.10); Basophils % (A) 0.4 %; Eosinophils # (A) 0.16 10*3/uL (0.04-0.35); Eosinophils % (A) 1.6 %; HCT 40.1 % (37.2-46.3); HGB 14.1 g/dL (12.0-15.0); Lymphocytes # (A) 3.11 10*3/uL (0.90-5.00); Lymphocytes % (A) 30.5 %; MCH 33.7 pg (27.0-32.0); MCHC 35.2 g/dL (32.0-37.0); MCV 95.9 fL (80.0-97.0); Mean Platelet Volume 8.8 fL (9.5-12.2); Monocytes # (A) 1.06 10*3/uL (0.20-1.00); Monocytes % (A) 10.4 %; Neutrophils % (A) 56.8 %; Platelet Count 265 10*3/uL (140-440); RBC 4.18 10*6/uL (4.10-5.20); RDW 13.2 % (11.5-14.5)
[2024-09-25 22:21] LABS: Appearance,Urine Clear (Clear); Bilirubin,Urine Negative (Negative); Blood,Urine Negative (Negative); Color,Urine Colorless; Glucose,Urine (UA) Negative (Negative); Ketones,Urine Negative (Negative); Leukocyte Esterase,Urine Negative (Negative); Nitrite,Urine Negative (Negative); Protein,Urine Negative (Negative); Specific Gravity,Urine 1.007 (1.001-1.035); Urobilinogen,Urine <2.0 mg/dL (<2.0)
[2024-09-25 22:34] LABS: INR 0.9 (<1.2); Partial Thromboplastin Time 22.8 sec (22.0-30.0); Prothrombin Time 9.9 sec (10.0-12.5)
[2024-09-25 22:43] LABS: ALT 18 U/L (4-34); AST 23 U/L (14-36); African American GFR (CKD) >90 (>60 ml/min/1.73 sqM); Albumin 3.3 g/dL (3.5-5.0); Alkaline Phosphatase 83 U/L (38-126); Anion Gap 6 mmol/L; Blood Urea Nitrogen 9 mg/dL (7-17); Calcium 9.5 mg/dL (8.4-10.2); Carbon Dioxide 22 mmol/L (22-30); Chloride 104 mmol/L (98-107); Glucose 79 mg/dL (74-99); Lipase 163 U/L (23-300); Non-African American GFR(CKD) >90 (>60 ml/min/1.73 sqM); Potassium 3.7 mmol/L (3.5-5.1); Sodium 132 mmol/L (137-145); Total Bilirubin 0.5 mg/dL (0.2-1.3); Total Protein 6.1 g/dL (6.3-8.2)
[2024-09-25] MEDS: KETOROLAC 15 MG/ML 1 ML VIAL IVP STA (23:36)
--- NOTE | 2024-09-26 00:16 | CT ---
EXAM: CT Abdomen and Pelvis With Intravenous Contrast CLINICAL HISTORY: lt sided abd pain, fall TECHNIQUE: Axial computed tomography images of the abdomen and pelvis with intravenous contrast. Coronal and sagittal reconstructions are performed. CTDI is 13.2 mGy and DLP is 565.2 mGy-cm. This CT exam was performed using one or more of the following dose reduction techniques: automated exposure control, adjustment of the mA and/or kV according to patient size, and/or use of iterative reconstruction technique. 678 images COMPARISON: 09/30/2023 FINDINGS: Lung bases: Unremarkable. No mass. No consolidation. ABDOMEN: Liver: Unremarkable. No mass. Gallbladder and bile ducts: No acute findings. Pancreas: Unremarkable. No mass. No ductal dilation. Spleen: Unremarkable. No splenomegaly. Adrenals: Unremarkable. No mass. Kidneys and ureters: Unremarkable. No solid mass. No hydronephrosis. Stomach and bowel: Mild dilatation of proximal colon measuring up to 7. 3 cm, dilated with gas and watery stool, may suggest ileus. Transitional zone is in proximal sigmoid colon. No bowel wall thickening or mass. PELVIS: Appendix: Normal appendix. Bladder: Unremarkable. No mass. Reproductive: No acute findings. ABDOMEN and PELVIS: Intraperitoneal space: Unremarkable. No free air. No significant fluid collection. Bones/joints: No acute findings. Soft tissues: Unremarkable. Vasculature: Small amount of atherosclerotic calcifications. No abdominal aortic aneurysm. Lymph nodes: Unremarkable. No enlarged lymph nodes. IMPRESSION: 1. No acute injury. 2. Mild colonic ileus.
[2024-09-26 00:53] VITALS: BP 117/75; PULSE 71; RESP 18
== END 2024-09-26 00:52 | disposition home or self-care (01) ==
LOC: EC 19:11
DX: S20.219A Contusion of unspecified front wall of thorax, initial encounter (principal); K56.7 Ileus, unspecified; F17.200 Nicotine dependence, unspecified, uncomplicated; Z88.6 Allergy status to analgesic agent; W18.30XA Fall on same level, unspecified, initial encounter
CPT/HCPCS: 36415; 80053; 83690; 85025; 85610; 85730; 81003; 81025; 71101; 74177; 99284; 96374; J1885; Q9967

== ENCOUNTER → 2024-09-27 | Day surgery (SDC) | payer MEDICAID ==
[~2024-09-27] MED LIST changes: -FAMOTIDINE 20 MG/2 ML VIAL IV PRN; -HYDROmorphone 1 MG/ML 1 ML SYRINGE IVP PRN; -LACTATED RINGERS 1,000 ML IV SCH; -LIDOCAINE 1% 20 ML VIAL (10MG/ML) FOR IV START INTRADERMA PRN; -MIDAZOLAM 2 MG/2 ML VIAL IV PRN; -ONDANSETRON 4 MG/2 ML VIAL IVP ONE; +PROPOFOL 10 MG/ML 20 ML VIAL IV ONE; -Pre Op ABX Message 1 EACH MISC MISCELLANE ONE; -SCOPOLAMINE 1.5MG/72HR PATCH TRANSDERM ONE
[2024-09-27] MEDS: IV FLUID CONTINUATION 1,000 ML IV ONE (11:18)
[2024-09-27 11:31] VITALS: TEMP 98.3
[2024-09-27] MEDS: LACTATED RINGERS 1,000 ML IV SCH (11:40)
--- NOTE | 2024-09-27 12:37 | P.PCN ---
Date of Procedure: 09/27/24 Procedure(s) Performed: BRIEF HISTORY: Patient is a 49-year-old pleasant white female scheduled for an elective colonoscopy as a part of screening for colon cancer. PROCEDURE PERFORMED: Colonoscopy. PREOPERATIVE DIAGNOSIS: Screening for colon cancer. IV sedation per Anesthesia. PROCEDURE: After informed consent was obtained, the patient, was brought into the endoscopy unit. IV sedation was administered by Anesthesia under continuous monitoring. Digital rectal examination was normal. Initially the Olympus CF-160 flexible video colonoscope was then inserted in the rectum, gradually advanced into the cecum without any difficulty. Careful examination was performed as the scope was gradually being withdrawn. Ileocecal valve and the appendiceal orifice were visualized and appeared normal. Prep was excellent. Terminal ileum was intubated and 20 cm visualized that appeared normal. Mucosa of the cecum, ascending colon, transverse colon, descending colon, sigmoid colon, and rectum appeared normal. Retroflexion was performed in the rectum and no lesions were seen. The patient tolerated the procedure well. IMPRESSION: Normal-appearing colon from rectum to cecum with no evidence of colitis or colorectal neoplasia. RECOMMENDATIONS: Findings of this examination were discussed with the patient as well as her family. He was advised to have repeat screening colonoscopy in 10 years..
[2024-09-27 13:09] VITALS: BP 112/78; PULSE 78; RESP 18
== END ==
LOC: ORWHC2ENDO 11:04
PROVIDERS: ATTEND Internal Medicine Gastroenterology
DX: Z12.11 Encounter for screening for malignant neoplasm of colon (principal); I47.10 Supraventricular tachycardia, unspecified; I10 Essential (primary) hypertension; E78.5 Hyperlipidemia, unspecified; F41.9 Anxiety disorder, unspecified; F32.A Depression, unspecified; F10.90 Alcohol use, unspecified, uncomplicated; Z79.899 Other long term (current) drug therapy; Z88.6 Allergy status to analgesic agent
CPT/HCPCS: 45378; 81025; J2704